=== PATIENT | female | born 1965 | race Caucasian/White ===

== ENCOUNTER 2016-09-18 15:46 | Inpatient (IN) | payer MEDICARE ==
[~2016-09-18] VITALS: Ht 172.7 cm; Wt 73.8 kg
[2016-09-18 15:47] VITALS: BP 129/59; PULSE 94; RESP 18; TEMP 98.6; O2SAT 99
--- NOTE | 2016-09-18 16:42 | PD ---
HPI Chief Complaint: Diabetic Time Seen by Provider: 16:41 Travel History International Travel<30 days: No Contact w/Intl Traveler<30days: No Traveled to known affect area: No History of Present Illness HPI 51-year-old female came to the emergency room with history of vomiting since last night. Patient is diabetic and feels very dehydrated. Her blood sugar in triage was 374. She says her whole body is hurting. Her mother is here with her as well and says that she has been coughing. Patient has history of pneumonia in the past couple times and on one occasion she required to be intubated. Here patient has been afebrile. She is awake and answering questions but appears to be anxious. She says she's been taking her insulin like she supposed to. PFSH Past Medical History Narrative Medical List of her past medical, surgical, social and family history was reviewed from the nursing note. Diabetes: Yes ?: Not LMP: MENOPAUSAL Social History Tobacco Use: Yes Allergies-Medications (Allergen,Severity, Reaction): Coded Allergies: Sulfa (Verified Allergy, Severe, Hives, 09/18/16) Comments List of her allergies reviewed from the nursing note. Reported Meds & Prescriptions Reported Meds & Active Scripts Active Reported Lamictal (Lamotrigine) 200 Mg Tab 200 Mg PO HS Vistaril (Hydroxyzine Pamoate) 25 Mg Cap 25 Mg PO BID Ventolin Hfa 18 GM Inh (Albuterol Sulfate) 90 Mcg/Act Aer 1 Puff INH Q4H Trazodone (Trazodone HCl) 100 Mg Tab 400 Mg PO HS Allergy Relief (Loratadine) 10 Mg Tab 10 Mg PO DAILY Bentyl (Dicyclomine HCl) 20 Mg Tab 20 Mg PO TID Folate (Folic Acid) 1 Mg Tab 1 Mg PO DAILY Pantoprazole (Pantoprazole Sodium) 40 Mg Tab 40 Mg PO DAILY Zantac (Ranitidine HCl) 150 Mg Tab 150 Mg PO BID Loperamide (Loperamide HCl) 2 Mg Tab 4 Mg PO TID PRN One tablet after each loose stool. Not to exceed 8 tablets per day. Potassium Chloride ER (Potassium Chloride) 10 Meq Cap 10 Meq PO DAILY Lasix (Furosemide) 40 Mg Tab 40 Mg PO DAILY Levothyroxine (Levothyroxine Sodium) 175 Mcg Tab 175 Mcg PO DAILY Gabapentin 600 Mg Tab 600 Mg PO TID Zocor (Simvastatin) 20 Mg Tab 20 Mg PO HS Humalog Inj (Insulin Human Lispro) 1,000 Unit/10 Ml Vial SQ ACHS Sliding Scale Levemir Inj (Insulin Detemir) 1,000 unit/ 10 ML Vial 8 Units SQ HS Do not mix with any other Insulin. Phenergan Supp (Promethazine HCl) 25 Mg Supp 25 Mg RECTAL BID PRN Narrative Medication Awaiting for the nurse to the med reconciliation. Review of Systems Except as stated in HPI: all other systems reviewed are Neg Physical Exam Narrative GENERAL: Awake, alert, anxious, moderate distress SKIN: Focused skin assessment warm/dry. HEAD: Atraumatic. Normocephalic. EYES: Pupils equal and round. No scleral icterus. No injection or drainage. ENT: No nasal bleeding or discharge. Dry mucous membrane NECK: Trachea midline. No JVD. CARDIOVASCULAR: Regular rate and rhythm. No murmur appreciated. RESPIRATORY: No accessory muscle use. Clear to auscultation. Breath sounds equal bilaterally. GASTROINTESTINAL: Abdomen soft, non-tender, nondistended. Hepatic and splenic margins not palpable. MUSCULOSKELETAL: No obvious deformities. No clubbing. No cyanosis. No edema. NEUROLOGICAL: Awake and alert. No obvious cranial nerve deficits. Motor grossly within normal limits. Normal speech. PSYCHIATRIC: Appropriate mood and affect; insight and judgment normal. Data Data Last Documented VS Vital Signs Date Time Temp Pulse Resp B/P Pulse Ox O2 Delivery O2 Flow Rate FiO2 09/18/16 18:39 105 16 146/71 97 Room Air 09/18/16 15:47 98.6 Orders Basic Metabolic Panel (Bmp) (09/18/16 16:48) Complete Blood Count With Diff (09/18/16 16:48) Blood Culture (09/18/16 16:48) Electrocardiogram (09/18/16 16:48) Beta Hydroxybutyrate (Acetone) (09/18/16 16:48) Urinalysis - C+S If Indicated (09/18/16 16:48) Chest, Single Ap (09/18/16 16:48) Blood Glucose (09/18/16 16:48) Ecg Monitoring (09/18/16 16:48) Iv Access Insert/Monitor (09/18/16 16:48) Oximetry (09/18/16 16:48) NPO (09/18/16 16:48) Sodium Chlor 0.9% 1000 Ml Inj (Ns 1000 M (09/18/16 16:48) Sodium Chloride 0.9% Flush (Ns Flush) (09/18/16 17:00) Insulin Human Regular Inj (Novolin R Inj (09/18/16 17:15) Blood Glucose (09/18/16 17:14) Prochlorperazine Inj (Compazine Inj) (09/18/16 18:45) Urine Culture (09/18/16 17:45) Ceftriaxone Inj (Rocephin Inj) (09/18/16 19:00) Admit Order (Ed Use Only) (09/18/16 19:15) Sodium Chlor 0.9% 1000 Ml Inj (Ns 1000 M (09/18/16 19:30) Labs Laboratory Tests Test 09/18/16 17:45 Sodium Level 137 MEQ/L Potassium Level 4.3 MEQ/L Chloride Level 98 MEQ/L Carbon Dioxide Level 28.6 MEQ/L Anion Gap 10 MEQ/L Blood Urea Nitrogen 23 MG/DL Creatinine 1.34 MG/DL Estimat Glomerular Filtration 42 ML/MIN Rate Random Glucose 331 MG/DL Calcium Level 8.5 MG/DL Total Bilirubin 0.4 MG/DL Direct Bilirubin 0.1 MG/DL Indirect Bilirubin 0.3 MG/DL Aspartate Amino Transf 18 U/L (AST/SGOT) Alanine Aminotransferase 23 U/L (ALT/SGPT) Alkaline Phosphatase 87 U/L Total Protein 7.1 GM/DL Albumin 3.4 GM/DL Lipase 34 U/L B-Hydroxybutyrate 1.89 MMOL/L White Blood Count 17.9 TH/MM3 Red Blood Count 3.93 MIL/MM3 Hemoglobin 11.9 GM/DL Hematocrit 36.3 % Mean Corpuscular Volume 92.5 FL Mean Corpuscular Hemoglobin 30.2 PG Mean Corpuscular Hemoglobin 32.7 % Concent Red Cell Distribution Width 12.8 % Platelet Count 220 TH/MM3 Mean Platelet Volume 8.6 FL Neutrophils (%) (Auto) 83.4 % Lymphocytes (%) (Auto) 8.3 % Monocytes (%) (Auto) 8.0 % Eosinophils (%) (Auto) 0.0 % Basophils (%) (Auto) 0.3 % Neutrophils # (Auto) 14.9 TH/MM3 Lymphocytes # (Auto) 1.5 TH/MM3 Monocytes # (Auto) 1.4 TH/MM3 Eosinophils # (Auto) 0.0 TH/MM3 Basophils # (Auto) 0.1 TH/MM3 CBC Comment DIFF FINAL Differential Comment Urine Color YELLOW Urine Turbidity HAZY Urine pH 6.0 Urine Specific [place] 1.019 Urine Protein 100 mg/dL Urine Glucose (UA) 1000 mg/dL Urine Ketones 40 mg/dL Urine Occult Blood MOD Urine Nitrite POS Urine Bilirubin NEG Urine Urobilinogen LESS THAN 2.0 MG/DL Urine Leukocyte Esterase MOD Urine RBC 4 /hpf Urine WBC 74 /hpf Urine Squamous Epithelial <1 /hpf Cells Urine Bacteria MANY /hpf Microscopic Urinalysis Comment CULTURE INDICATED MDM Medical Decision Making Medical Screen Exam Complete: Yes Emergency Medical Condition: Yes Medical Record Reviewed: Yes Interpretation(s) Twelve-lead EKG was reviewed by me. Normal sinus rhythm, normal axis, nonspecific ST-T wave changes. Heart rate of 96 bpm. Differential Diagnosis DKA, hyperglycemia, acute gastritis, UTI, pneumonia Narrative Course 5:13 PM awaiting for the blood test results. Patient is getting 10 units of subcutaneous insulin and 2 L of IV fluid bolus. A repeat blood glucose will be done and an hour. 6:54 PM blood test results are back. Patient does have ketonemia. UA suggestive of UTI. I've ordered 1 g of IV Rocephin for her. Patient continues to be nauseous and I've ordered IV Compazine. I would prefer to admit her since patient in DKA. Awaiting for the hospitalist to call back. Critical Care Narrative Aggregate critical care time was 45 minutes. Time to perform other separately billable procedures was not included in the critical care time. My time did not include minutes spent treating any other patients simultaneously or on activities that did not directly contribute to the patient's treatment. The services I provided to this patient were to treat and/or prevent clinically significant deterioration that could result in: DKA, fluid sensitization, UTI, antibiotic I provided critical care services requiring my management, as noted below: Chart data review, documentation time, medication orders and management, vital sign assessments/reviewing monitor data, ordering and reviewing lab tests, ordering and interpreting/reviewing x-rays and diagnostic studies, care of the patient and discussion of the patient with the admitting physicians. Procedures EKG Prior to Arrival: No Diagnosis Primary Impression: DKA (diabetic ketoacidoses) Qualified Code: E10.10 - Diabetic ketoacidosis without coma associated with type 1 diabetes mellitus Additional Impressions: Nausea & vomiting Qualified Code: R11.2 - Intractable vomiting with nausea, unspecified vomiting type UTI (urinary tract infection) Qualified Code: N39.0 - Urinary tract infection without hematuria, site unspecified Dehydration Kelsey Root MD September 18, 2016 16:42
[2016-09-18] MEDS ORDERED: SODIUM CHLOR 0.9% 1000 ML INJ 1,000 ML IV ONE ×2 (16:48→19:30)
[2016-09-18 17:00] VITALS: BP 141/93; PULSE 104; RESP 16; O2SAT 98
[2016-09-18] MEDS ORDERED: SODIUM CHLORIDE 0.9% FLUSH 10 ML FLUSH IVF PRN (17:00)
[2016-09-18 17:02] VITALS: O2SAT 97
[2016-09-18] MEDS ORDERED: INSULIN HUMAN REGULAR 1,000 UNITS/10 ML VIAL SQ ONE (17:15)
--- NOTE | 2016-09-18 17:15 | RADRPT ---
EXAM DATE/TIME: 09/18/2016 17:03 [facility] COMPARISON: No previous studies available for comparison. INDICATIONS : Cough MEDICAL HISTORY : Diabetes mellitus type II. Pneumonia SURGICAL HISTORY : None. ENCOUNTER: Initial ACUITY: 2 days PAIN SCORE: 0/10 LOCATION: Bilateral chest FINDINGS: A single view of the chest demonstrates the lungs to be symmetrically aerated without evidence of mas s, infiltrate or effusion. The cardiomediastinal contours are unremarkable. Osseous structures are intact. CONCLUSION: No acute disease. Jack Sung MD on September 18, 2016 at 17:13 Board Certified Radiologist. This report was verified electronically.
[2016-09-18 18:32] LABS: AUTOMATED NEUTROPHIL # 14.9 TH/MM3 (1.8-7.7); BASOPHIL # 0.1 TH/MM3 (0-0.2); BASOPHIL % 0.3 % (0.0-2.0); HEMATOCRIT 36.3 % (35.0-46.0); HEMO FLAGS DIFF FINAL; LYMPH % 8.3 % (9.0-44.0); LYMPHOCYTE # 1.5 TH/MM3 (1.0-4.8); MEAN CELL VOLUME 92.5 FL (80.0-100.0); MEAN CORPUSCULAR HEMOGLOBIN 30.2 PG (27.0-34.0); MEAN CORPUSCULAR HGB CONC 32.7 % (32.0-36.0); NEUT % 83.4 % (16.0-70.0); PLATELET COUNT 220 TH/MM3 (150-450); RED BLOOD COUNT 3.93 MIL/MM3 (4.00-5.30); RED CELL DISTRIBUTION WIDTH 12.8 % (11.6-17.2); WHITE BLOOD COUNT 17.9 TH/MM3 (4.0-11.0)
[2016-09-18 18:39] VITALS: BP 146/71; PULSE 105; RESP 16; O2SAT 97
[2016-09-18 18:45] LABS: BACTERIA, URINE MANY /hpf; BLOOD, URINE MOD (NEG); COMMENT (UR) CULTURE INDICATED; CULTURE IF INDICATED CULTURE INDICATED; GLUCOSE,URINE 1000 mg/dL (NEG); KETONE, URINE 40 mg/dL (NEG); NITRITE,URINE POS (NEG); SQUAMOUS EPITHELIAL CELL URINE <1 /hpf (0-5); URINE COLOR YELLOW (YELLW/STRAW)
[2016-09-18] MEDS ORDERED: PROCHLORPERAZINE INJ 10 MG/2 ML VIAL IV PUSH ONE (18:45)
[2016-09-18 18:52] LABS: BICARBONATE 28.6 MEQ/L (21.0-32.0); POTASSIUM 4.3 MEQ/L (3.5-5.1)
[2016-09-18 18:53] LABS: BETA-HYDROXYBUTYRATE 1.89 MMOL/L (0.00-0.39)
[2016-09-18] MEDS ORDERED: cefTRIAXone INJ 1,000 MG in SODIUM CHLORIDE 0.9% INJ 100 ML IV ONE (19:00)
[2016-09-18] MEDS ORDERED: SENNOSIDES 8.6 MG TAB PO PRN (19:45)
[2016-09-18] MEDS ORDERED: NALOXONE HCL 0.4 MG/ML AMP IV PRN (19:45)
[2016-09-18] MEDS ORDERED: SODIUM CHLORIDE 0.9% FLUSH 10 ML FLUSH IV FLUSH PRN (19:45)
[2016-09-18] MEDS ORDERED: ACETAMINOPHEN 325 MG TAB PO PRN (19:45)
[2016-09-18] MEDS: NICOTINE 14 MG/24 HR PATCH T-DERMAL SCH (19:45)
[2016-09-18] MEDS ORDERED: TRAZ100T4 PO (19:52)
[2016-09-18] MEDS ORDERED: ALLE10TA PO (19:52)
[2016-09-18] MEDS ORDERED: FOLI1TAB4 PO (19:52)
[2016-09-18] MEDS ORDERED: PROM1SUP7 RECTAL (19:52)
[2016-09-18] MEDS ORDERED: LOPE2TAB3 PO (19:52)
[2016-09-18] MEDS ORDERED: POTA10CA PO (19:52)
[2016-09-18] MEDS ORDERED: VENTAER INH (19:52)
[2016-09-18] MEDS ORDERED: HUMALOG SQ (19:52)
[2016-09-18] MEDS ORDERED: LAMI200T PO (19:52)
[2016-09-18] MEDS ORDERED: LEVO175T2 PO (19:52)
[2016-09-18] MEDS ORDERED: FURO1TAB60 PO (19:52)
[2016-09-18] MEDS ORDERED: GABA600T PO (19:52)
[2016-09-18] MEDS ORDERED: VIST25CA PO (19:52)
[2016-09-18] MEDS ORDERED: BENT20TA PO (19:52)
[2016-09-18] MEDS ORDERED: PANT40TA3 PO (19:52)
[2016-09-18] MEDS ORDERED: ZANT150T2 PO (19:52)
[2016-09-18] MEDS ORDERED: LEVEMIR SQ (19:52)
[2016-09-18] MEDS ORDERED: ZOCO20TA PO (19:52)
--- NOTE | 2016-09-18 19:52 | HHI.HP ---
[facility] No Primary Care Physician Admission Diagnosis DKA, UTI Diagnoses: Chief Complaint: N/V, abdominal pain Travel History International Travel<30 Days: No Contact w/Intl Traveler <30 Da: No Traveled to Known Affected Are: No History of Present Illness The patient is a 51-year-old female with past medical history of diabetes who is presenting to the hospital with nausea and vomiting as well as abdominal pain. The patient says that she ate a salad bar last night and shortly thereafter started to feel sick. She said she initially felt chills and then developed stomach pain along with nausea and vomiting. She says she has been vomiting all night and all day. She says the medications received in the emergency department has improved her vomiting. She is very thirsty at this time. The patient states her abdominal pain is a 9 out of 10 in severity. It is located at the center of her abdomen. She also describes low back pain which she attributes to possibly her kidneys. She also has pain in the back of her thighs. She says she does feel this way when her sugars get out of control sometimes. She did not sleep at all overnight. She denies any pain on urination. She says she is currently visiting from [place]. She says she does tend to come to the hospital frequently secondary to her brittle diabetes. She says she takes 8 units of Levemir at night and is covered by a NovoLog sliding scale. She adjusts her Levemir to 7 units at night when traveling as she is doing at this time. Review of Systems Except as stated in HPI: all other systems reviewed are Neg Past Family Social History Past Medical History Diabetes Degenerative disc disease Left kidney cancer status post surgery Thyroid cancer status post thyroidectomy Pancreatitis UTI Allergies: Coded Allergies: Sulfa (Verified Allergy, Severe, Hives, 09/18/16) Active Ordered Medications Current Medications Medications (Trade) Dose Ordered Sig/[place] Route Start Time Stop Time Status Last Admin Sodium Chloride 2 ml 2 ml UNSCH PRN IVF 09/18/16 17:00 (NS 1000 ml Inj) 1,000 ml @ 999 mls/hr BOLUS ONCE IV 09/18/16 19:30 09/18/16 20:30 09/18/16 19:21 (Habitrol 14 Mg Patch.24 Hr) 1 patch DAILY T-DERMAL 09/18/16 19:45 UNV Miscellaneous Information 1 1 DAILY T-DERMAL 09/19/16 09:00 UNV (NS 1000 ml Inj) 1,000 ml @ 100 mls/hr Q10H IV 09/18/16 19:33 UNV (NS Flush) 2 ml UNSCH PRN IV FLUSH 09/18/16 19:45 UNV (NS Flush) 2 ml BID IV FLUSH 09/18/16 21:00 UNV (Tylenol) 650 mg Q4H PRN PO 09/18/16 19:45 UNV (Zofran Inj) 4 mg Q6H PRN IVP 09/18/16 19:45 UNV (Colace) 100 mg Q12H PO 09/18/16 19:45 UNV (Senokot) 17.2 mg Q12H PRN PO 09/18/16 19:45 UNV (Tylenol) 650 mg Q6H PRN PO 09/18/16 19:45 UNV (Roxicodone) 10 mg Q4H PRN PO 09/18/16 19:45 UNV (Morphine Inj) 4 mg Q4H PRN IV 09/18/16 19:45 UNV (Roxicodone) 5 mg Q4H PRN PO 09/18/16 19:45 UNV Naloxone HCl 0.4 mg 0.4 mg UNSCH PRN IV 09/18/16 19:45 UNV (Rocephin Inj/NS Inj) 100 ml @ 200 mls/hr Q24H IV 09/19/16 19:00 UNV (Synthroid) 175 mcg DAILY@0600 PO 09/19/16 06:00 Family History The patient is adopted. Social History She smokes half a pack daily. She does not drink or use illicit substances. Physical Exam Vital Signs Vital Signs Date Time Temp Pulse Resp B/P Pulse Ox O2 Delivery O2 Flow Rate FiO2 09/18/16 18:39 105 16 146/71 97 Room Air 09/18/16 17:10 108 14 98 Room Air 09/18/16 17:02 97 Room Air 09/18/16 17:00 104 16 141/93 98 Room Air 09/18/16 15:47 98.6 94 18 129/59 99 Physical Exam GENERAL: This is a well-nourished, well-developed patient, in no apparent distress. SKIN: No rashes, ecchymoses or lesions. Cool and dry. HEAD: Atraumatic. Normocephalic. No temporal or scalp tenderness. EYES: Pupils equal round and reactive. Extraocular motions intact. No scleral icterus. No injection or drainage. ENT: Nose without bleeding, purulent drainage or septal hematoma. Throat without erythema, tonsillar hypertrophy or exudate. Uvula midline. Airway patent. NECK: Trachea midline. No JVD or lymphadenopathy. Supple, nontender, no meningeal signs. CARDIOVASCULAR: Tachycardic without murmurs, gallops, or rubs. RESPIRATORY: Clear to auscultation. Breath sounds equal bilaterally. No wheezes , rales, or rhonchi. GASTROINTESTINAL: Abdomen soft, diffusely tender, nondistended. No hepato- splenomegaly, or palpable masses. No guarding or rebound. MUSCULOSKELETAL: Extremities without clubbing, cyanosis, or edema. No joint tenderness, effusion, or edema noted. NEUROLOGICAL: Awake and alert. Cranial nerves II through XII intact. Motor and sensory grossly within normal limits. Five out of 5 muscle strength in all muscle groups. Normal speech. PSYCH: Anxious. Laboratory Laboratory Tests Test 09/18/16 17:45 White Blood Count 17.9 Red Blood Count 3.93 Hemoglobin 11.9 Hematocrit 36.3 Mean Corpuscular Volume 92.5 Mean Corpuscular Hemoglobin 30.2 Mean Corpuscular Hemoglobin 32.7 Concent Red Cell Distribution Width 12.8 Platelet Count 220 Mean Platelet Volume 8.6 Neutrophils (%) (Auto) 83.4 Lymphocytes (%) (Auto) 8.3 Monocytes (%) (Auto) 8.0 Eosinophils (%) (Auto) 0.0 Basophils (%) (Auto) 0.3 Neutrophils # (Auto) 14.9 Lymphocytes # (Auto) 1.5 Monocytes # (Auto) 1.4 Eosinophils # (Auto) 0.0 Basophils # (Auto) 0.1 CBC Comment DIFF FINAL Differential Comment Urine Color YELLOW Urine Turbidity HAZY Urine pH 6.0 Urine Specific [place] 1.019 Urine Protein 100 Urine Glucose (UA) 1000 Urine Ketones 40 Urine Occult Blood MOD Urine Nitrite POS Urine Bilirubin NEG Urine Urobilinogen LESS THAN 2.0 Urine Leukocyte Esterase MOD Urine RBC 4 Urine WBC 74 Urine Squamous Epithelial <1 Cells Urine Bacteria MANY Microscopic Urinalysis Comment CULTURE INDICATED Sodium Level 137 Potassium Level 4.3 Chloride Level 98 Carbon Dioxide Level 28.6 Anion Gap 10 Blood Urea Nitrogen 23 Creatinine 1.34 Estimat Glomerular Filtration 42 Rate Random Glucose 331 Calcium Level 8.5 B-Hydroxybutyrate 1.89 Date/Time Procedure Status Source Growth 09/18/16 18:15 Aerobic Blood Culture Received Blood Peripheral Pending 09/18/16 18:15 Anaerobic Blood Culture Received Blood Peripheral Pending 09/18/16 17:45 Urine Culture Received Urine Random Urine Pending Result Diagram: 09/18/16 1745 09/18/16 1745 Imaging Last Impressions Chest X-Ray 09/18/16 1648 Signed Impressions: Service Date/Time: Sunday, September 18, 2016 17:03 - CONCLUSION: No acute disease. Jack Sung MD Assessment and Plan Assessment and Plan Sepsis The pt is tachycardic and has leukocytosis in the setting of a UTI. She received ceftriaxone. - continue ceftriaxone. - follow urine and blood cultures. - IVFs. DKA The pt had a glucose of 331 on admission and a beta hydroxybutyric acid level of 1.89. Her anion gap was negative. She has been having nausea and vomiting. She received 10 units of insulin in the emergency department. - Advance clear liquid diet. - Continue normal saline. - Medium sliding scale. - Resume home Levemir if tolerating a diet. Monitor glucose closely. - Antiemetics as needed. Abdominal pain/ Nausea and vomiting It seems that the patient developed symptoms following eating at a salad bar. Possibly secondary to gastroenteritis. The patient also has a history of pancreatitis. - Check LFTs and a lipase level. - IV fluids. - Advance as tolerated. - Pain control and antiemetics as needed. - PPI. Acute renal insufficiency Likely prerenal secondary to above. - IV fluids and monitor creatinine. - Continue ceftriaxone. HTN Likely secondary to nausea, vomiting and pain. - Antiemetics and pain control as needed. - IV Vasotec as needed. Nicotine abuse The patient smokes half a pack daily. - Cessation instruction. - Nicotine patch. PPx: SCDs. Code Status Full. Discussed Condition With Pt, pt's mother, Dr. Root. Physician Certification 2 Midnight Certification Type: Admission for Inpatient Services Order for Inpatient Services The services are ordered in accordance with Medicare regulations or non- Medicare payer requirements, as applicable. In the case of services not specified as inpatient-only, they are appropriately provided as inpatient services in accordance with the 2-midnight benchmark. Estimated LOS (days): 2 days is the estimated time the patient will need to remain in the hospital, assuming treatment plan goals are met and no additional complications. Post-Hospital Plan: Home Jose Jefferson DO September 18, 2016 19:52
[2016-09-18] MEDS: MORPHINE SULFATE 4 MG/ML INJ IV PRN (19:58)
[2016-09-18 19:59] VITALS: BP 123/71; PULSE 109; RESP 20; O2SAT 99
[2016-09-18] MEDS ORDERED: GLUCAGON 1 MG/ML VIAL OTHER PRN (20:00)
[2016-09-18] MEDS: DOCUSATE SODIUM 100 MG CAP PO SCH (20:00)
[2016-09-18] MEDS: SODIUM CHLOR 0.9% 1000 ML INJ 1,000 ML IV SCH (20:00)
[2016-09-18] MEDS ORDERED: DEXTROSE 50% IN WATER 50 ML VIAL(D50) IV PUSH PRN (20:00)
[2016-09-18] MEDS ORDERED: ENALAPRILAT 1.25 MG/ML VIAL IV PUSH PRN (20:00)
[2016-09-18] MEDS: PANTOPRAZOLE SODIUM 40 MG VIAL IV PUSH SCH (20:00)
[2016-09-18] MEDS: INSULIN ASPART SUPPLEMENTAL SCALE SQ SCH (20:58)
[2016-09-18] MEDS: SODIUM CHLORIDE 0.9% FLUSH 10 ML FLUSH IV FLUSH SCH (21:00)
[2016-09-18 21:57] VITALS: BP 131/68; PULSE 112; RESP 20; TEMP 101.4; O2SAT 97
[2016-09-18] MEDS: ACETAMINOPHEN 325 MG TAB PO PRN (22:30)
[2016-09-18] MEDS: hydrOXYzine PAMOATE 25 MG CAP PO SCH (22:31)
[2016-09-18] MEDS: lamoTRIgine 100 MG TAB PO SCH (22:31)
[2016-09-18] MEDS: traZODone HCL 100 MG TAB PO SCH (22:31)
[2016-09-18 23:31] LABS: INDIRECT BILIRUBIN 0.3 MG/DL (0.0-0.8); TOTAL BILIRUBIN ADULT 0.4 MG/DL (0.2-1.0)
[2016-09-19] VITALS (11 sets, daily range): BP systolic 95–186; BP diastolic 52–85; PULSE 100–135; RESP 17–18; TEMP 98.2–102.6; O2SAT 93–99
[2016-09-19] MEDS: MORPHINE SULFATE 4 MG/ML INJ IV PRN ×5 (02:32→22:23)
[2016-09-19] MEDS ORDERED: DIATRIZOATE MEGLUM/DIATRIZOATE SOD 9 ML CUP PO ONE (02:57)
[2016-09-19] MEDS: AMPICILLIN-SULBACTAM INJ 3 GM in SODIUM CHLORIDE 0.9% INJ 100 ML IV SCH ×2 (03:25→08:10)
[2016-09-19] MEDS: ONDANSETRON HCL 4 MG/2 ML VIAL IVP PRN ×3 (03:27→20:46)
[2016-09-19 04:49] LABS: AUTOMATED NEUTROPHIL # 12.9 TH/MM3 (1.8-7.7); BASOPHIL % 0.3 % (0.0-2.0); EOSINOPHIL % 0.2 % (0.0-4.0); HEMATOCRIT 35.4 % (35.0-46.0); LYMPH % 6.5 % (9.0-44.0); MEAN CELL VOLUME 93.8 FL (80.0-100.0); MEAN CORPUSCULAR HEMOGLOBIN 31.1 PG (27.0-34.0); MEAN CORPUSCULAR HGB CONC 33.2 % (32.0-36.0); MONO % 9.7 % (0.0-8.0); NEUT % 83.3 % (16.0-70.0); PLATELET COUNT 205 TH/MM3 (150-450); RED BLOOD COUNT 3.78 MIL/MM3 (4.00-5.30); RED CELL DISTRIBUTION WIDTH 13.2 % (11.6-17.2); WHITE BLOOD COUNT 15.5 TH/MM3 (4.0-11.0)
[2016-09-19 04:53] LABS: HEMO FLAGS AUTO DIFF
[2016-09-19 04:54] LABS: ALKALINE PHOSPHATASE 100 U/L (45-117); ALT (GPT) 24 U/L (10-53); ANION GAP 11 MEQ/L (5-15); AST (GOT) 31 U/L (15-37); BICARBONATE 22.7 MEQ/L (21.0-32.0); BLOOD UREA NITROGEN 19 MG/DL (7-18); CHLORIDE 103 MEQ/L (98-107); GLOMERULAR FILTRATION RATE 46 ML/MIN (>89); POTASSIUM 4.3 MEQ/L (3.5-5.1); SODIUM (NA) 137 MEQ/L (136-145); TOTAL BILIRUBIN ADULT 0.4 MG/DL (0.2-1.0)
[2016-09-19] MEDS: SODIUM CHLOR 0.9% 1000 ML INJ 1,000 ML IV SCH ×3 (04:56→18:23)
[2016-09-19 05:40] LABS: SCAN/DIFF AUTO DIFF CONFIRMED
[2016-09-19] MEDS: INSULIN DETEMIR 100 UNITS/ML VIAL SQ SCH ×3 (05:45→20:39)
--- NOTE | 2016-09-19 06:26 | RADRPT ---
EXAM DATE/TIME: 09/19/2016 06:13 [facility] COMPARISON: No previous studies available for comparison. INDICATIONS : Medial abdominal pain. ORAL CONTRAST: Prescribed oral contrast ingested. RADIATION DOSE: 6.06 CTDIvol (mGy) MEDICAL HISTORY : Pancreatitis. Diverticulosis. Diabetes mellitus type 2.Renal cancer. SURGICAL HISTORY : section. ENCOUNTER: Initial ACUITY: 1 day PAIN SCALE: 8/10 LOCATION: medial abdomen TECHNIQUE: Volumetric scanning of the abdomen and pelvis was performed. Using automated exposure control and ad justment of the mA and/or kV according to patient size, radiation dose was kept as low as reasonably achievable to obtain optimal diagnostic quality images. FINDINGS: CT Abdomen: The liver, spleen, pancreas, kidneys, adrenals are unremarkable. There is no evidence for any appreciable pathological adenopathy, free fluid, or bowel obstruction. Tiny pericardial effusio n is seen. Chronic vascular calcifications are present involving the aorta, iliac arteries without an y significant stenosis or aneurysmal dilatations for technique. There is slight indistinct haziness i n bilateral perinephric spaces mainly on the left side of uncertain etiology most likely chronic. The re is slight scarring in the right middle lobe and lingula. CT pelvis: There is no evidence for mass, abscess formation, or any significant adenopathy within the pelvis. There is a tiny subcentimeter bone island in left proximal femur. There are degenerative keisha nges and possible bulging discs in the lower lumbosacral spine not adequately characterized. CONCLUSION: Tiny pericardial effusion and chronic changes. Raza Grimm MD on September 19, 2016 at 6:21 Board Certified Radiologist. This report was verified electronically.
[2016-09-19] MEDS: LEVOTHYROXINE SODIUM 25 MCG TAB PO SCH (06:43)
[2016-09-19] MEDS: INSULIN ASPART SUPPLEMENTAL SCALE SQ SCH ×4 (06:43→20:45)
[2016-09-19] MEDS: LEVOTHYROXINE SODIUM 150 MCG TAB PO SCH (06:43)
[2016-09-19] MEDS: SODIUM CHLORIDE 0.9% FLUSH 10 ML FLUSH IV FLUSH SCH ×2 (08:07→20:29)
[2016-09-19] MEDS: hydrOXYzine PAMOATE 25 MG CAP PO SCH ×2 (08:09→20:25)
[2016-09-19] MEDS: NICOTINE 14 MG/24 HR PATCH T-DERMAL SCH (08:09)
[2016-09-19] MEDS: REMOVE OLD PATCH T-DERMAL SCH (08:09)
[2016-09-19] MEDS: GABAPENTIN 100 MG CAP PO SCH ×3 (08:09→17:12)
[2016-09-19] MEDS: DOCUSATE SODIUM 100 MG CAP PO SCH ×2 (08:09→20:25)
--- NOTE | 2016-09-19 10:11 | HHI.PR ---
Subjective Remarks Patient seen for follow up sepsis/UTI. 09/19/16-patient seen this AM. Per nursing, micro called back with report of gram - rods growing in blood cx 09/18. BPs on the low end this AM (MAP as low as the 60s). Temp up to 101.4F overnight. Riddhi reports ab pain well controlled at this point. Nausea essentially resolved. Tolerating clears. Wants to advance diet. Also requests we change levemir to HS, per home regimen. No other complaints. No CP, SOB, or dizziness. Objective Vitals Vital Signs Date Time Temp Pulse Resp B/P Pulse Ox O2 Delivery O2 Flow Rate FiO2 09/19/16 08:00 98.2 100 17 113/55 96 09/19/16 04:00 101.2 126 18 137/63 93 09/19/16 00:00 101.0 105 18 95/52 93 09/18/16 21:57 101.4 112 20 131/68 97 09/18/16 20:28 16 09/18/16 19:59 109 20 123/71 99 09/18/16 18:39 105 16 146/71 97 Room Air 09/18/16 17:10 108 14 98 Room Air 09/18/16 17:02 97 Room Air 09/18/16 17:00 104 16 141/93 98 Room Air 09/18/16 15:47 98.6 94 18 129/59 99 I/O 09/18/16 09/18/16 09/18/16 09/19/16 09/19/16 09/19/16 07:00 15:00 23:00 07:00 15:00 23:00 Intake Total 153 ml 1165 ml Balance 153 ml 1165 ml Intake Oral 480 ml IV Total 153 ml 685 ml # Voids 2 # Bowel Movements 0 Result Diagram: 09/19/16 0403 09/19/16 0403 Objective Remarks GENERAL: Well-appearing. Sitting up in bed. Mild diaphoresis. SKIN: No rashes, ecchymoses or lesions. Cool and dry. NECK: Trachea midline. No JVD or lymphadenopathy. Supple, nontender, no meningeal signs. CARDIOVASCULAR: RRR. No murmurs. RESPIRATORY: Clear to auscultation. Breath sounds equal bilaterally. No wheezes , rales, or rhonchi. GASTROINTESTINAL: Abdomen soft, diffusely tender, nondistended. No hepato- splenomegaly, or palpable masses. No guarding or rebound. MUSCULOSKELETAL: Extremities without clubbing, cyanosis, or edema. No joint tenderness, effusion, or edema noted. NEUROLOGICAL: Awake and alert. Moves extremities well. A/P Problem List: (1) DKA (diabetic ketoacidoses) ICD Code: E13.10 Status: Acute (2) Sepsis ICD Code: A41.9 Status: Acute (3) UTI (urinary tract infection) ICD Code: N39.0 Status: Acute (4) Renal insufficiency ICD Code: N28.9 Status: Acute (5) Tobacco abuse ICD Code: Z72.0 Status: Acute (6) Nausea & vomiting ICD Code: R11.2 Status: Acute Assessment and Plan Sepsis: tachycadia + fever + leukocytosis in setting of likely UTI. - change unasyn (09/19-) to cefepime to cover pseudomonas while awaiting blood cx results, as below. S/p tx with rocephin x1 (09/18). - WBC trending down - check lactic acid - blood cultures now growing gram - rods. Will consult ID. Urine cx pending. - IVFs. Give additional 1L bolus this AM. DKA: The pt had a glucose of 331 on admission and a beta hydroxybutyric acid level of 1.89. Her anion gap was negative. She has been having nausea and vomiting. She received 10 units of insulin in the emergency department. - Advance diabetic diet. - Continue normal saline. - Medium sliding scale. Bedside glucose 350 this AM (serum 303). 12u insulin given. - Resume home levemir at this time as HS. Monitor daily ss requirement and adjust, as needed. - Antiemetics as needed. Abdominal pain/ Nausea and vomiting: It seems that the patient developed symptoms following eating at a salad bar. Possibly secondary to gastroenteritis. The patient also has a history of pancreatitis. - LFTs and lipase level ~ WNL - IV fluids. - Advance as tolerated. - Pain control with roxicodone. IV morphine for breakthrough. - Antiemetics as needed. - PPI. Acute renal insufficiency: Improving. Creatinine 1.34 on admission, now 1.23. Likely prerenal secondary to above. - IV fluids and monitor creatinine. HTN: Likely secondary to nausea, vomiting and pain. Pressures now on the low end (MAP 60-70s). - Antiemetics and pain control as needed. - IV Vasotec as needed. Nicotine abuse: The patient smokes half a pack daily. - Cessation instruction. - Nicotine patch. PPx: Alexis Davidson MD R3 September 19, 2016 10:11 - Cessation instruction. - Nicotine patch. PPx: Alexis Davidson MD R3 September 19, 2016 10:11
[2016-09-19] MEDS ORDERED: SODIUM CHLOR 0.9% 1000 ML INJ 1,000 ML IV ONE (10:15)
[2016-09-19] MEDS: CEFEPIME INJ 2,000 MG in SODIUM CHLORIDE 0.9% INJ 100 ML IV SCH ×2 (12:30→22:23)
--- NOTE | 2016-09-19 13:59 | PD.ID.CON ---
History of Present Illness Service ID Consult Requested By Reason for Consult Evaluation and Mment of Sepsis, Gram negative sudhir bacteremia. Primary Care Physician No Primary Care Physician Diagnoses: History of Present Illness is a 51 y/o CF with PMHx of renal cancer s.p partial resection of left kidney, thyroid cancer s.p thyroidectomy, DM 2 on insulin and recurrent UTIs. Patient reports to me "This is first time I have been told I have sepsis and I have never been treated for detention infections". With this background patient presents to the hospital with nausea and vomiting as well as abdominal pain. The patient says that she ate a salad bar last night and shortly thereafter started to feel sick. She said she initially felt chills and then developed stomach pain along with nausea and vomiting. She says she has been vomiting all night and all day. The patient states her abdominal pain is a 9 out of 10 in severity. It is located at the center of her abdomen. She also describes low back pain which she attributes to possibly her kidneys. She also has pain in the back of her thighs. She says she does feel this way when her sugars get out of control sometimes. She denies any pain on urination this time although endorses a h/o recurrent UTIs and being on antibiotics. Last time she was on antibiotics was 3 months back for a UTI. She says she is currently visiting from [place]. She says she does tend to come to the hospital frequently secondary to her brittle diabetes. Sepsis workup initiated and blood cultures positive. ID consulted for evaluation and Mment of Sepsis, Gram negative bacteremia. Review of Systems ROS Limitations: Poor Historian Constitutional: COMPLAINS OF: Diaphoretic episodes, Fever, Chills, DENIES: Fatigue, Weight gain, Weight loss, Dizziness, Change in appetite, Night Sweats Endocrine: DENIES: Abnorml menstrual pattern, Heat/cold intolerance, Polydipsia , Polyuria, Polyphagia Eyes: DENIES: Blurred vision, Diplopia, Eye inflammation, Eye pain, Vision loss , Photosensitivity, Double Vision Ears, nose, mouth, throat: DENIES: Tinnitus, Hearing loss, Vertigo, Nasal discharge, Oral lesions, Throat pain, Hoarseness, Ear Pain, Running Nose, Epistaxis, Sinus Pain, Toothache, Odynophagia Respiratory: DENIES: Apneas, Cough, Snoring, Wheezing, Hemoptysis, Sputum production, Shortness of breath Cardiovascular: DENIES: Chest pain, Palpitations, Syncope, Dyspnea on Exertion , PND, Lower Extremity Edema, Orthopnea, Claudication Gastrointestinal: COMPLAINS OF: Abdominal pain, Nausea, Vomiting, DENIES: Black stools, Bloody stools, Constipation, Diarrhea, Difficulty Swallowing, Anorexia Genitourinary: COMPLAINS OF: Urinary frequency, DENIES: Abnormal vaginal bleeding, Dysmenorrhea, Dyspareunia, Sexual dysfunction, Urinary incontinence, Urgency, Hematuria, Dysuria, Nocturia, Vaginal discharge Musculoskeletal: COMPLAINS OF: Back pain, DENIES: Joint pain, Muscle aches, Stiffness, Joint Swelling, Neck pain Integumentary: DENIES: Abnormal pigmentation, Pruritus, Rash, Nail changes, Breast masses, Breast skin changes, Nipple discharge Hematologic/lymphatic: DENIES: Bruising, Lymphadenopathy Immunologic/allergic: DENIES: Eczema, Urticaria Neurologic: DENIES: Abnormal gait, Headache, Localized weakness, Paresthesias, Seizures, Speech Problems, Tremor, Poor Balance Psychiatric: DENIES: Anxiety, Confusion, Mood changes, Depression, Hallucinations, Agitation, Suicidal Ideation, Homicidal Ideation, Delusions Except as stated in HPI: all other systems reviewed are Neg Past Family Social History Allergies: Coded Allergies: Sulfa (Verified Allergy, Severe, Hives, 09/18/16) Past Medical History Diabetes Degenerative disc disease Pancreatitis Recurrent UTIs Past Surgical History Left kidney cancer status post surgery Thyroid cancer status post thyroidectomy. Reported Medications Reported Meds & Active Scripts Active Reported Lamictal (Lamotrigine) 200 Mg Tab 200 Mg PO HS Vistaril (Hydroxyzine Pamoate) 25 Mg Cap 25 Mg PO BID Ventolin Hfa 18 GM Inh (Albuterol Sulfate) 90 Mcg/Act Aer 1 Puff INH Q4H Trazodone (Trazodone HCl) 100 Mg Tab 400 Mg PO HS Allergy Relief (Loratadine) 10 Mg Tab 10 Mg PO DAILY Bentyl (Dicyclomine HCl) 20 Mg Tab 20 Mg PO TID Folate (Folic Acid) 1 Mg Tab 1 Mg PO DAILY Pantoprazole (Pantoprazole Sodium) 40 Mg Tab 40 Mg PO DAILY Zantac (Ranitidine HCl) 150 Mg Tab 150 Mg PO BID Loperamide (Loperamide HCl) 2 Mg Tab 4 Mg PO TID PRN One tablet after each loose stool. Not to exceed 8 tablets per day. Potassium Chloride ER (Potassium Chloride) 10 Meq Cap 10 Meq PO DAILY Lasix (Furosemide) 40 Mg Tab 40 Mg PO DAILY Levothyroxine (Levothyroxine Sodium) 175 Mcg Tab 175 Mcg PO DAILY Gabapentin 600 Mg Tab 600 Mg PO TID Zocor (Simvastatin) 20 Mg Tab 20 Mg PO HS Humalog Inj (Insulin Human Lispro) 1,000 Unit/10 Ml Vial SQ ACHS Sliding Scale Levemir Inj (Insulin Detemir) 1,000 unit/ 10 ML Vial 8 Units SQ HS Do not mix with any other Insulin. Phenergan Supp (Promethazine HCl) 25 Mg Supp 25 Mg RECTAL BID PRN Active Ordered Medications Current Medications Medications (Trade) Dose Ordered Sig/G[place]shan Route Start Time Stop Time Status Last Admin (Habitrol 14 Mg Patch.24 Hr) 1 patch DAILY T-DERMAL 09/18/16 19:45 09/19/16 08:09 Miscellaneous Information 1 1 DAILY T-DERMAL 09/19/16 09:00 09/19/16 08:09 (NS 1000 ml Inj) 1,000 ml @ 150 mls/hr Q6H40M IV 09/18/16 20:00 09/19/16 18:23 (NS Flush) 2 ml UNSCH PRN IV FLUSH 09/18/16 19:45 (NS Flush) 2 ml BID IV FLUSH 09/18/16 21:00 09/19/16 08:07 (Tylenol) 650 mg Q4H PRN PO 09/18/16 19:45 09/19/16 16:23 (Zofran Inj) 4 mg Q6H PRN IVP 09/18/16 19:45 09/19/16 13:04 (Colace) 100 mg Q12H PO 09/18/16 20:00 09/19/16 08:09 (Senokot) 17.2 mg Q12H PRN PO 09/18/16 19:45 (Tylenol) 650 mg Q6H PRN PO 09/18/16 19:45 (Roxicodone) 10 mg Q4H PRN PO 09/18/16 19:45 09/19/16 15:32 (Morphine Inj) 4 mg Q4H PRN IV 09/18/16 19:45 09/19/16 17:12 (Roxicodone) 5 mg Q4H PRN PO 09/18/16 19:45 (Narcan Inj) 0.4 mg UNSCH PRN IV 09/18/16 19:45 (Synthroid) 150 mcg DAILY@0600 PO 09/19/16 06:00 09/19/16 06:43 (Protonix Inj) 40 mg Q24H IV PUSH 09/18/16 20:00 09/18/16 20:00 (Desyrel) 100 mg HS PO 09/18/16 21:00 09/18/16 22:31 (Vistaril) 25 mg BID PO 09/18/16 21:00 09/19/16 08:09 (LaMICtal) 200 mg HS PO 09/18/16 21:00 09/18/16 22:31 (Neurontin) 100 mg TID PO 09/19/16 09:00 09/19/16 17:12 (Synthroid) 25 mcg DAILY@06 PO 09/19/16 06:00 09/19/16 06:43 (Vasotec Inj) 1.25 mg Q6H PRN IV PUSH 09/18/16 20:00 (D50w (Vial) Inj) 25 ml UNSCH PRN IV PUSH 09/18/16 20:00 Glucagon 1 mg 1 mg UNSCH PRN OTHER 09/18/16 20:00 (Maxipime Inj/NS Inj) 100 ml @ 200 mls/hr Q8H IV 09/19/16 12:00 09/19/16 12:30 (Levemir Inj) 8 units HS SQ 09/19/16 21:00 Family History The patient is adopted ? remains to be confirmed. Social History She has a daughter and grand children. She lives in [place] and is travelling to [facility]. They have a condo in [facility]. She smokes half a pack daily. She does not drink or use illicit substances. Physical Exam Vital Signs Vital Signs Date Time Temp Pulse Resp B/P Pulse Ox O2 Delivery O2 Flow Rate FiO2 09/19/16 12:34 165/79 09/19/16 12:00 101.0 135 18 186/85 93 09/19/16 08:00 98.2 100 17 113/55 96 09/19/16 04:00 101.2 126 18 137/63 93 09/19/16 00:00 101.0 105 18 95/52 93 09/18/16 21:57 101.4 112 20 131/68 97 09/18/16 20:28 16 09/18/16 19:59 109 20 123/71 99 09/18/16 18:39 105 16 146/71 97 Room Air 09/18/16 17:10 108 14 98 Room Air 09/18/16 17:02 97 Room Air 09/18/16 17:00 104 16 141/93 98 Room Air 09/18/16 15:47 98.6 94 18 129/59 99 Physical Exam GENERAL: This is a well-nourished, well-developed patient, in no apparent distress. SKIN: No rashes, ecchymoses or lesions. Cool and dry. HEAD: Atraumatic. Normocephalic. No temporal or scalp tenderness. EYES: Pupils equal round and reactive. Extraocular motions intact. No scleral icterus. No injection or drainage. ENT: Nose without bleeding, purulent drainage or septal hematoma. Throat without erythema, tonsillar hypertrophy or exudate. Uvula midline. Airway patent. NECK: Trachea midline. Supple, nontender, no meningeal signs. CARDIOVASCULAR: RRR without murmur. RESPIRATORY: Clear to auscultation. Breath sounds equal bilaterally. No wheezes , rales, or rhonchi. GASTROINTESTINAL: Abdomen soft, non-tender, nondistended. ? CVA tenderness. MUSCULOSKELETAL: Extremities without clubbing, cyanosis, or edema. No joint tenderness, effusion, or edema noted. No calf tenderness. Negative Homans sign bilaterally. NEUROLOGICAL: Awake and alert. Grossly non focal Psych: cooperative IV line sites with no e/o infection. Laboratory Laboratory Tests Test 09/18/16 09/19/16 17:45 04:03 Sodium Level 137 137 Potassium Level 4.3 4.3 Chloride Level 98 103 Carbon Dioxide Level 28.6 22.7 Anion Gap 10 11 Blood Urea Nitrogen 23 19 Creatinine 1.34 1.23 Estimat Glomerular Filtration 42 46 Rate Random Glucose 331 303 Calcium Level 8.5 7.8 Total Bilirubin 0.4 0.4 Direct Bilirubin 0.1 Indirect Bilirubin 0.3 Aspartate Amino Transf 18 31 (AST/SGOT) Alanine Aminotransferase 23 24 (ALT/SGPT) Alkaline Phosphatase 87 100 Total Protein 7.1 6.8 Albumin 3.4 3.1 Lipase 34 39 B-Hydroxybutyrate 1.89 White Blood Count 17.9 15.5 Red Blood Count 3.93 3.78 Hemoglobin 11.9 11.7 Hematocrit 36.3 35.4 Mean Corpuscular Volume 92.5 93.8 Mean Corpuscular Hemoglobin 30.2 31.1 Mean Corpuscular Hemoglobin 32.7 33.2 Concent Red Cell Distribution Width 12.8 13.2 Platelet Count 220 205 Mean Platelet Volume 8.6 8.6 Neutrophils (%) (Auto) 83.4 83.3 Lymphocytes (%) (Auto) 8.3 6.5 Monocytes (%) (Auto) 8.0 9.7 Eosinophils (%) (Auto) 0.0 0.2 Basophils (%) (Auto) 0.3 0.3 Neutrophils # (Auto) 14.9 12.9 Lymphocytes # (Auto) 1.5 1.0 Monocytes # (Auto) 1.4 1.5 Eosinophils # (Auto) 0.0 0.0 Basophils # (Auto) 0.1 0.0 CBC Comment DIFF FINAL AUTO DIFF Differential Comment AUTO DIFF CONFIRMED Urine Color YELLOW Urine Turbidity HAZY Urine pH 6.0 Urine Specific [place] 1.019 Urine Protein 100 Urine Glucose (UA) 1000 Urine Ketones 40 Urine Occult Blood MOD Urine Nitrite POS Urine Bilirubin NEG Urine Urobilinogen LESS THAN 2.0 Urine Leukocyte Esterase MOD Urine RBC 4 Urine WBC 74 Urine Squamous Epithelial <1 Cells Urine Bacteria MANY Microscopic Urinalysis Comment CULTURE INDICATED Date/Time Procedure Status Source Growth 09/18/16 18:15 Aerobic Blood Culture - Preliminary Resulted Blood Peripheral Gram Negative Sudhir 09/18/16 18:15 Anaerobic Blood Culture - Preliminary Resulted Blood Peripheral NO GROWTH IN 1 DAY 09/18/16 17:45 Urine Culture - Preliminary Resulted Urine Random Urine Gram Negative Sudhir Result Diagram: 09/19/16 0403 09/19/16 0403 Imaging Last Impressions Abdomen/Pelvis CT 09/19/16 0000 Signed Impressions: Service Date/Time: Monday, September 19, 2016 06:13 - CONCLUSION: Tiny pericardial effusion and chronic changes. KJesús Grimm MD Chest X-Ray 09/18/16 1648 Signed Impressions: Service Date/Time: Sunday, September 18, 2016 17:03 - CONCLUSION: No acute disease. Jack Sung MD Assessment and Plan Assessment and Plan Sepsis present on admission E.coli bacteremia: likely source UTI, pyelonephritis. (Abd CT detailed report reveals ? stranding of kidneys) DM 2 uncontrolled. recurrent UTI by history, no renal stones. Recs: Continue Cefepime 2 gm IV q8hrs (Indication: E.coli bacteremia). Verigene testing with no resistance markers positive. Ok to continue Cefepime IV. Follow cultures Follow clinically. If blood cultures positive only transient will likely DC on oral antibiotics if susceptible regimen can be formed. If persistent bacteremia will need endovascular workup and likely IV antibiotics. Will follow cultures to determine. Clinically stable at this point. d/w patient and mother in room in presence of RN for patient. Gianna Gibson MD September 19, 2016 13:58
--- NOTE | 2016-09-19 15:42 | EKG ---
Date Performed: 09/18/2016 Time Performed: 17:30:02 PTAGE: 51 years EKG: Sinus rhythm POSSIBLE LEFT ATRIAL ENLARGEMENT NONSPECIFIC ST ELEVATION BORDERLINE ECG NO PREVIOUS TRACING DOCTOR: Abhinav Quiroz Interpretating Date/Time 09/19/2016 15:41:57
--- NOTE | 2016-09-19 15:43 | EKG ---
Date Performed: 09/19/2016 Time Performed: 11:26:31 PTAGE: 51 years EKG: SINUS TACHYCARDIA LOW QRS VOLTAGE IN EXTREMITY LEADS ABNORMAL RHYTHM ECG Compared to prior tracing no significant change PREVIOUS TRACING : 09/18/2016 17.30 DOCTOR: Abhinav Quiroz Interpretating Date/Time 09/19/2016 15:46:03
[2016-09-19] MEDS: ACETAMINOPHEN 325 MG TAB PO PRN ×2 (16:23→23:26)
[2016-09-19] MEDS ORDERED: cefTRIAXone INJ 1,000 MG in SODIUM CHLORIDE 0.9% INJ 100 ML IV SCH (19:00)
[2016-09-19] MEDS: PANTOPRAZOLE SODIUM 40 MG VIAL IV PUSH SCH (20:24)
[2016-09-19] MEDS: traZODone HCL 100 MG TAB PO SCH (20:25)
[2016-09-19] MEDS: lamoTRIgine 100 MG TAB PO SCH (20:25)
[2016-09-20] VITALS (7 sets, daily range): BP systolic 98–165; BP diastolic 53–82; PULSE 89–130; RESP 17–20; TEMP 97.2–101.9; O2SAT 95–98
[2016-09-20] MEDS ORDERED: DEXTROSE 50% IN WATER 50 ML SYRINGE ONE (03:14)
[2016-09-20 05:21] LABS: AUTOMATED NEUTROPHIL # 11.5 TH/MM3 (1.8-7.7); BASOPHIL % 0.1 % (0.0-2.0); EOSINOPHIL # 0.1 TH/MM3 (0-0.4); EOSINOPHIL % 0.4 % (0.0-4.0); HEMATOCRIT 29.8 % (35.0-46.0); HEMO FLAGS DIFF FINAL; LYMPH % 3.3 % (9.0-44.0); LYMPHOCYTE # 0.4 TH/MM3 (1.0-4.8); MEAN CELL VOLUME 93.5 FL (80.0-100.0); MEAN CORPUSCULAR HEMOGLOBIN 30.1 PG (27.0-34.0); MEAN CORPUSCULAR HGB CONC 32.2 % (32.0-36.0); NEUT % 86.2 % (16.0-70.0); PLATELET COUNT 163 TH/MM3 (150-450); RED BLOOD COUNT 3.19 MIL/MM3 (4.00-5.30); RED CELL DISTRIBUTION WIDTH 13.3 % (11.6-17.2); WHITE BLOOD COUNT 13.3 TH/MM3 (4.0-11.0)
[2016-09-20] MEDS: LEVOTHYROXINE SODIUM 25 MCG TAB PO SCH (05:38)
[2016-09-20] MEDS: LEVOTHYROXINE SODIUM 150 MCG TAB PO SCH (05:38)
[2016-09-20] MEDS: CEFEPIME INJ 2,000 MG in SODIUM CHLORIDE 0.9% INJ 100 ML IV SCH ×2 (05:39→11:30)
[2016-09-20] MEDS: SODIUM CHLOR 0.9% 1000 ML INJ 1,000 ML IV SCH ×3 (05:40→13:42)
[2016-09-20] MEDS: INSULIN ASPART SUPPLEMENTAL SCALE SQ SCH ×4 (05:52→20:22)
[2016-09-20 05:57] LABS: ALKALINE PHOSPHATASE 82 U/L (45-117); ALT (GPT) 22 U/L (10-53); ANION GAP 8 MEQ/L (5-15); AST (GOT) 33 U/L (15-37); BLOOD UREA NITROGEN 21 MG/DL (7-18); CHLORIDE 107 MEQ/L (98-107); GLOMERULAR FILTRATION RATE 41 ML/MIN (>89); POTASSIUM 3.7 MEQ/L (3.5-5.1); SODIUM (NA) 139 MEQ/L (136-145); TOTAL BILIRUBIN ADULT 0.3 MG/DL (0.2-1.0)
[2016-09-20] MEDS: ONDANSETRON HCL 4 MG/2 ML VIAL IVP PRN ×3 (07:23→19:59)
[2016-09-20] MEDS: MORPHINE SULFATE 4 MG/ML INJ IV PRN ×4 (07:23→20:04)
[2016-09-20] MEDS: hydrOXYzine PAMOATE 25 MG CAP PO SCH ×2 (07:24→20:03)
[2016-09-20] MEDS: REMOVE OLD PATCH T-DERMAL SCH (07:24)
[2016-09-20] MEDS: NICOTINE 14 MG/24 HR PATCH T-DERMAL SCH (07:24)
[2016-09-20] MEDS: DOCUSATE SODIUM 100 MG CAP PO SCH ×2 (07:24→20:00)
[2016-09-20] MEDS: GABAPENTIN 100 MG CAP PO SCH ×3 (07:24→17:33)
[2016-09-20] MEDS: ACETAMINOPHEN 325 MG TAB PO PRN (08:11)
[2016-09-20] MEDS: SODIUM CHLORIDE 0.9% FLUSH 10 ML FLUSH IV FLUSH SCH ×2 (09:00→20:03)
--- NOTE | 2016-09-20 15:08 | HHI.IDPN ---
Subjective Subjective Remarks is a 51 y/o CF with PMHx of renal cancer s.p partial resection of left kidney, thyroid cancer s.p thyroidectomy, DM 2 on insulin and recurrent UTIs. 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 With this background patient presents to the hospital with nausea and vomiting as well as abdominal pain. The patient says that she ate a salad bar last night and shortly thereafter started to feel sick. She said she initially felt chills and then developed stomach pain along with nausea and vomiting. She says she has been vomiting all night and all day. The patient states her abdominal pain is a 9 out of 10 in severity. It is located at the center of her abdomen. She also describes low back pain which she attributes to possibly her kidneys. She also has pain in the back of her thighs. She says she does feel this way when her sugars get out of control sometimes. She denies any pain on urination this time although endorses a h/o recurrent UTIs and being on antibiotics. Last time she was on antibiotics was 3 months back for a UTI. She says she is currently visiting from [place]. She says she does tend to come to the hospital frequently secondary to her brittle diabetes. Sepsis workup initiated and blood cultures positive. ID consulted for evaluation and Mment of Sepsis, Gram negative bacteremia. Overnight events reviewed Fevers off and on No rash No diarrhea Antibiotics Cefepime IV Lines Line sites with no e/o infection Past Medical History Past Medical History Diabetes Degenerative disc disease Pancreatitis Recurrent UTIs Past Surgical History Left kidney cancer status post surgery Thyroid cancer status post thyroidectomy. Allergies: Coded Allergies: Sulfa (Verified Allergy, Severe, Hives, 09/18/16) Objective . Vital Signs Date Time Temp Pulse Resp B/P Pulse Ox O2 Delivery O2 Flow Rate FiO2 09/20/16 12:00 98.7 89 17 98/53 96 09/20/16 08:00 101.5 122 17 151/82 95 09/20/16 07:15 110 09/20/16 04:00 97.2 115 18 122/67 97 09/20/16 00:00 101.9 130 18 133/65 95 09/19/16 20:00 99.4 105 18 130/67 99 5/23/17 19:30 112 09/19/16 18:44 102 09/19/16 17:30 99.6 09/19/16 16:21 101.8 09/19/16 16:00 102.6 108 17 121/68 95 09/19/16 09/19/16 09/20/16 15:00 23:00 07:00 Intake Total 120 ml 2347 ml 1333 ml Output Total 200 ml 400 ml Balance 120 ml 2147 ml 933 ml Intake Oral 120 ml 240 ml 320 ml IV Total 2107 ml 1013 ml Output Urine Total 200 ml 400 ml # Voids 3 1 # Bowel Movements 0 0 0 . Laboratory Tests Test 09/18/16 09/19/16 09/20/16 17:45 04:03 03:45 White Blood Count 17.9 TH/MM3 15.5 TH/MM3 13.3 TH/MM3 Red Blood Count 3.93 MIL/MM3 3.78 MIL/MM3 3.19 MIL/MM3 Hemoglobin 11.9 GM/DL 11.7 GM/DL 9.6 GM/DL Hematocrit 36.3 % 35.4 % 29.8 % Mean Corpuscular Volume 92.5 FL 93.8 FL 93.5 FL Mean Corpuscular Hemoglobin 30.2 PG 31.1 PG 30.1 PG Mean Corpuscular Hemoglobin 32.7 % 33.2 % 32.2 % Concent Red Cell Distribution Width 12.8 % 13.2 % 13.3 % Platelet Count 220 TH/MM3 205 TH/MM3 163 TH/MM3 Mean Platelet Volume 8.6 FL 8.6 FL 8.5 FL Neutrophils (%) (Auto) 83.4 % 83.3 % 86.2 % Lymphocytes (%) (Auto) 8.3 % 6.5 % 3.3 % Monocytes (%) (Auto) 8.0 % 9.7 % 10.0 % Eosinophils (%) (Auto) 0.0 % 0.2 % 0.4 % Basophils (%) (Auto) 0.3 % 0.3 % 0.1 % Neutrophils # (Auto) 14.9 TH/MM3 12.9 TH/MM3 11.5 TH/MM3 Lymphocytes # (Auto) 1.5 TH/MM3 1.0 TH/MM3 0.4 TH/MM3 Monocytes # (Auto) 1.4 TH/MM3 1.5 TH/MM3 1.3 TH/MM3 Eosinophils # (Auto) 0.0 TH/MM3 0.0 TH/MM3 0.1 TH/MM3 Basophils # (Auto) 0.1 TH/MM3 0.0 TH/MM3 0.0 TH/MM3 CBC Comment DIFF FINAL AUTO DIFF DIFF FINAL Differential Comment AUTO DIFF CONFIRMED Laboratory Tests Test 09/18/16 09/19/16 09/19/16 09/20/16 17:45 04:03 13:41 03:45 Sodium Level 137 MEQ/L 137 MEQ/L 139 MEQ/L Potassium Level 4.3 MEQ/L 4.3 MEQ/L 3.7 MEQ/L Chloride Level 98 MEQ/L 103 MEQ/L 107 MEQ/L Carbon Dioxide Level 28.6 MEQ/L 22.7 MEQ/L 24.0 MEQ/L Anion Gap 10 MEQ/L 11 MEQ/L 8 MEQ/L Blood Urea Nitrogen 23 MG/DL 19 MG/DL 21 MG/DL Creatinine 1.34 MG/DL 1.23 MG/DL 1.38 MG/DL Estimat Glomerular Filtration 42 ML/MIN 46 ML/MIN 41 ML/MIN Rate Random Glucose 331 MG/DL 303 MG/DL 75 MG/DL Calcium Level 8.5 MG/DL 7.8 MG/DL 7.5 MG/DL Total Bilirubin 0.4 MG/DL 0.4 MG/DL 0.3 MG/DL Direct Bilirubin 0.1 MG/DL Indirect Bilirubin 0.3 MG/DL Aspartate Amino Transf 18 U/L 31 U/L 33 U/L (AST/SGOT) Alanine Aminotransferase 23 U/L 24 U/L 22 U/L (ALT/SGPT) Alkaline Phosphatase 87 U/L 100 U/L 82 U/L Total Protein 7.1 GM/DL 6.8 GM/DL 6.2 GM/DL Albumin 3.4 GM/DL 3.1 GM/DL 2.7 GM/DL Lipase 34 U/L 39 U/L Lactic Acid Level 1.2 mmol/L Microbiology Date/Time Procedure Status Source Growth 09/18/16 17:45 Aerobic Blood Culture - Preliminary Resulted Blood Peripheral Escherichia Coli 09/18/16 17:45 Anaerobic Blood Culture - Final Resulted Escherichia Coli 09/18/16 17:45 Urine Culture - Final Complete Urine Random Urine Escherichia Coli 09/18/16 18:15 Aerobic Blood Culture - Final Complete Blood Peripheral Escherichia Coli 09/18/16 18:15 Anaerobic Blood Culture - Final Complete Escherichia Coli 09/19/16 16:35 Aerobic Blood Culture - Preliminary Resulted Blood Peripheral NO GROWTH IN 1 DAY 09/19/16 16:35 Anaerobic Blood Culture - Preliminary Resulted Blood Peripheral NO GROWTH IN 1 DAY 09/19/16 16:42 Aerobic Blood Culture - Preliminary Resulted Blood Peripheral NO GROWTH IN 1 DAY 09/19/16 16:42 Anaerobic Blood Culture - Preliminary Resulted Blood Peripheral NO GROWTH IN 1 DAY Imaging Last Impressions Abdomen/Pelvis CT 09/19/16 0000 Signed Impressions: Service Date/Time: Monday, September 19, 2016 06:13 - CONCLUSION: Tiny pericardial effusion and chronic changes. Raza Grimm MD Chest X-Ray 09/18/16 1648 Signed Impressions: Service Date/Time: Sunday, September 18, 2016 17:03 - CONCLUSION: No acute disease. Jack Sung MD Physical Exam GENERAL: This is a well-nourished, well-developed patient, in no apparent distress. SKIN: No rashes, ecchymoses or lesions. Cool and dry. HEAD: Atraumatic. Normocephalic. No temporal or scalp tenderness. EYES: Pupils equal round and reactive. Extraocular motions intact. No scleral icterus. No injection or drainage. ENT: Nose without bleeding, purulent drainage or septal hematoma. Throat without erythema, tonsillar hypertrophy or exudate. Uvula midline. Airway patent. NECK: Trachea midline. Supple, nontender, no meningeal signs. CARDIOVASCULAR: RRR without murmur. RESPIRATORY: Clear to auscultation. Breath sounds equal bilaterally. No wheezes , rales, or rhonchi. GASTROINTESTINAL: Abdomen soft, non-tender, nondistended. ? CVA tenderness. MUSCULOSKELETAL: Extremities without clubbing, cyanosis, or edema. No joint tenderness, effusion, or edema noted. No calf tenderness. Negative Homans sign bilaterally. NEUROLOGICAL: Awake and alert. Grossly non focal Psych: cooperative IV line sites with no e/o infection. Assessment & Plan Remarks Sepsis present on admission E.coli bacteremia: likely source UTI, pyelonephritis. (Abd CT detailed report reveals ? stranding of kidneys) DM 2 uncontrolled. recurrent UTI by history, no renal stones. Recs: Continue Cefepime 2 gm IV q8hrs (Indication: E.coli bacteremia). Verigene testing with no resistance markers positive. Ok to continue Cefepime IV. Follow cultures susceptibility of blood cultures pending. In view of persistent fevers will check 2D ECHO to r/o endocarditis given her recurrent UTI history. If pain in back and legs as well as fevers persist will get MRI L spine to r/o epidural abscess Repeat blood cultures x 2 today. Follow clinically. If blood cultures positive only transient will likely DC on oral antibiotics if susceptible regimen can be formed. If persistent bacteremia will need endovascular workup and likely IV antibiotics. Will follow cultures to determine. Clinically stable at this point other than persistent fevers. d/w patient and plan for the day. Gianna Gibson MD September 20, 2016 15:08
--- NOTE | 2016-09-20 15:56 | HHI.PR ---
Subjective Remarks Pt states that she is starting to have back pain and is due for her medication. She tells me that the back pain seems different and radiates around her abdomen and down her thighs. She is currently having chills. no nausea or vomiting at this time discussed w RN, pt did spike a fever of 101.5 Objective Vitals Vital Signs Date Time Temp Pulse Resp B/P Pulse Ox O2 Delivery O2 Flow Rate FiO2 09/20/16 12:00 98.7 89 17 98/53 96 09/20/16 08:00 101.5 122 17 151/82 95 09/20/16 07:15 110 09/20/16 04:00 97.2 115 18 122/67 97 09/20/16 00:00 101.9 130 18 133/65 95 09/19/16 20:00 99.4 105 18 130/67 99 09/19/16 19:30 112 09/19/16 18:44 102 09/19/16 17:30 99.6 09/19/16 16:21 101.8 09/19/16 16:00 102.6 108 17 121/68 95 I/O 09/19/16 09/19/16 09/19/16 09/20/16 09/20/16 09/20/16 07:00 15:00 23:00 07:00 15:00 23:00 Intake Total 1165 ml 120 ml 2347 ml 1333 ml 240 ml Output Total 200 ml 400 ml 600 ml Balance 1165 ml 120 ml 2147 ml 933 ml -360 ml Intake Oral 480 ml 120 ml 240 ml 320 ml 240 ml IV Total 685 ml 2107 ml 1013 ml Output Urine Total 200 ml 400 ml 600 ml # Voids 2 3 1 # Bowel Movements 0 0 0 0 2 Result Diagram: 09/20/16 0345 09/20/16 0345 Imaging Last Impressions Abdomen/Pelvis CT 09/19/16 0000 Signed Impressions: Service Date/Time: Monday, September 19, 2016 06:13 - CONCLUSION: Tiny pericardial effusion and chronic changes. Raza Grimm MD Chest X-Ray 09/18/16 2198 Signed Impressions: Service Date/Time: Sunday, September 18, 2016 17:03 - CONCLUSION: No acute disease. Jack Sung MD Objective Remarks GENERAL: Well-appearing. Sitting up in bed. appears anxious. CARDIOVASCULAR: RRR but tachycardic. No murmurs. RESPIRATORY: Clear to auscultation. Breath sounds equal bilaterally. No wheezes. GASTROINTESTINAL: Abdomen soft, diffusely tender, nondistended. No guarding or rebound. MUSCULOSKELETAL: Extremities without edema. No joint tenderness, effusion, or edema noted. NEUROLOGICAL: Awake and alert. Moves extremities well. A/P Problem List: (1) DKA (diabetic ketoacidoses) ICD Code: E13.10 Status: Acute (2) Sepsis ICD Code: A41.9 Status: Acute (3) UTI (urinary tract infection) ICD Code: N39.0 Status: Acute (4) Renal insufficiency ICD Code: N28.9 Status: Acute (5) Tobacco abuse ICD Code: Z72.0 Status: Acute (6) Nausea & vomiting ICD Code: R11.2 Status: Acute Assessment and Plan Sepsis: tachycadia + fever + leukocytosis in setting of likely UTI. - s/p unasyn (09/19-) now on cefepime. S/p tx with rocephin x1 (09/18). - WBC trending down (13.3 today). spiked another fever of 101.5 this pm. I discussed the case w Dr. Gibson and she recommends repeating blood cx and getting a 2D Echo. Pt continues to complain of back pain which she does have a hx of off. Consider getting an MRI of lumbar spine in AM if persistent. - lactic acid 1.2 - blood cultures growing E. Coli, repeat blood cx neg x 1 day. Urine cx also growing E. Coli. repeat blood cx taken today. - on IVF at 150ml/hr - Check EKG DKA: The pt had a glucose of 331 on admission and a beta hydroxybutyric acid level of 1.89. Her anion gap was negative. She has been having nausea and vomiting. She received 10 units of insulin in the emergency department. - Advance diabetic diet. - Continue normal saline. - Medium sliding scale. Bedside glucose 350 this AM (serum 303). 12u insulin given. - on levemir 8unit HS. Monitor daily ss requirement and adjust, as needed. - Antiemetics as needed. Abdominal pain/ Nausea and vomiting: It seems that the patient developed symptoms following eating at a salad bar. Possibly secondary to gastroenteritis. The patient also has a history of pancreatitis. - LFTs and lipase level ~ WNL. Pt tells me that she does have a hx of pancreatitis. repeat lipase level. - IV fluids. - Advance as tolerated. - Pain control with roxicodone. IV morphine for breakthrough. - Antiemetics as needed. - PPI. Acute renal insufficiency: Improving. Creatinine 1.34 on admission, now 1.38. Likely prerenal secondary to above. - IV fluids and monitor creatinine. HTN: Likely secondary to nausea, vomiting and pain. Pressures now on the low end (MAP 60-70s). - Antiemetics and pain control as needed. - IV Vasotec as needed. Nicotine abuse: The patient smokes half a pack daily. - Cessation instruction. - Nicotine patch. PPx: SCDs. heparin Discharge Planning f/u blood cultures. EKG ordered due to tachycardia in the 130's. f/u may need MRI back if no improvement. Deborah Swartz MD September 20, 2016 15:56
[2016-09-20] MEDS ORDERED: SODIUM CHLORID 0.9% 500 ML INJ 500 ML IV ONE (16:00)
[2016-09-20] MEDS: PANTOPRAZOLE SODIUM 40 MG VIAL IV PUSH SCH (20:04)
[2016-09-20] MEDS: HEPARIN SODIUM - SQ 10,000 UNITS/ML VIAL SQ SCH (20:05)
[2016-09-20] MEDS: lamoTRIgine 100 MG TAB PO SCH (20:06)
[2016-09-20] MEDS: INSULIN DETEMIR 100 UNITS/ML VIAL SQ SCH (20:20)
[2016-09-20] MEDS: traZODone HCL 100 MG TAB PO SCH (20:31)
[2016-09-21] VITALS: BP 130/62; PULSE 109; RESP 20; TEMP 98.1; O2SAT 98
[2016-09-21] MEDS: MORPHINE SULFATE 4 MG/ML INJ IV PRN ×6 (00:30→23:33)
[2016-09-21] MEDS: CEFEPIME INJ 2,000 MG in SODIUM CHLORIDE 0.9% INJ 100 ML IV SCH ×3 (00:30→23:31)
[2016-09-21] MEDS: ONDANSETRON HCL 4 MG/2 ML VIAL IVP PRN ×2 (02:23→17:28)
[2016-09-21] MEDS: SODIUM CHLOR 0.9% 1000 ML INJ 1,000 ML IV SCH ×4 (03:36→16:04)
[2016-09-21 04:00] VITALS: BP 131/69; PULSE 114; RESP 20; TEMP 98.2; O2SAT 97
[2016-09-21] MEDS: LEVOTHYROXINE SODIUM 150 MCG TAB PO SCH (04:37)
[2016-09-21] MEDS: LEVOTHYROXINE SODIUM 25 MCG TAB PO SCH (04:37)
[2016-09-21] MEDS: INSULIN ASPART SUPPLEMENTAL SCALE SQ SCH ×4 (04:44→20:25)
[2016-09-21 05:37] LABS: AUTOMATED NEUTROPHIL # 7.8 TH/MM3 (1.8-7.7); BASOPHIL % 0.3 % (0.0-2.0); EOSINOPHIL # 0.1 TH/MM3 (0-0.4); EOSINOPHIL % 1.5 % (0.0-4.0); HEMATOCRIT 27.2 % (35.0-46.0); HEMO FLAGS DIFF FINAL; LYMPH % 11.3 % (9.0-44.0); LYMPHOCYTE # 1.1 TH/MM3 (1.0-4.8); MEAN CELL VOLUME 92.9 FL (80.0-100.0); MEAN CORPUSCULAR HEMOGLOBIN 30.6 PG (27.0-34.0); MEAN CORPUSCULAR HGB CONC 32.9 % (32.0-36.0); MONO % 8.8 % (0.0-8.0); NEUT % 78.1 % (16.0-70.0); PLATELET COUNT 130 TH/MM3 (150-450); RED BLOOD COUNT 2.93 MIL/MM3 (4.00-5.30); RED CELL DISTRIBUTION WIDTH 13.8 % (11.6-17.2); WHITE BLOOD COUNT 9.9 TH/MM3 (4.0-11.0)
[2016-09-21 06:08] LABS: BICARBONATE 23.7 MEQ/L (21.0-32.0); POTASSIUM 4.7 MEQ/L (3.5-5.1)
[2016-09-21 07:35] LABS: CALCIUM-PROTEIN CORRECTED 8.2 MG/DL (8.5-10.1)
[2016-09-21 08:00] VITALS: BP 149/71; PULSE 112; RESP 18; TEMP 98.1; O2SAT 97
[2016-09-21] MEDS: DOCUSATE SODIUM 100 MG CAP PO SCH ×2 (08:00→20:00)
[2016-09-21] MEDS: GABAPENTIN 100 MG CAP PO SCH ×3 (08:57→17:28)
[2016-09-21] MEDS: hydrOXYzine PAMOATE 25 MG CAP PO SCH ×2 (08:57→21:59)
[2016-09-21] MEDS: SODIUM CHLORIDE 0.9% FLUSH 10 ML FLUSH IV FLUSH SCH ×2 (08:58→21:00)
[2016-09-21] MEDS: HEPARIN SODIUM - SQ 10,000 UNITS/ML VIAL SQ SCH ×2 (08:58→22:00)
[2016-09-21] MEDS: NICOTINE 14 MG/24 HR PATCH T-DERMAL SCH (08:58)
[2016-09-21] MEDS: REMOVE OLD PATCH T-DERMAL SCH (08:58)
[2016-09-21] MEDS ORDERED: GADODIAMIDE PF 287 MG/ML 5 ML VIAL (for RAD MRI) IV ONE (10:33)
--- NOTE | 2016-09-21 10:48 | HHI.IDPN ---
Subjective Subjective Remarks is a 51 y/o CF with PMHx of renal cancer s.p partial resection of left kidney, thyroid cancer s.p thyroidectomy, DM 2 on insulin and recurrent UTIs. 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 With this background patient presents to the hospital with nausea and vomiting as well as abdominal pain. The patient says that she ate a salad bar last night and shortly thereafter started to feel sick. She said she initially felt chills and then developed stomach pain along with nausea and vomiting. She says she has been vomiting all night and all day. The patient states her abdominal pain is a 9 out of 10 in severity. It is located at the center of her abdomen. She also describes low back pain which she attributes to possibly her kidneys. She also has pain in the back of her thighs. She says she does feel this way when her sugars get out of control sometimes. She denies any pain on urination this time although endorses a h/o recurrent UTIs and being on antibiotics. Last time she was on antibiotics was 3 months back for a UTI. She says she is currently visiting from [place]. She says she does tend to come to the hospital frequently secondary to her brittle diabetes. Sepsis workup initiated and blood cultures positive. ID consulted for evaluation and Mment of Sepsis, Gram negative bacteremia. Overnight events reviewed Tmax 101.9 but defervescing. No rash No diarrhea Antibiotics Cefepime IV Lines Line sites with no e/o infection Past Medical History Past Medical History Diabetes Degenerative disc disease Pancreatitis Recurrent UTIs Past Surgical History Left kidney cancer status post surgery Thyroid cancer status post thyroidectomy. Allergies: Coded Allergies: Sulfa (Verified Allergy, Severe, Hives, 09/18/16) Objective . Vital Signs Date Time Temp Pulse Resp B/P Pulse Ox O2 Delivery O2 Flow Rate FiO2 09/21/16 08:00 98.1 112 18 149/71 97 09/21/16 04:00 98.2 114 20 131/69 97 09/21/16 00:00 98.1 109 20 130/62 98 09/20/16 20:00 99.5 116 20 155/77 98 09/20/16 16:00 100.8 128 17 165/70 95 09/20/16 12:00 98.7 89 17 98/53 96 09/20/16 09/20/16 09/21/16 15:00 23:00 07:00 Intake Total 1515 ml 1319 ml 240 ml Output Total 600 ml Balance 915 ml 1319 ml 240 ml Intake Oral 240 ml 360 ml 240 ml IV Total 1275 ml 959 ml Output Urine Total 600 ml # Voids 2 3 # Bowel Movements 2 2 1 . Laboratory Tests Test 09/20/16 09/21/16 03:45 03:51 White Blood Count 13.3 TH/MM3 9.9 TH/MM3 Red Blood Count 3.19 MIL/MM3 2.93 MIL/MM3 Hemoglobin 9.6 GM/DL 9.0 GM/DL Hematocrit 29.8 % 27.2 % Mean Corpuscular Volume 93.5 FL 92.9 FL Mean Corpuscular Hemoglobin 30.1 PG 30.6 PG Mean Corpuscular Hemoglobin 32.2 % 32.9 % Concent Red Cell Distribution Width 13.3 % 13.8 % Platelet Count 163 TH/MM3 130 TH/MM3 Mean Platelet Volume 8.5 FL 8.4 FL Neutrophils (%) (Auto) 86.2 % 78.1 % Lymphocytes (%) (Auto) 3.3 % 11.3 % Monocytes (%) (Auto) 10.0 % 8.8 % Eosinophils (%) (Auto) 0.4 % 1.5 % Basophils (%) (Auto) 0.1 % 0.3 % Neutrophils # (Auto) 11.5 TH/MM3 7.8 TH/MM3 Lymphocytes # (Auto) 0.4 TH/MM3 1.1 TH/MM3 Monocytes # (Auto) 1.3 TH/MM3 0.9 TH/MM3 Eosinophils # (Auto) 0.1 TH/MM3 0.1 TH/MM3 Basophils # (Auto) 0.0 TH/MM3 0.0 TH/MM3 CBC Comment DIFF FINAL DIFF FINAL Differential Comment Laboratory Tests Test 09/19/16 09/20/16 09/21/16 13:41 03:45 03:51 Lactic Acid Level 1.2 mmol/L Sodium Level 139 MEQ/L 141 MEQ/L Potassium Level 3.7 MEQ/L 4.7 MEQ/L Chloride Level 107 MEQ/L 112 MEQ/L Carbon Dioxide Level 24.0 MEQ/L 23.7 MEQ/L Anion Gap 8 MEQ/L 5 MEQ/L Blood Urea Nitrogen 21 MG/DL 20 MG/DL Creatinine 1.38 MG/DL 1.06 MG/DL Estimat Glomerular Filtration 41 ML/MIN 55 ML/MIN Rate Random Glucose 75 MG/DL 158 MG/DL Calcium Level 7.5 MG/DL 7.2 MG/DL Total Bilirubin 0.3 MG/DL Aspartate Amino Transf 33 U/L (AST/SGOT) Alanine Aminotransferase 22 U/L (ALT/SGPT) Alkaline Phosphatase 82 U/L Total Protein 6.2 GM/DL 5.3 GM/DL Albumin 2.7 GM/DL Lipase 40 U/L Protein Corrected Calcium 8.2 MG/DL Microbiology Date/Time Procedure Status Source Growth 09/18/16 17:45 Aerobic Blood Culture - Preliminary Resulted Blood Peripheral Escherichia Coli 09/18/16 17:45 Anaerobic Blood Culture - Final Resulted Escherichia Coli 09/18/16 17:45 Urine Culture - Final Complete Urine Random Urine Escherichia Coli 09/18/16 18:15 Aerobic Blood Culture - Final Complete Blood Peripheral Escherichia Coli 09/18/16 18:15 Anaerobic Blood Culture - Final Complete Escherichia Coli 09/19/16 16:35 Aerobic Blood Culture - Preliminary Resulted Blood Peripheral NO GROWTH IN 1 DAY 09/19/16 16:35 Anaerobic Blood Culture - Preliminary Resulted Blood Peripheral NO GROWTH IN 1 DAY 09/19/16 16:42 Aerobic Blood Culture - Preliminary Resulted Blood Peripheral NO GROWTH IN 1 DAY 09/19/16 16:42 Anaerobic Blood Culture - Preliminary Resulted Blood Peripheral NO GROWTH IN 1 DAY 09/20/16 21:00 Aerobic Blood Culture Received Blood Peripheral Pending 09/20/16 21:00 Anaerobic Blood Culture Received Blood Peripheral Pending 09/20/16 21:15 Aerobic Blood Culture Received Blood Peripheral Pending 09/20/16 21:15 Anaerobic Blood Culture Received Blood Peripheral Pending Imaging Last Impressions Abdomen/Pelvis CT 09/19/16 0000 Signed Impressions: Service Date/Time: Monday, September 19, 2016 06:13 - CONCLUSION: Tiny pericardial effusion and chronic changes. Raza Grimm MD Chest X-Ray 09/18/16 1648 Signed Impressions: Service Date/Time: Sunday, September 18, 2016 17:03 - CONCLUSION: No acute disease. Jack Sung MD Physical Exam GENERAL: This is a well-nourished, well-developed patient, in no apparent distress. SKIN: No rashes, ecchymoses or lesions. Cool and dry. HEAD: Atraumatic. Normocephalic. No temporal or scalp tenderness. EYES: Pupils equal round and reactive. Extraocular motions intact. No scleral icterus. No injection or drainage. ENT: Nose without bleeding, purulent drainage or septal hematoma. Throat without erythema, tonsillar hypertrophy or exudate. Uvula midline. Airway patent. NECK: Trachea midline. Supple, nontender, no meningeal signs. CARDIOVASCULAR: RRR without murmur. RESPIRATORY: Clear to auscultation. Breath sounds equal bilaterally. No wheezes , rales, or rhonchi. GASTROINTESTINAL: Abdomen soft, non-tender, nondistended. ? CVA tenderness. MUSCULOSKELETAL: Extremities without clubbing, cyanosis, or edema. No joint tenderness, effusion, or edema noted. No calf tenderness. Negative Homans sign bilaterally. NEUROLOGICAL: Awake and alert. Grossly non focal Psych: cooperative IV line sites with no e/o infection. Assessment & Plan Remarks Sepsis present on admission E.coli bacteremia: likely source UTI, pyelonephritis. (Abd CT detailed report reveals ? stranding of kidneys) DM 2 uncontrolled. recurrent UTI by history, no renal stones. Recs: Continue Cefepime 2 gm IV q8hrs (Indication: E.coli bacteremia). Will deescalate once susceptibility on blood cultures back. Verigene testing with no resistance markers positive. Ok to continue Cefepime IV. Follow cultures susceptibility of blood cultures pending. In view of persistent fevers will check 2D ECHO to r/o endocarditis given her recurrent UTI history. Check MRI L spine to r/o epidural abscess Follow clinically. If blood cultures positive only transient will likely DC on oral antibiotics if susceptible regimen can be formed. If persistent bacteremia will need endovascular workup and likely IV antibiotics. Will follow cultures to determine. Clinically stable at this point other than persistent fevers. d/w patient I will be OOT from 09/22/16 to 09/27/2016. Other ID MDs covering for me. Please call center. Gianna Gibson MD September 21, 2016 10:48
--- NOTE | 2016-09-21 10:50 | RADRPT ---
EXAM DATE/TIME: 09/21/2016 09:54 [facility] COMPARISON: No previous studies available for comparison. INDICATIONS : Abscess. Lower back pain. CONTRAST: 14 cc Omniscan (gadodiamide) IV MEDICAL HISTORY : Hypertension. Diabetes mellitus type 2. Carcinoma, thyroid. Carcinoma, renal. SURGICAL HISTORY : Thyroidectomy. ENCOUNTER: Subsequent ACUITY: > 1 year PAIN SCORE: 3/10 LOCATION: Lower back. TECHNIQUE: Multiplanar multisequence MRI of the lumbar spine was performed with and without contrast. FINDINGS: The most caudal appearing lumbar vertebra is numbered as L5. T12-L1: The thecal sac has a normal diameter. No evidence of disc bulge or protrusion. The neural foramina are patent bilaterally. L1-L2: The thecal sac has a normal diameter. No evidence of disc bulge or protrusion. The neural foramina are patent bilaterally. L2-L3: The thecal sac has a normal diameter. A mild disc bulge without stenosis. L3-L4: There is a moderate-sized broad-based disc protrusion, worse on the right side with a mild central ca nal stenosis and moderate to severe right-sided lateral recess stenosis. There is mild foraminal sten osis bilaterally. L4-L5: There is advanced degenerative disc disease at this level with marked narrowing of the disc space and vacuum phenomenon. There are endplate marrow changes on both sides of the disc interspace that demon strates mild enhancement postcontrast. The degree of enhancement is less than would be expected with a discitis or osteomyelitis. There is a broad-based posterior disc protrusion and osteophytic ridging that results in a moderate stenosis predominantly at the lateral recesses and mild bilateral foramin al stenosis. L5-S1: The thecal sac has a normal diameter. Disc bulge without significant stenosis. CONCLUSION: 1. At L4-5 there is focally advanced degenerative disc disease with endplate marrow changes, marked d isc space narrowing and mild enhancement on both sides of the disc interspace post contrast. There is a moderate-sized disc protrusion that results in a moderate stenosis of the lateral recesses. The de gree of enhancement is less than would be expected with a discitis or osteomyelitis. No evidence for epidural abscess. No acute fracture or spondylolisthesis. 2. At L3-4 there is a moderate-sized broad-based disc protrusion, right worse than left resulting in a right-sided lateral recess stenosis and mild left lateral recess stenosis. Nestor Rodriguez MD on September 21, 2016 at 10:39 Board Certified Radiologist. This report was verified electronically.
--- NOTE | 2016-09-21 11:53 | EC ---
Study Study Date:09/21/2016 STUDY CONCLUSIONS SUMMARY - Left ventricle: The cavity size was normal. Wall thickness was normal. Systolic function was normal. The estimated ejection fraction was in the range of 55% to 60%. Wall motion was normal; there were no regional wall motion abnormalities. - Pericardium, extracardiac: A trivial pericardial effusion was identified. If LV function is below 40, please consider prescribing an ACEI or ARB or document rationale for non-use. PROCEDURE DATA STUDY STATUS: Elective. Procedure: Transthoracic echocardiography. Image quality was good. Scanning was performed from the parasternal, apical, and subcostal acoustic windows. Study completion: The patient tolerated the procedure well. Transthoracic echocardiography. M-mode, complete 2D, complete spectral Doppler, and color Doppler. Patient status: Inpatient. CARDIAC ANATOMY LEFT VENTRICLE: The cavity size was normal. Wall thickness was normal. Systolic function was normal. The estimated ejection fraction was in the range of 55% to 60%. Wall motion was normal; there were no regional wall motion abnormalities. AORTIC VALVE: Trileaflet; normal thickness leaflets. Doppler: Transvalvular velocity was within the normal range. There was no stenosis. No regurgitation. AORTA: Aortic root: The aortic root was normal in size. MITRAL VALVE: Mildly thickened, mildly calcified leaflets, . Doppler: Transvalvular velocity was within the normal range. There was no evidence for stenosis. No regurgitation. LEFT ATRIUM: The atrium was normal in size. RIGHT VENTRICLE: The cavity size was normal. Wall thickness was normal. PULMONIC VALVE: Doppler: Transvalvular velocity was within the normal range. There was no evidence for stenosis. No regurgitation. TRICUSPID VALVE: Structurally normal valve. Doppler: Transvalvular velocity was within the normal range. No regurgitation. PULMONARY ARTERY: The main pulmonary artery was normal-sized. Systolic pressure was within the normal range. RIGHT ATRIUM: The atrium was normal in size. PERICARDIUM: A trivial pericardial effusion was identified. SYSTEMIC VEINS: Inferior vena cava: The vessel was normal in size. Prepared and signed by Telly Arriaza [id number]
[2016-09-21 12:00] VITALS: BP 135/87; PULSE 112; RESP 18; TEMP 98.7; O2SAT 97
--- NOTE | 2016-09-21 12:02 | HHI.PR ---
Subjective Remarks Feeling better today. States that the increase in trazodone dose helped her a lot. Denies any chest pain, shortness of breath, nausea or vomiting. Objective Vitals Vital Signs Date Time Temp Pulse Resp B/P Pulse Ox O2 Delivery O2 Flow Rate FiO2 09/21/16 08:00 98.1 112 18 149/71 97 09/21/16 04:00 98.2 114 20 131/69 97 09/21/16 00:00 98.1 109 20 130/62 98 09/20/16 20:00 99.5 116 20 155/77 98 09/20/16 16:00 100.8 128 17 165/70 95 I/O 09/20/16 09/20/16 09/20/16 09/21/16 09/21/16 09/21/16 07:00 15:00 23:00 07:00 15:00 23:00 Intake Total 1333 ml 1515 ml 1319 ml 240 ml Output Total 400 ml 600 ml Balance 933 ml 915 ml 1319 ml 240 ml Intake Oral 320 ml 240 ml 360 ml 240 ml IV Total 1013 ml 1275 ml 959 ml Output Urine Total 400 ml 600 ml # Voids 2 3 # Bowel Movements 0 2 2 1 Result Diagram: 09/21/16 0351 09/21/16 0351 Imaging Last Impressions Lumbar Spine MRI 09/21/16 0000 Signed Impressions: Service Date/Time: August 09:54 - CONCLUSION: 1. At L4-5 there is focally advanced degenerative disc disease with endplate marrow changes, marked disc space narrowing and mild enhancement on both sides of the disc interspace post contrast. There is a moderate-sized disc protrusion that results in a moderate stenosis of the lateral recesses. The degree of enhancement is less than would be expected with a discitis or osteomyelitis. No evidence for epidural abscess. No acute fracture or spondylolisthesis. 2. At L3-4 there is a moderate-sized broad-based disc protrusion, right worse than left resulting in a right-sided lateral recess stenosis and mild left lateral recess stenosis. Nestor Rodriguez MD Abdomen/Pelvis CT 09/19/16 0000 Signed Impressions: Service Date/Time: Monday, September 19, 2016 06:13 - CONCLUSION: Tiny pericardial effusion and chronic changes. Raza Grimm MD Chest X-Ray 09/18/16 0858 Signed Impressions: Service Date/Time: Sunday, September 18, 2016 17:03 - CONCLUSION: No acute disease. Jack Sung MD Objective Remarks GENERAL: Well-appearing. Sitting up in bed. appears less anxious today CARDIOVASCULAR: RRR but mildly tachycardic. No murmurs. RESPIRATORY: Clear to auscultation. Breath sounds equal bilaterally. No wheezes. GASTROINTESTINAL: Abdomen soft, nondistended. No guarding or rebound. MUSCULOSKELETAL: Extremities without edema. No joint tenderness, effusion, or edema noted. NEUROLOGICAL: Awake and alert. Moves extremities well. A/P Problem List: (1) DKA (diabetic ketoacidoses) ICD Code: E13.10 Status: Acute (2) Sepsis ICD Code: A41.9 Status: Acute (3) UTI (urinary tract infection) ICD Code: N39.0 Status: Acute (4) Renal insufficiency ICD Code: N28.9 Status: Acute (5) Tobacco abuse ICD Code: Z72.0 Status: Acute (6) Nausea & vomiting ICD Code: R11.2 Status: Acute Assessment and Plan Sepsis: tachycadia + fever + leukocytosis in setting of likely UTI. - s/p unasyn (09/19-) now on cefepime. S/p tx with rocephin x1 (09/18). - WBC trending down (9.9 today). Afebrile thus far. Repeating blood cx 09/20/16 negative 1 day, previous blood cultures 09/19/16 negative to date. 2D Echo done , report pending. Lumbar MRI did not show any epidural abscess or discitis or osteomyelitis. - lactic acid 1.2 - Initial blood cultures and urine cultures growing Escherichia coli. - on IVF at 150ml/hr - Check EKG DKA: The pt had a glucose of 331 on admission and a beta hydroxybutyric acid level of 1.89. Her anion gap was negative. She has been having nausea and vomiting. She received 10 units of insulin in the emergency department. - Tolerating a diabetic diet. - Continue normal saline. - Medium sliding scale. - on levemir 8unit HS. Monitor daily ss requirement and adjust, as needed. - Antiemetics as needed. Abdominal pain/ Nausea and vomiting: It seems that the patient developed symptoms following eating at a salad bar. Possibly secondary to gastroenteritis. The patient also has a history of pancreatitis. - LFTs and lipase level ~ WNL. - IV fluids. - Advance as tolerated. - Pain control with roxicodone. IV morphine for breakthrough. - Antiemetics as needed. - PPI. Acute renal insufficiency: Improving. Creatinine 1.34 on admission, now 1.06. Likely prerenal secondary to above. - IV fluids and monitor creatinine. HTN: Likely secondary to nausea, vomiting and pain. Pressures now on the low end (MAP 60-70s). - Antiemetics and pain control as needed. - IV Vasotec as needed. Nicotine abuse: The patient smokes half a pack daily. - Cessation instruction. - Nicotine patch. PPx: SCDs. heparin Discharge Planning Follow blood culture results. Awaiting final Recs from infectious disease. Deborah Swartz MD September 21, 2016 12:02
[2016-09-21] MEDS ORDERED: EFFE150C PO (14:38)
[2016-09-21 16:00] VITALS: BP 169/79; PULSE 116; RESP 18; TEMP 99.3; O2SAT 96
--- NOTE | 2016-09-21 17:29 | EKG ---
Date Performed: 09/20/2016 Time Performed: 16:03:03 PTAGE: 51 years EKG: SINUS TACHYCARDIA LOW QRS VOLTAGE IN EXTREMITY LEADS ABNORMAL RHYTHM ECG PREVIOUS TRACING : 09/19/2016 11.26 Compared to prior tracing no significant change DOCTOR: Terrell Chester Interpretating Date/Time 09/21/2016 17:28:08
[2016-09-21 20:00] VITALS: BP 151/72; PULSE 125; RESP 20; TEMP 100.2; O2SAT 97
[2016-09-21] MEDS: PANTOPRAZOLE SODIUM 40 MG VIAL IV PUSH SCH (20:26)
[2016-09-21] MEDS: INSULIN DETEMIR 100 UNITS/ML VIAL SQ SCH (20:26)
[2016-09-21] MEDS: lamoTRIgine 100 MG TAB PO SCH (21:59)
[2016-09-21] MEDS: traZODone HCL 100 MG TAB PO SCH (21:59)
[2016-09-21] MEDS: ACETAMINOPHEN 325 MG TAB PO PRN (23:49)
[2016-09-22] VITALS (7 sets, daily range): BP systolic 102–169; BP diastolic 65–80; PULSE 55–128; RESP 18–22; TEMP 97–100.9; O2SAT 93–96
[2016-09-22 04:48] LABS: HEMATOCRIT 25.3 % (35.0-46.0); MEAN CELL VOLUME 92.7 FL (80.0-100.0); MEAN CORPUSCULAR HEMOGLOBIN 31.2 PG (27.0-34.0); MEAN CORPUSCULAR HGB CONC 33.7 % (32.0-36.0); PLATELET COUNT 137 TH/MM3 (150-450); RED BLOOD COUNT 2.73 MIL/MM3 (4.00-5.30); RED CELL DISTRIBUTION WIDTH 13.8 % (11.6-17.2); WHITE BLOOD COUNT 8.4 TH/MM3 (4.0-11.0)
[2016-09-22 04:54] LABS: HEMO FLAGS AUTO DIFF
[2016-09-22 05:10] LABS: BICARBONATE 24.6 MEQ/L (21.0-32.0); POTASSIUM 3.9 MEQ/L (3.5-5.1)
[2016-09-22 05:29] LABS: CALCIUM-PROTEIN CORRECTED 8.2 MG/DL (8.5-10.1)
[2016-09-22] MEDS: LEVOTHYROXINE SODIUM 25 MCG TAB PO SCH (05:34)
[2016-09-22] MEDS: LEVOTHYROXINE SODIUM 150 MCG TAB PO SCH (05:34)
[2016-09-22] MEDS: MORPHINE SULFATE 4 MG/ML INJ IV PRN ×4 (05:40→20:08)
[2016-09-22] MEDS: SODIUM CHLOR 0.9% 1000 ML INJ 1,000 ML IV SCH ×4 (05:40→16:44)
[2016-09-22] MEDS: INSULIN ASPART SUPPLEMENTAL SCALE SQ SCH ×4 (05:44→21:04)
[2016-09-22 08:25] LABS: BANDS 13 % (0-6); EOSINOPHILS 2 % (0-4); NEUTROPHIL # MANUAL DIFF 6.5 TH/MM3 (1.8-7.7); PLATELET ESTIMATE SMEAR LOW (NORMAL); PLATELET MORPHOLOGY NORMAL (NORMAL); POLYS (SEG NEUTROPHILS) 64 % (16-70); WBC DIFF SAMPLE 100
[2016-09-22 08:26] LABS: SCAN/DIFF FINAL DIFF MANUAL
[2016-09-22] MEDS: SODIUM CHLORIDE 0.9% FLUSH 10 ML FLUSH IV FLUSH SCH ×2 (09:00→20:07)
[2016-09-22] MEDS: REMOVE OLD PATCH T-DERMAL SCH (09:00)
[2016-09-22] MEDS: NICOTINE 14 MG/24 HR PATCH T-DERMAL SCH (09:46)
[2016-09-22] MEDS: hydrOXYzine PAMOATE 25 MG CAP PO SCH ×2 (09:48→22:58)
[2016-09-22] MEDS: DOCUSATE SODIUM 100 MG CAP PO SCH ×2 (09:48→20:07)
[2016-09-22] MEDS: GABAPENTIN 100 MG CAP PO SCH ×3 (09:48→16:33)
[2016-09-22] MEDS: HEPARIN SODIUM - SQ 10,000 UNITS/ML VIAL SQ SCH ×2 (09:48→22:58)
[2016-09-22] MEDS: VENLAFAXINE HCL XR 75 MG CAP PO SCH (09:48)
[2016-09-22] MEDS: ONDANSETRON HCL 4 MG/2 ML VIAL IVP PRN ×2 (11:10→18:41)
--- NOTE | 2016-09-22 13:03 | HHI.IDPN ---
Subjective Subjective Remarks is a 51 y/o CF with PMHx of renal cancer s.p partial resection of left kidney, thyroid cancer s.p thyroidectomy, DM 2 on insulin and recurrent UTIs. 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 With this background patient presents to the hospital with nausea and vomiting as well as abdominal pain. The patient says that she ate a salad bar last night and shortly thereafter started to feel sick. She said she initially felt chills and then developed stomach pain along with nausea and vomiting. She says she has been vomiting all night and all day. The patient states her abdominal pain is a 9 out of 10 in severity. It is located at the center of her abdomen. She also describes low back pain which she attributes to possibly her kidneys. She also has pain in the back of her thighs. She says she does feel this way when her sugars get out of control sometimes. She denies any pain on urination this time although endorses a h/o recurrent UTIs and being on antibiotics. Last time she was on antibiotics was 3 months back for a UTI. She says she is currently visiting from [place]. She says she does tend to come to the hospital frequently secondary to her brittle diabetes. Sepsis workup initiated and blood cultures positive. ID consulted for evaluation and Mment of Sepsis, Gram negative bacteremia. Notes reviewed Low grade temps overnight Had one episode of nausea Still C/O R sided abdominal pain Back pain same MRi spine noted No new (+) BC E coli in UC and BC pansensitive CT A/P noted Voiding ok No diarrhea No rash ot itching Antibiotics Cefepime IV Lines Line sites with no e/o infection Past Medical History Past Medical History Diabetes Degenerative disc disease Pancreatitis Recurrent UTIs Past Surgical History Left kidney cancer status post surgery Thyroid cancer status post thyroidectomy. Allergies: Coded Allergies: Sulfa (Verified Allergy, Severe, Hives, 09/18/16) Objective . Vital Signs Date Time Temp Pulse Resp B/P Pulse Ox O2 Delivery O2 Flow Rate FiO2 09/22/16 12:00 99.0 128 19 163/75 94 09/22/16 08:00 99.4 113 18 141/77 96 09/22/16 04:00 97.4 124 20 148/72 96 09/22/16 00:00 100.9 96 20 102/67 95 09/21/16 20:00 100.2 125 20 151/72 97 09/21/16 16:00 99.3 116 18 169/79 96 09/21/16 09/21/16 09/22/16 15:00 23:00 07:00 Intake Total 720 ml 1077 ml 1206 ml Balance 720 ml 1077 ml 1206 ml Intake Oral 720 ml 240 ml 120 ml IV Total 837 ml 1086 ml # Voids 5 1 2 # Bowel Movements 1 0 0 . Laboratory Tests Test 09/21/16 09/22/16 03:51 03:40 White Blood Count 9.9 TH/MM3 8.4 TH/MM3 Red Blood Count 2.93 MIL/MM3 2.73 MIL/MM3 Hemoglobin 9.0 GM/DL 8.5 GM/DL Hematocrit 27.2 % 25.3 % Mean Corpuscular Volume 92.9 FL 92.7 FL Mean Corpuscular Hemoglobin 30.6 PG 31.2 PG Mean Corpuscular Hemoglobin 32.9 % 33.7 % Concent Red Cell Distribution Width 13.8 % 13.8 % Platelet Count 130 TH/MM3 137 TH/MM3 Mean Platelet Volume 8.4 FL 8.2 FL Neutrophils (%) (Auto) 78.1 % % Lymphocytes (%) (Auto) 11.3 % % Monocytes (%) (Auto) 8.8 % % Eosinophils (%) (Auto) 1.5 % % Basophils (%) (Auto) 0.3 % % Neutrophils # (Auto) 7.8 TH/MM3 TH/MM3 Lymphocytes # (Auto) 1.1 TH/MM3 TH/MM3 Monocytes # (Auto) 0.9 TH/MM3 TH/MM3 Eosinophils # (Auto) 0.1 TH/MM3 TH/MM3 Basophils # (Auto) 0.0 TH/MM3 TH/MM3 CBC Comment DIFF FINAL AUTO DIFF Differential Comment FINAL DIFF MANUAL Differential Total Cells 100 Counted Neutrophils % (Manual) 64 % Band Neutrophils % 13 % Lymphocytes % 14 % Monocytes % 7 % Eosinophils % 2 % Neutrophils # (Manual) 6.5 TH/MM3 Platelet Estimate LOW Platelet Morphology Comment NORMAL Laboratory Tests Test 09/21/16 09/22/16 03:51 03:40 Sodium Level 141 MEQ/L 141 MEQ/L Potassium Level 4.7 MEQ/L 3.9 MEQ/L Chloride Level 112 MEQ/L 110 MEQ/L Carbon Dioxide Level 23.7 MEQ/L 24.6 MEQ/L Anion Gap 5 MEQ/L 6 MEQ/L Blood Urea Nitrogen 20 MG/DL 11 MG/DL Creatinine 1.06 MG/DL 1.03 MG/DL Estimat Glomerular Filtration 55 ML/MIN 57 ML/MIN Rate Random Glucose 158 MG/DL 188 MG/DL Calcium Level 7.2 MG/DL 7.2 MG/DL Protein Corrected Calcium 8.2 MG/DL 8.2 MG/DL Total Protein 5.3 GM/DL 5.2 GM/DL Microbiology Date/Time Procedure Status Source Growth 09/19/16 16:35 Aerobic Blood Culture - Preliminary Resulted Blood Peripheral NO GROWTH IN 3 DAYS 09/19/16 16:35 Anaerobic Blood Culture - Preliminary Resulted Blood Peripheral NO GROWTH IN 3 DAYS 09/19/16 16:42 Aerobic Blood Culture - Preliminary Resulted Blood Peripheral NO GROWTH IN 3 DAYS 09/19/16 16:42 Anaerobic Blood Culture - Preliminary Resulted Blood Peripheral NO GROWTH IN 3 DAYS 09/20/16 21:00 Aerobic Blood Culture - Preliminary Resulted Blood Peripheral NO GROWTH IN 2 DAYS 09/20/16 21:00 Anaerobic Blood Culture - Preliminary Resulted Blood Peripheral NO GROWTH IN 2 DAYS 09/20/16 21:15 Aerobic Blood Culture - Preliminary Resulted Blood Peripheral NO GROWTH IN 2 DAYS 09/20/16 21:15 Anaerobic Blood Culture - Preliminary Resulted Blood Peripheral NO GROWTH IN 2 DAYS Imaging Last Impressions Abdomen/Pelvis CT 09/19/16 0000 Signed Impressions: Service Date/Time: Monday, September 19, 2016 06:13 - CONCLUSION: Tiny pericardial effusion and chronic changes. K. Scott Grimm MD Chest X-Ray 09/18/16 1648 Signed Impressions: Service Date/Time: Sunday, September 18, 2016 17:03 - CONCLUSION: No acute disease. Jack Sung MD Physical Exam GENERAL: [place] and alert, NAD SKIN: No rashes, ecchymoses or lesions. Cool and dry. HEAD: Atraumatic. Normocephalic. No temporal or scalp tenderness. EYES: Pupils equal round and reactive. Extraocular motions intact. No scleral icterus. No injection or drainage. ENT: Nose without bleeding, purulent drainage or septal hematoma. Throat without erythema, tonsillar hypertrophy or exudate. Uvula midline. Airway patent. NECK: Trachea midline. Supple, nontender, no meningeal signs. CARDIOVASCULAR: RRR without murmur. RESPIRATORY: Clear to auscultation. Breath sounds equal bilaterally. No wheezes , rales, or rhonchi. GASTROINTESTINAL: Abdomen soft, (+) BS, tender on R side, no guarding or rebound MUSCULOSKELETAL: Extremities without clubbing, cyanosis, or edema. No joint tenderness, effusion, or edema noted. No calf tenderness. Negative Homans sign bilaterally. NEUROLOGICAL: Awake and alert. Grossly non focal Psych: cooperative IV line sites with no e/o infection. Assessment & Plan Remarks Sepsis present on admission E.coli bacteremia: likely source UTI, pyelonephritis. (Abd CT detailed report reveals ? stranding of kidneys) DM 2 uncontrolled. recurrent UTI by history, no renal stones. Recs: Change Cefepime to Levaquin and give x 14 days Repeat UA If temps less than 100 x 24 hours, and UA improving, should be able to D/C this weekend and complete course of Levaquin Dr Nicole is available this weekend if there are any questions. Otherwise, MARTÍN JORDAN will be available Mary Grace MD September 22, 2016 13:03
[2016-09-22] MEDS: LEVOFLOXACIN 750 MG TAB PO SCH (13:47)
--- NOTE | 2016-09-22 17:02 | HHI.PR ---
Subjective Remarks Pt states she has been feeling nauseous and vomited twice. She is not ready to be discharge and tells me that she cannot go like this. denies any chest pain, SOB Family members at bedside and also not comfortable taking pt home yet Objective Vitals Vital Signs Date Time Temp Pulse Resp B/P Pulse Ox O2 Delivery O2 Flow Rate FiO2 09/22/16 16:00 99.1 115 19 169/79 93 09/22/16 12:00 99.0 128 19 163/75 94 09/22/16 08:00 99.4 113 18 141/77 96 09/22/16 04:00 97.4 124 20 148/72 96 09/22/16 00:00 100.9 96 20 102/67 95 09/21/16 20:00 100.2 125 20 151/72 97 I/O 09/21/16 09/21/16 09/21/16 09/22/16 09/22/16 09/22/16 07:00 15:00 23:00 07:00 15:00 23:00 Intake Total 240 ml 720 ml 1077 ml 1206 ml 1416 ml Balance 240 ml 720 ml 1077 ml 1206 ml 1416 ml Intake Oral 240 ml 720 ml 240 ml 120 ml 120 ml IV Total 837 ml 1086 ml 1296 ml # Voids 3 5 1 2 4 # Bowel Movements 1 1 0 0 1 Result Diagram: 09/22/16 0340 09/22/16 0340 Imaging Last Impressions Lumbar Spine MRI 09/21/16 0000 Signed Impressions: Service Date/Time: August 09:54 - CONCLUSION: 1. At L4-5 there is focally advanced degenerative disc disease with endplate marrow changes, marked disc space narrowing and mild enhancement on both sides of the disc interspace post contrast. There is a moderate-sized disc protrusion that results in a moderate stenosis of the lateral recesses. The degree of enhancement is less than would be expected with a discitis or osteomyelitis. No evidence for epidural abscess. No acute fracture or spondylolisthesis. 2. At L3-4 there is a moderate-sized broad-based disc protrusion, right worse than left resulting in a right-sided lateral recess stenosis and mild left lateral recess stenosis. Nestor Rodriguez MD Abdomen/Pelvis CT 09/19/16 0000 Signed Impressions: Service Date/Time: Monday, September 19, 2016 06:13 - CONCLUSION: Tiny pericardial effusion and chronic changes. Raza Grimm MD Chest X-Ray 09/18/16 1648 Signed Impressions: Service Date/Time: Sunday, September 18, 2016 17:03 - CONCLUSION: No acute disease. Jack Sung MD Objective Remarks GENERAL: Well-appearing. Sitting up in bed. appears somewhat anxious today CARDIOVASCULAR: RRR but mildly tachycardic. No murmurs. RESPIRATORY: Clear to auscultation. Breath sounds equal bilaterally. No wheezes. GASTROINTESTINAL: Abdomen soft, nondistended. No guarding or rebound. MUSCULOSKELETAL: Extremities without edema. No joint tenderness, effusion, or edema noted. NEUROLOGICAL: Awake and alert. Moves extremities well. A/P Problem List: (1) DKA (diabetic ketoacidoses) ICD Code: E13.10 Status: Acute (2) Sepsis ICD Code: A41.9 Status: Acute (3) UTI (urinary tract infection) ICD Code: N39.0 Status: Acute (4) Renal insufficiency ICD Code: N28.9 Status: Acute (5) Tobacco abuse ICD Code: Z72.0 Status: Acute (6) Nausea & vomiting ICD Code: R11.2 Status: Acute Assessment and Plan Sepsis: tachycadia + fever + leukocytosis in setting of likely UTI. - s/p unasyn (09/19-) now on cefepime. S/p tx with rocephin x1 (09/18). - WBC trending down (8.4 today). Tmax 100.9 overnight. Afebrile thus far. Repeating blood cx 09/20/16 and 09/19/16 no growth to date, 2D Echo done EF 55-60 %. Lumbar MRI did not show any epidural abscess or discitis or osteomyelitis. - lactic acid 1.2 - Initial blood cultures and urine cultures growing Escherichia coli. - on IVF, HLIV, encourage po hydration. per ID abx switched to Levaquin and give x 14 days Repeat UA If temps less than 100 x 24 hours, and UA improving, should be able to D/C this weekend and complete course of Levaquin added propranolol to help w anxiety DKA: The pt had a glucose of 331 on admission and a beta hydroxybutyric acid level of 1.89. Her anion gap was negative. She has been having nausea and vomiting. She received 10 units of insulin in the emergency department. - Tolerating a diabetic diet. - Continue normal saline. - Medium sliding scale. - increased levemir to 10unit HS. Monitor daily ss requirement and adjust, as needed. - Antiemetics as needed. Abdominal pain/ Nausea and vomiting: It seems that the patient developed symptoms following eating at a salad bar. Possibly secondary to gastroenteritis. The patient also has a history of pancreatitis. - LFTs and lipase level ~ WNL. - IV fluids. - Advance as tolerated. - Pain control with roxicodone. IV morphine for breakthrough. - Antiemetics as needed. - PPI. Acute renal insufficiency: Improving. Creatinine 1.34 on admission, now 1.03. Likely prerenal secondary to above. -s/p IV fluids, encourage po hydration HTN: Likely secondary to nausea, vomiting and pain. Pressures now on the low end (MAP 60-70s). - Antiemetics and pain control as needed. - IV Vasotec as needed. Nicotine abuse: The patient smokes half a pack daily. - Cessation instruction. - Nicotine patch. PPx: SCDs. heparin Discharge Planning Levaquin and give x 14 days Repeat UA, f/u results If temps less than 100 x 24 hours, and UA improving, should be able to D/C this weekend and complete course of Levaquin Problem Qualifiers (1) DKA (diabetic ketoacidoses): Qualified Code: E10.10 - Diabetic ketoacidosis without coma associated with type 1 diabetes mellitus (2) UTI (urinary tract infection): Qualified Code: N39.0 - Urinary tract infection without hematuria, site unspecified (3) Nausea & vomiting: Qualified Code: R11.2 - Intractable vomiting with nausea, unspecified vomiting type Deborah Swartz MD September 22, 2016 17:02
[2016-09-22] MEDS: PROPRANOLOL HCL 10 MG TAB PO SCH ×2 (18:42→22:58)
[2016-09-22] MEDS: PANTOPRAZOLE SODIUM 40 MG VIAL IV PUSH SCH (20:07)
[2016-09-22] MEDS: INSULIN DETEMIR 100 UNITS/ML VIAL SQ SCH (20:59)
[2016-09-22] MEDS: traZODone HCL 100 MG TAB PO SCH (22:57)
[2016-09-22] MEDS: lamoTRIgine 100 MG TAB PO SCH (22:57)
[2016-09-23] VITALS (7 sets, daily range): BP systolic 101–144; BP diastolic 50–78; PULSE 89–114; RESP 18–22; TEMP 97.1–99.1; O2SAT 90–94
[2016-09-23] MEDS: MORPHINE SULFATE 4 MG/ML INJ IV PRN ×4 (01:45→20:48)
[2016-09-23] MEDS: ONDANSETRON HCL 4 MG/2 ML VIAL IVP PRN ×4 (01:46→21:31)
[2016-09-23] MEDS: INSULIN ASPART SUPPLEMENTAL SCALE SQ SCH ×4 (05:49→20:47)
[2016-09-23] MEDS: LEVOTHYROXINE SODIUM 25 MCG TAB PO SCH (05:49)
[2016-09-23] MEDS: LEVOTHYROXINE SODIUM 150 MCG TAB PO SCH (05:49)
[2016-09-23] MEDS: PROPRANOLOL HCL 10 MG TAB PO SCH ×3 (05:49→20:47)
[2016-09-23 05:50] LABS: AUTOMATED NEUTROPHIL # 7.1 TH/MM3 (1.8-7.7); BASOPHIL # 0.1 TH/MM3 (0-0.2); BASOPHIL % 0.6 % (0.0-2.0); EOSINOPHIL # 0.1 TH/MM3 (0-0.4); EOSINOPHIL % 0.6 % (0.0-4.0); HEMATOCRIT 26.2 % (35.0-46.0); HEMO FLAGS DIFF FINAL; LYMPH % 9.7 % (9.0-44.0); LYMPHOCYTE # 0.9 TH/MM3 (1.0-4.8); MEAN CELL VOLUME 92.3 FL (80.0-100.0); MEAN CORPUSCULAR HEMOGLOBIN 30.3 PG (27.0-34.0); MEAN CORPUSCULAR HGB CONC 32.8 % (32.0-36.0); MONO % 11.3 % (0.0-8.0); NEUT % 77.8 % (16.0-70.0); PLATELET COUNT 158 TH/MM3 (150-450); RED BLOOD COUNT 2.84 MIL/MM3 (4.00-5.30); WHITE BLOOD COUNT 9.1 TH/MM3 (4.0-11.0)
[2016-09-23 06:14] LABS: POTASSIUM 4.5 MEQ/L (3.5-5.1)
[2016-09-23] MEDS ORDERED: FUROSEMIDE 20 MG/2 ML VIAL IV PUSH ONE (06:30)
--- NOTE | 2016-09-23 06:46 | RADRPT ---
EXAM DATE/TIME: 09/23/2016 06:24 [facility] COMPARISON: CHEST SINGLE AP, September 18, 2016, 17:03. INDICATIONS : Shortness of breath. MEDICAL HISTORY : Hypertension. Diabetes mellitus type II. Carcinoma, thyroid. SURGICAL HISTORY : Thyroidectomy ENCOUNTER: Subsequent ACUITY: 3 days PAIN SCORE: 0/10 LOCATION: Bilateral chest FINDINGS: A single view of the chest demonstrates new bilateral prominent patchy airspace disease with peribron chial cuffing and fullness. The cardiomediastinal contours are unremarkable. Osseous structures are intact. CONCLUSION: New airspace disease in the lungs with perihilar cuffing and fullness could be pulmonary vascular con gestion or ARDS. Telly Moreno MD on September 23, 2016 at 6:43 Board Certified Radiologist. This report was verified electronically.
[2016-09-23] MEDS: REMOVE OLD PATCH T-DERMAL SCH (09:00)
[2016-09-23] MEDS: LEVOFLOXACIN 750 MG TAB PO SCH (09:00)
[2016-09-23] MEDS: GABAPENTIN 100 MG CAP PO SCH ×3 (09:00→16:48)
[2016-09-23] MEDS: HEPARIN SODIUM - SQ 10,000 UNITS/ML VIAL SQ SCH ×2 (09:35→19:43)
[2016-09-23] MEDS: DOCUSATE SODIUM 100 MG CAP PO SCH ×2 (09:36→19:42)
[2016-09-23] MEDS: hydrOXYzine PAMOATE 25 MG CAP PO SCH ×2 (09:36→19:43)
[2016-09-23] MEDS: NICOTINE 14 MG/24 HR PATCH T-DERMAL SCH (09:37)
[2016-09-23] MEDS: VENLAFAXINE HCL XR 75 MG CAP PO SCH (09:37)
[2016-09-23] MEDS: SODIUM CHLORIDE 0.9% FLUSH 10 ML FLUSH IV FLUSH SCH ×2 (09:37→19:45)
--- NOTE | 2016-09-23 10:36 | HHI.PR ---
Subjective Remarks Temp 100.9 at midnight. Says she feesl tired. She is also sob and she is currently on 2L NC , sattign well. Sayss she doesn't have O2 at home. Denies having chest pain. No n/v/d/c. Has decreased appetite. Has LE edema bilat. Received lasix, has good urine OP. Objective Vitals Vital Signs Date Time Temp Pulse Resp B/P Pulse Ox O2 Delivery O2 Flow Rate FiO2 09/23/16 08:00 97.1 92 18 131/57 90 09/23/16 06:00 92 Nasal Cannula 4.00 09/23/16 04:00 98.8 96 22 133/60 90 09/23/16 00:00 99.1 92 20 101/50 94 09/22/16 20:00 99.0 109 22 169/80 94 09/22/16 19:45 93 09/22/16 16:00 99.1 115 19 169/79 93 09/22/16 12:00 99.0 128 19 163/75 94 I/O 09/22/16 09/22/16 09/22/16 09/23/16 09/23/16 09/23/16 07:00 15:00 23:00 07:00 15:00 23:00 Intake Total 1206 ml 1416 ml 240 ml 240 ml 0 ml Balance 1206 ml 1416 ml 240 ml 240 ml 0 ml Intake Oral 120 ml 120 ml 240 ml 240 ml IV Total 1086 ml 1296 ml 0 ml 0 ml 0 ml # Voids 2 4 2 1 # Bowel Movements 0 1 0 0 Result Diagram: 09/23/16 0530 09/23/16 0530 Imaging Last Impressions Chest X-Ray 09/23/16 0000 Signed Impressions: Service Date/Time: Friday, September 23, 2016 06:24 - CONCLUSION: New airspace disease in the lungs with perihilar cuffing and fullness could be pulmonary vascular congestion or ARDS. Telly Moreno MD Lumbar Spine MRI 09/21/16 0000 Signed Impressions: Service Date/Time: August 09:54 - CONCLUSION: 1. At L4-5 there is focally advanced degenerative disc disease with endplate marrow changes, marked disc space narrowing and mild enhancement on both sides of the disc interspace post contrast. There is a moderate-sized disc protrusion that results in a moderate stenosis of the lateral recesses. The degree of enhancement is less than would be expected with a discitis or osteomyelitis. No evidence for epidural abscess. No acute fracture or spondylolisthesis. 2. At L3-4 there is a moderate-sized broad-based disc protrusion, right worse than left resulting in a right-sided lateral recess stenosis and mild left lateral recess stenosis. Nestor Rodriguez MD Abdomen/Pelvis CT 09/19/16 0000 Signed Impressions: Service Date/Time: Monday, September 19, 2016 06:13 - CONCLUSION: Tiny pericardial effusion and chronic changes. Raza Grimm MD Objective Remarks GENERAL: Well-appearing, in bed, sleepy. CARDIOVASCULAR: RRR but mildly tachycardic. No murmurs. RESPIRATORY: Decreased breath sounds at bases. + crackles bibasilar. No wheezes. GASTROINTESTINAL: Abdomen soft, nondistended. No guarding or rebound. MUSCULOSKELETAL: No joint tenderness, effusion. 2+ bilat LE edema noted. NEUROLOGICAL: Awake and alert. Moves extremities well. A/P Problem List: (1) DKA (diabetic ketoacidoses) ICD Code: E13.10 Status: Acute (2) Sepsis ICD Code: A41.9 Status: Acute (3) UTI (urinary tract infection) ICD Code: N39.0 Status: Acute (4) Renal insufficiency ICD Code: N28.9 Status: Acute (5) Tobacco abuse ICD Code: Z72.0 Status: Acute (6) Nausea & vomiting ICD Code: R11.2 Status: Acute Assessment and Plan Sepsis: tachycadia + fever + leukocytosis in setting of likely UTI. - s/p unasyn (09/19-) now on cefepime. S/p tx with rocephin x1 (09/18). - WBC trending down (8.4 today). Tmax 100.9 overnight. Afebrile thus far. Repeating blood cx 09/20/16 and 09/19/16 no growth to date, 2D Echo done EF 55-60 %. Lumbar MRI did not show any epidural abscess or discitis or osteomyelitis. - lactic acid 1.2 - Initial blood cultures and urine cultures growing Escherichia coli. - DC IVF as noted with LE edema and congestion. Patient with sob, dessating she is with acute respiratory failure requiring O2 by nasal canula. CXR with New airspace disease in the lungs with perihilar cuffing and fullness could be pulmonary. DC IVF, received lasix IV x1 . lasis 20 mg po daily. Monitor. Keep O2 sat> 92%. Duonebs s need. vascular congestion or ARDS. HLIV. per ID abx switched to Levaquin and give x 14 days Repeat UA If temps less than 100 x 24 hours, and UA improving, should be able to D/C this weekend and complete course of Levaquin added propranolol to help w anxiety DKA: The pt had a glucose of 331 on admission and a beta hydroxybutyric acid level of 1.89. Her anion gap was negative. She has been having nausea and vomiting. She received 10 units of insulin in the emergency department. - Tolerating a diabetic diet. - Continue normal saline. - Medium sliding scale. - increased levemir to 10unit HS. Monitor daily ss requirement and adjust, as needed. - Antiemetics as needed. Abdominal pain/ Nausea and vomiting: It seems that the patient developed symptoms following eating at a salad bar. Possibly secondary to gastroenteritis. The patient also has a history of pancreatitis. - LFTs and lipase level ~ WNL. - IV fluids. - Advance as tolerated. - Pain control with roxicodone. IV morphine for breakthrough. - Antiemetics as needed. - PPI. Acute renal insufficiency: Improving. Creatinine 1.34 on admission, now 1.03. Likely prerenal secondary to above. -s/p IV fluids. HTN: Likely secondary to nausea, vomiting and pain. Pressures now on the low end (MAP 60-70s). - Antiemetics and pain control as needed. - IV Vasotec as needed. Nicotine abuse: The patient smokes half a pack daily. - Cessation instruction. - Nicotine patch. PPx: SCDs. heparin Discharge Planning Levaquin and give x 14 days Repeat UA, f/u results If temps less than 100 x 24 hours, and UA improving, should be able to D/C this weekend and complete course of Levaquin. Temp 100.9 midnight 09/22 Problem Qualifiers (1) DKA (diabetic ketoacidoses): Qualified Code: E10.10 - Diabetic ketoacidosis without coma associated with type 1 diabetes mellitus (2) UTI (urinary tract infection): Qualified Code: N39.0 - Urinary tract infection without hematuria, site unspecified (3) Nausea & vomiting: Qualified Code: R11.2 - Intractable vomiting with nausea, unspecified vomiting type Radha Underwood MD September 23, 2016 10:36
[2016-09-23] MEDS: PANTOPRAZOLE SODIUM 40 MG VIAL IV PUSH SCH (19:42)
[2016-09-23] MEDS: lamoTRIgine 100 MG TAB PO SCH (19:43)
[2016-09-23] MEDS: traZODone HCL 100 MG TAB PO SCH (19:43)
[2016-09-23] MEDS: INSULIN DETEMIR 100 UNITS/ML VIAL SQ SCH (19:45)
[2016-09-23] MEDS: RESP: ALBUTEROL 2.5 MG/IPRATROPIUM 0.5 MG NEB (PRN) NEB (20:16)
[2016-09-24] VITALS (15 sets, daily range): BP systolic 92–157; BP diastolic 51–79; PULSE 90–112; RESP 17–21; TEMP 97.2–99.6; O2SAT 90–99
[2016-09-24] MEDS: RESP: ALBUTEROL 2.5 MG/IPRATROPIUM 0.5 MG NEB (PRN) NEB (01:27)
[2016-09-24] MEDS: MORPHINE SULFATE 4 MG/ML INJ IV PRN ×6 (01:51→22:57)
[2016-09-24] MEDS: ONDANSETRON HCL 4 MG/2 ML VIAL IVP PRN ×4 (04:21→22:03)
[2016-09-24 05:36] LABS: AUTOMATED NEUTROPHIL # 10.7 TH/MM3 (1.8-7.7); BASOPHIL # 0.1 TH/MM3 (0-0.2); BASOPHIL % 0.4 % (0.0-2.0); EOSINOPHIL % 0.1 % (0.0-4.0); HEMATOCRIT 27.8 % (35.0-46.0); LYMPH % 9.3 % (9.0-44.0); LYMPHOCYTE # 1.2 TH/MM3 (1.0-4.8); MEAN CELL VOLUME 94.1 FL (80.0-100.0); MEAN CORPUSCULAR HEMOGLOBIN 29.2 PG (27.0-34.0); MEAN CORPUSCULAR HGB CONC 31.1 % (32.0-36.0); MONO % 8.8 % (0.0-8.0); NEUT % 81.4 % (16.0-70.0); PLATELET COUNT 235 TH/MM3 (150-450); RED BLOOD COUNT 2.96 MIL/MM3 (4.00-5.30); RED CELL DISTRIBUTION WIDTH 14.1 % (11.6-17.2); WHITE BLOOD COUNT 13.1 TH/MM3 (4.0-11.0)
[2016-09-24 05:46] LABS: HEMO FLAGS AUTO DIFF
[2016-09-24] MEDS: LEVOTHYROXINE SODIUM 25 MCG TAB PO SCH (05:55)
[2016-09-24] MEDS: LEVOTHYROXINE SODIUM 150 MCG TAB PO SCH (05:56)
[2016-09-24] MEDS: PROPRANOLOL HCL 10 MG TAB PO SCH ×3 (05:56→21:55)
[2016-09-24 06:03] LABS: BICARBONATE 15.2 MEQ/L (21.0-32.0); POTASSIUM 4.2 MEQ/L (3.5-5.1)
[2016-09-24] MEDS: INSULIN ASPART SUPPLEMENTAL SCALE SQ SCH ×5 (06:04→23:00)
--- NOTE | 2016-09-24 06:22 | RADRPT ---
EXAM DATE/TIME: 09/24/2016 05:26 [facility] COMPARISON: CHEST SINGLE AP, September 23, 2016, 6:24. INDICATIONS : Pt short of breath with cough. MEDICAL HISTORY : Hypertension. Diabetes mellitus type II. Carcinoma, thyroid. SURGICAL HISTORY : Thyroidectomy ENCOUNTER: Subsequent ACUITY: 4 - 6 days PAIN SCORE: 5/10 LOCATION: Bilateral chest FINDINGS: Bilateral airspace consolidation has increased over the last day, this is perihilar. Probable small e ffusions. No pneumothorax. Heart size upper limits normal. CONCLUSION: 1. Worsening bilateral airspace consolidation over the last day. Nestor Rodriguez MD on September 24, 2016 at 6:20 Board Certified Radiologist. This report was verified electronically.
[2016-09-24] MEDS: NICOTINE 14 MG/24 HR PATCH T-DERMAL SCH (07:46)
[2016-09-24] MEDS: hydrOXYzine PAMOATE 25 MG CAP PO SCH ×2 (07:47→19:28)
[2016-09-24] MEDS: REMOVE OLD PATCH T-DERMAL SCH (07:47)
[2016-09-24] MEDS: SODIUM CHLORIDE 0.9% FLUSH 10 ML FLUSH IV FLUSH SCH ×2 (07:47→19:29)
[2016-09-24] MEDS: LEVOFLOXACIN 750 MG TAB PO SCH (07:47)
[2016-09-24] MEDS: DOCUSATE SODIUM 100 MG CAP PO SCH ×2 (07:47→19:29)
[2016-09-24] MEDS: GABAPENTIN 100 MG CAP PO SCH ×3 (07:47→17:08)
[2016-09-24] MEDS: VENLAFAXINE HCL XR 75 MG CAP PO SCH (07:47)
[2016-09-24] MEDS: HEPARIN SODIUM - SQ 10,000 UNITS/ML VIAL SQ SCH ×2 (07:48→19:29)
[2016-09-24] MEDS ORDERED: RESP: ALBUTEROL 2.5 MG/IPRATROPIUM 0.5 MG NEB (SCH) NEB ONE (08:15)
--- NOTE | 2016-09-24 08:48 | HHI.PR ---
Subjective Remarks With sob , desatting at 70s while on 4L NC, currently on NRM. Patient reports sob, feeling tired. She is also wheezing. Denies any chest pain . She has abd and leg pain./ Still with some LE edema. Has a good UOP. No n/v/d/ c. Objective Vitals Vital Signs Date Time Temp Pulse Resp B/P Pulse Ox O2 Delivery O2 Flow Rate FiO2 09/24/16 08:13 93 09/24/16 08:00 98.7 106 20 117/57 97 09/24/16 07:59 Non-Rebreather 8.00 09/24/16 07:42 78 Nasal Cannula 4.00 09/24/16 07:42 97 Non-Rebreather 8.00 09/24/16 06:01 18 09/24/16 05:22 18 09/24/16 04:46 98.5 92 18 126/58 92 09/24/16 01:29 90 Nasal Cannula 4.00 09/24/16 00:23 99.0 90 18 125/62 92 09/23/16 20:18 92 Nasal Cannula 4.00 09/23/16 20:00 97.6 100 18 144/78 94 09/23/16 20:00 114 09/23/16 19:45 Nasal Cannula 4.00 09/23/16 16:00 98.3 98 18 144/66 92 09/23/16 12:00 97.9 89 19 110/62 90 I/O 09/23/16 09/23/16 09/23/16 09/24/16 09/24/16 09/24/16 07:00 15:00 23:00 07:00 15:00 23:00 Intake Total 240 ml 400 ml 480 ml 450 ml Output Total 50 ml Balance 240 ml 400 ml 430 ml 450 ml Intake Oral 240 ml 400 ml 480 ml 450 ml IV Total 0 ml 0 ml Emesis 50 ml # Voids 1 4 2 2 # Bowel Movements 0 1 Result Diagram: 09/24/16 0513 09/24/16 0513 Imaging Last Impressions Chest X-Ray 09/24/16 0600 Signed Impressions: Service Date/Time: Saturday, September 24, 2016 05:26 - CONCLUSION: 1. Worsening bilateral airspace consolidation over the last day. Nestor Rodriguez MD Lumbar Spine MRI 09/21/16 0000 Signed Impressions: Service Date/Time: August 09:54 - CONCLUSION: 1. At L4-5 there is focally advanced degenerative disc disease with endplate marrow changes, marked disc space narrowing and mild enhancement on both sides of the disc interspace post contrast. There is a moderate-sized disc protrusion that results in a moderate stenosis of the lateral recesses. The degree of enhancement is less than would be expected with a discitis or osteomyelitis. No evidence for epidural abscess. No acute fracture or spondylolisthesis. 2. At L3-4 there is a moderate-sized broad-based disc protrusion, right worse than left resulting in a right-sided lateral recess stenosis and mild left lateral recess stenosis. Nestor Rodriguez MD Abdomen/Pelvis CT 09/19/16 0000 Signed Impressions: Service Date/Time: Monday, September 19, 2016 06:13 - CONCLUSION: Tiny pericardial effusion and chronic changes. Raza Grimm MD Objective Remarks GENERAL: Very pleasant 51 yo F, ill appearing in bed, with sob, currently on NRM CARDIOVASCULAR: RRR, mildly tachycardic. No murmurs. RESPIRATORY: Decreased breath sounds. Scattered crackles. Scattered wheezing. GASTROINTESTINAL: Abdomen soft, nondistended. No guarding or rebound. MUSCULOSKELETAL: No joint tenderness, effusion. 2+ bilat LE edema noted. NEUROLOGICAL: Awake and alert. Moves extremities well. A/P Problem List: (1) DKA (diabetic ketoacidoses) ICD Code: E13.10 Status: Acute (2) Sepsis ICD Code: A41.9 Status: Acute (3) UTI (urinary tract infection) ICD Code: N39.0 Status: Acute (4) Renal insufficiency ICD Code: N28.9 Status: Acute (5) Tobacco abuse ICD Code: Z72.0 Status: Acute (6) Nausea & vomiting ICD Code: R11.2 Status: Acute Assessment and Plan Sepsis: tachycadia + fever + leukocytosis in setting of likely UTI. - s/p unasyn (09/19-) now on cefepime. S/p tx with rocephin x1 (09/18). - WBC trending down (8.4 today). Tmax 100.9 (09/22 night). Repeating blood cx and 09/19/16 no growth to date, 2D Echo done EF 55-60%, trivial pericardial effusion. Lumbar MRI did not show any epidural abscess or discitis or osteomyelitis. - lactic acid 1.2 - Initial blood cultures and urine cultures growing Escherichia coli. - DC IVF as noted with LE edema and congestion. Patient with sob, dessating she is with acute respiratory failure requiring O2 by nasal canula worsening, now on 8L on NRM. Poss ARDS 2/2 infection. CXR with New airspace disease in the lungs with perihilar cuffing and fullness could be pulmonary. vascular congestion or ARDS. DCd IVF 09/23. Received lasix IV x1. Stat abg, reviewed , also findings discussed with the wind turbine installer Dr Da Silva and aware of patient if deteriorates. Consult pulm . Check Trop, CK MB, EKGr/o silent NV. ECHO this admission with normal EF and trace pericardial effusion. CXR repeat 09/24 worsening. Start lasix 40 mg IV bid. Also wheezing. Give 125 IV solumedrol continue steroids. Give duonebs scheduled and PRN / Taper steroids, duonebs as tolerated. Continue lasix and monitor closely renal indices. Monitor. Keep O2 sat> 92%. Duonebs s need. Discussed with television station manager ID specialist Dr Melendez, appreciate recommendations. Start cefepime IV Q*hrs, and vancomycin 1g q24 hrs, pharm to dose. Hold levaquin at this time. per ID abx switched to Levaquin and give x 14 days Repeat UA. Repeat urine cultures and blood cultures x2 on 09/24 before starting IV abx . If temps less than 100 x 24 hours, and UA improving, should be able to D/C this weekend and complete course of Levaquin added propranolol to help w anxiety DKA: The pt had a glucose of 331 on admission and a beta hydroxybutyric acid level of 1.89. Her anion gap was negative. She has been having nausea and vomiting. She received 10 units of insulin in the emergency department. - Tolerating a diabetic diet. - Continue normal saline. - Medium sliding scale. - increased levemir to 10unit HS. Monitor daily ss requirement and adjust, as needed. - Antiemetics as needed. Abdominal pain/ Nausea and vomiting: It seems that the patient developed symptoms following eating at a salad bar. Possibly secondary to gastroenteritis. The patient also has a history of pancreatitis. - LFTs and lipase level ~ WNL. - IV fluids. - Advance as tolerated. - Pain control with roxicodone. IV morphine for breakthrough. - Antiemetics as needed. - PPI. Acute renal insufficiency: Improving. Creatinine 1.34 on admission, now 1.03. Likely prerenal secondary to above. -s/p IV fluids. HTN: Likely secondary to nausea, vomiting and pain. Pressures now on the low end (MAP 60-70s). - Antiemetics and pain control as needed. - IV Vasotec as needed. Nicotine abuse: The patient smokes half a pack daily. - Cessation instruction. - Nicotine patch. PPx: SCDs. heparin Discharge Planning Patient with acute respiratory failure at this time, deteriorating anticipate at DC : Levaquin and give x 14 days Repeat UA, f/u results If temps less than 100 x 24 hours, and UA improving, should be able to D/C this weekend and complete course of Levaquin. Temp 100.9 midnight 09/22 and now deteriorating dessating respiratiry failure, poss ARDS, r.o NV Discussed with the patient, nurse, Dr Melendez ID specialist. Dr Da Silva ICU Critical time 40 minutes Problem Qualifiers (1) DKA (diabetic ketoacidoses): Qualified Code: E10.10 - Diabetic ketoacidosis without coma associated with type 1 diabetes mellitus (2) UTI (urinary tract infection): Qualified Code: N39.0 - Urinary tract infection without hematuria, site unspecified (3) Nausea & vomiting: Qualified Code: R11.2 - Intractable vomiting with nausea, unspecified vomiting type Radha Underwood MD September 24, 2016 08:48
[2016-09-24 08:51] LABS: BANDS 13 % (0-6); NEUTROPHIL # MANUAL DIFF 11.4 TH/MM3 (1.8-7.7); PLATELET ESTIMATE SMEAR NORMAL (NORMAL); PLATELET MORPHOLOGY NORMAL (NORMAL); POLYS (SEG NEUTROPHILS) 74 % (16-70); SCAN/DIFF FINAL DIFF MANUAL; WBC DIFF SAMPLE 100
[2016-09-24] MEDS: FUROSEMIDE 40 MG/4 ML VIAL IV PUSH SCH ×2 (08:57→17:09)
[2016-09-24] MEDS ORDERED: FUROSEMIDE 20 MG TAB PO SCH (09:00)
[2016-09-24] MEDS ORDERED: methylPREDNISolone SOD SUCC 125 MG/2 ML VIAL IV PUSH ONE (09:00)
[2016-09-24 09:12] LABS: BLOOD GAS BASE EXCESS -8.4 mmol/L (-2-2); BLOOD GAS CARBOXYHEMOGLOBIN 1.9 % (0-4); BLOOD GAS HCO3 17 mmol/L (22-26); BLOOD GAS METHEMOGLOBIN 1.1 % (0-2); BLOOD GAS O2 HGB SATURATION 92 % (90-100); BLOOD GAS PCO2 34 mmHg (38-42); BLOOD GAS PO2 75 mmHg (61-120); BLOOD GAS TOTAL HGB 9.2 G/DL (12.0-16.0); CRITICAL VALUE NO; FIO2 100 %; LITER FLOW 15 L/M; OXYGEN DEVICE NONREBREATHER; TEMP CORR TO 98.6
[2016-09-24 09:13] LABS: DRAW SITE LT RADIAL; NUMBER OF ARTERIAL PUNCTURES 1; STAT YES; ULNAR PULSE PRESENT
[2016-09-24] MEDS: methylPREDNISolone SOD SUCC 40 MG/1 ML VIAL IV PUSH SCH ×3 (11:26→22:57)
[2016-09-24] MEDS ORDERED: Vancomycin Consult Pharmacy 1 EA OTHER SCH (12:30)
[2016-09-24] MEDS: RESP: ALBUTEROL 2.5 MG/IPRATROPIUM 0.5 MG NEB (SCH) NEB ×3 (12:32→19:11)
[2016-09-24] MEDS ORDERED: VANCOMYCIN INJ 1,000 MG in SODIUM CHLOR 0.9% 250 ML INJ 250 ML IV SCH (13:00)
[2016-09-24] MEDS ORDERED: CEFEPIME INJ 2,000 MG in SODIUM CHLORIDE 0.9% INJ 100 ML IV SCH (14:00)
[2016-09-24 14:04] LABS: BLOOD, URINE SMALL (NEG); GLUCOSE,URINE 70 mg/dL (NEG); HYALINE CAST, URINE 3 /lpf (RARE); KETONE, URINE 10 mg/dL (NEG); MUCUS URINE FEW /lpf (OCC); NITRITE,URINE NEG (NEG); SQUAMOUS EPITHELIAL CELL URINE <1 /hpf (0-5); URINE COLOR LIGHT-YELLOW (YELLW/STRAW)
[2016-09-24 17:48] LABS: CREATINE KINASE 155 U/L (26-192)
[2016-09-24 18:00] LABS: CKMB 3.6 NG/ML (0.5-3.6)
[2016-09-24] MEDS: traZODone HCL 100 MG TAB PO SCH (19:28)
[2016-09-24] MEDS: lamoTRIgine 100 MG TAB PO SCH (19:29)
[2016-09-24] MEDS: PANTOPRAZOLE SODIUM 40 MG VIAL IV PUSH SCH (19:29)
[2016-09-24] MEDS: INSULIN DETEMIR 100 UNITS/ML VIAL SQ SCH (19:39)
--- NOTE | 2016-09-24 19:43 | HHI.IDPN ---
Subjective Subjective Remarks ID X cover for Dr Gibson chart reviewed; dw Dr Underwood is a 51 y/o CF with PMHx of renal cancer s.p partial resection of left kidney, thyroid cancer s.p thyroidectomy, DM 2 on insulin and recurrent UTIs. She preesnte d 1 week ago with Sepsis, and UTI due to E.coli; the organism was brooks Sensitive and pt was the whole time on appropiate abx Her last abx was levaquine she was doing good and was getting ready to be discharged but over the last 24 hrs developped SOB, hypoxia requireing placement on non rebreather CXR was positive for pulmonary infiltrates Pt denies any chest pain, co on R sided abdominal pain no diarhea, no cramps No cough , no wexpectoration W/u reveals new onset bandemia in the last 2 days, BNP 300+; UA showed just 9 WBC Pt is not doing so well on NRB and will be transferred to ICU in anticipation for possible intubation incase of progression of her hypoxia Antibiotics levaquine Lines Line sites with no e/o infection Past Medical History Past Medical History Diabetes Degenerative disc disease Pancreatitis Recurrent UTIs Past Surgical History Left kidney cancer status post surgery Thyroid cancer status post thyroidectomy. Allergies: Coded Allergies: Sulfa (Verified Allergy, Severe, Hives, 09/18/16) Objective . Vital Signs Date Time Temp Pulse Resp B/P Pulse Ox O2 Delivery O2 Flow Rate FiO2 09/24/16 16:10 98 Partial Rebreather 15.00 09/24/16 16:00 98.3 103 17 118/56 99 09/24/16 12:00 98.3 91 18 92/51 94 09/24/16 10:57 107 09/24/16 08:47 92 Non-Rebreather 15.00 09/24/16 08:13 93 09/24/16 08:00 98.7 106 20 117/57 97 09/24/16 07:59 Non-Rebreather 8.00 09/24/16 07:42 78 Nasal Cannula 4.00 09/24/16 07:42 97 Non-Rebreather 8.00 09/24/16 06:01 18 09/24/16 05:22 18 09/24/16 04:46 98.5 92 18 126/58 92 09/24/16 01:29 90 Nasal Cannula 4.00 09/24/16 00:23 99.0 90 18 125/62 92 09/23/16 20:18 92 Nasal Cannula 4.00 09/23/16 20:00 97.6 100 18 144/78 94 09/23/16 20:00 114 09/23/16 19:45 Nasal Cannula 4.00 09/23/16 09/23/16 09/24/16 15:00 23:00 07:00 Intake Total 400 ml 480 ml 450 ml Output Total 50 ml Balance 400 ml 430 ml 450 ml Intake Oral 400 ml 480 ml 450 ml IV Total 0 ml Emesis 50 ml # Voids 4 2 2 # Bowel Movements 1 . Laboratory Tests Test 09/23/16 09/24/16 05:30 05:13 White Blood Count 9.1 TH/MM3 13.1 TH/MM3 Red Blood Count 2.84 MIL/MM3 2.96 MIL/MM3 Hemoglobin 8.6 GM/DL 8.6 GM/DL Hematocrit 26.2 % 27.8 % Mean Corpuscular Volume 92.3 FL 94.1 FL Mean Corpuscular Hemoglobin 30.3 PG 29.2 PG Mean Corpuscular Hemoglobin 32.8 % 31.1 % Concent Red Cell Distribution Width 14.0 % 14.1 % Platelet Count 158 TH/MM3 235 TH/MM3 Mean Platelet Volume 8.1 FL 8.7 FL Neutrophils (%) (Auto) 77.8 % 81.4 % Lymphocytes (%) (Auto) 9.7 % 9.3 % Monocytes (%) (Auto) 11.3 % 8.8 % Eosinophils (%) (Auto) 0.6 % 0.1 % Basophils (%) (Auto) 0.6 % 0.4 % Neutrophils # (Auto) 7.1 TH/MM3 10.7 TH/MM3 Lymphocytes # (Auto) 0.9 TH/MM3 1.2 TH/MM3 Monocytes # (Auto) 1.0 TH/MM3 1.2 TH/MM3 Eosinophils # (Auto) 0.1 TH/MM3 0.0 TH/MM3 Basophils # (Auto) 0.1 TH/MM3 0.1 TH/MM3 CBC Comment DIFF FINAL AUTO DIFF Differential Comment FINAL DIFF MANUAL Differential Total Cells 100 Counted Neutrophils % (Manual) 74 % Band Neutrophils % 13 % Lymphocytes % 4 % Monocytes % 9 % Neutrophils # (Manual) 11.4 TH/MM3 Platelet Estimate NORMAL Platelet Morphology Comment NORMAL Laboratory Tests Test 09/23/16 09/24/16 09/24/16 05:30 05:13 17:05 Sodium Level 139 MEQ/L 139 MEQ/L Potassium Level 4.5 MEQ/L 4.2 MEQ/L Chloride Level 109 MEQ/L 105 MEQ/L Carbon Dioxide Level 20.0 MEQ/L 15.2 MEQ/L Anion Gap 10 MEQ/L 19 MEQ/L Blood Urea Nitrogen 13 MG/DL 16 MG/DL Creatinine 0.99 MG/DL 1.05 MG/DL Estimat Glomerular Filtration 60 ML/MIN 56 ML/MIN Rate Random Glucose 259 MG/DL 314 MG/DL Calcium Level 7.5 MG/DL 7.7 MG/DL B-Type Natriuretic Peptide 322 PG/ML Lactic Acid Level 1.4 mmol/L Total Creatine Kinase 155 U/L Creatine Kinase MB 3.6 NG/ML Troponin I LESS THAN 0.02 NG/ML Microbiology Date/Time Procedure Status Source Growth 09/24/16 13:27 Urine Culture Received Urine Clean Catch Pending 09/24/16 17:05 Aerobic Blood Culture Received Blood Peripheral Pending 09/24/16 17:05 Anaerobic Blood Culture Received Blood Peripheral Pending 09/24/16 17:10 Aerobic Blood Culture Received Blood Peripheral Pending 09/24/16 17:10 Anaerobic Blood Culture Received Blood Peripheral Pending Imaging Last Impressions Abdomen/Pelvis CT 09/19/16 0000 Signed Impressions: Service Date/Time: Monday, September 19, 2016 06:13 - CONCLUSION: Tiny pericardial effusion and chronic changes. KJesús Grimm MD Chest X-Ray 09/18/16 1648 Signed Impressions: Service Date/Time: Sunday, September 18, 2016 17:03 - CONCLUSION: No acute disease. Jack Sung MD Physical Exam GENERAL: [place] and alert, Moderate resp distress SKIN: No rashes, ecchymoses or lesions. Cool and dry. HEAD: Atraumatic. Normocephalic. No temporal or scalp tenderness. EYES: Pupils equal round and reactive. Extraocular motions intact. No scleral icterus. No injection or drainage. ENT: Nose without bleeding, purulent drainage or septal hematoma. Oralm mucosae without erythema, tonsillar hypertrophy or exudate. Uvula midline. Airway patent. NECK: Trachea midline. Supple, nontender, no meningeal signs. CARDIOVASCULAR: RRR without murmur. RESPIRATORY: Clear to auscultation. Breath sounds equal bilaterally. No wheezes , rales, or rhonchi. GASTROINTESTINAL: Abdomen soft, (+) BS, tender on R side, no guarding or rebound No hepatomegaly MUSCULOSKELETAL: Extremities without clubbing, cyanosis, or edema. No joint tenderness, effusion, or edema noted. No calf tenderness. Negative Homans sign bilaterally. NEUROLOGICAL: Awake and alert. Grossly non focal Psych: cooperative; calm IV line sites with no e/o infection. Assessment & Plan Remarks Sepsis present on admission E.coli bacteremia: 2/2 UTI, pyelonephritis. (Abd CT detailed report reveals ? stranding of kidneys) DM 2 uncontrolled. recurrent UTI by history, no renal stones. New onset hypoxia with pulm infiltrates,bandemia - ? ARDS 2/2 new/ worsening infx - cardiogenic (less likley, but BNP is clearly above nl) Previous abx used: cefepime, levaquine Recs: Change Levaquin to zosyn and vancomycin fu P blood and urine clx repeat CT abd/pel whenm stable to eval the abd pain LFTs, lipase amylase consider to chk cardiac enzymes dw Dr devon Chaves, Moira Garrido MD September 24, 2016 19:43
[2016-09-24] MEDS ORDERED: DIATRIZOATE MEGLUM/DIATRIZOATE SOD 9 ML CUP PO ONE (20:15)
--- NOTE | 2016-09-24 20:20 | MB ---
cc: SANTANA CAMERON DATE OF CONSULTATION 09/24/[address] Radha Underwood. REASON FOR CONSULTATION Lung infiltrate. HISTORY OF PRESENT ILLNESS Ms. Ward is a 51-year-old white female with a history of CA of the kidney status post partial nephrectomy and history of CA of thyroid. She had to have surgery done twice and she had radioactive iodine. The patient came to the hospital with nausea, vomiting, abdominal pain and chills. She says that whenever she gets a urinary tract infection she gets these kinds of symptoms. The patient was found to have E-coli infection. Patient is being seen by infectious disease specialist. She had a chest x-ray done which shows worsening bilateral lung infiltrates and she is currently on non-rebreather mask. Her blood gas on non-rebreather mask pH 7.31, pCO2 34, pO2 74, bicarb 17. CBC showed a WBC count of 13.1, hemoglobin 8.6, hematocrit 27.8, MCV 94, platelet count 235. Sodium 113, potassium 4.2, chloride 105, CO2 19, BUN 16, creatinine 1.05. Her chest x-ray shows bilateral airspace consolidation. PAST MEDICAL HISTORY 1. Significant for history of renal cell carcinoma. 2. History of CA of the thyroid. 3. Degenerative disease. 4. Chronic pancreatitis. 5. Urinary tract infection. MEDICATIONS She is currently takin. Vancomycin IV. 2. Cefepime. 3. Albuterol Atrovent nebulizer treatment. 4. Solu-Medrol 40 mg q.6h. 5. Morphine for pain. 6. Lasix 40 mg twice a day. 7. Insulin 10 units. 8. Propranolol 10 mg q.8h. 9. Effexor 150 mg a day. 10. Trazodone 200 mg at nighttime. 11. Heparin 5000 q.12. 12. Gabapentin 100 milligrams three times a day. 13. Levothyroxine 175 micrograms a day. 14. Lamictal 200 mg at nighttime. 15. Vistaril 25 mg twice a day. 16. Protonix 40 mg a day. ALLERGIES SHE IS ALLERGIC TO SULFA. For SOCIAL HISTORY She is single. Has a history of smoking which she cut down. Denies any alcohol abuse. FAMILY HISTORY She used to work before, she is disabled. Has one son. She lives alone. REVIEW OF SYSTEMS She denies any weight loss. No seizure, stroke or epilepsy or DVT or pulmonary embolism. PHYSICAL EXAMINATION GENERAL: Well built, well-nourished female mild short of breath. She is on nonrebreather mask. Saturation runs between 80-98%. Heart rate 103. Respiratory rate 17. Temperature 98.3. HEENT: Pupils are equal and reactive to light. Oral mucosa, nasal mucosa normal. NECK: Supple. JVP not raised. CHEST: She has scattered rales. CARDIOVASCULAR: S1, S2 normal. ABDOMEN: Soft, nondistended. Bowel sounds are present. EXTREMITIES: No edema. IMPRESSION 1. Hypoxic respiratory insufficiency. 2. Bilateral lung infiltrate, possible early acute respiratory distress syndrome. 3. E-coli sepsis. 4. Urinary tract infection. 5. Chronic pancreatitis. 6. Chronic degenerative disk disease, chronic pain. PLAN I will put her on high-flow oxygen to keep the saturation greater than 90%. If she is not able to maintain the oxygenation we will transfer her to the intensive care unit. Continue antibiotics as per ID recommendations. I discussed with her if her condition gets worse then she will need to be intubated which she is agreeable at this time. Further treatment will depend on the course in the hospital. Thank you Dr. Radha Underwood for this consultation. MD RACHELL Thakur/CHINTAN /7:34 PM /7:55 PM
--- NOTE | 2016-09-24 20:41 | EKG ---
Date Performed: 09/24/2016 Time Performed: 19:36:33 PTAGE: 51 years EKG: SINUS TACHYCARDIA LOW QRS VOLTAGE IN EXTREMITY LEADS POSSIBLE ANTERIOR MYOCARDIAL INFARCTIO N , OF INDETERMINATE AGE ABNORMAL ECG NO SIGNIFICANT CHANGE FROM PRIOR ELECTROCARDIOGRAM. PREVIOUS TRACING : 09/22/2016 05.11 DOCTOR: Ayo Cuellar Interpretating Date/Time 09/24/2016 20:40:37
[2016-09-24] MEDS: PIPERACIL-TAZO 4.5 GM PREMIX 100 ML IV SCH (20:42)
[2016-09-24] MEDS ORDERED: CHLORHEXIDINE GLUCONATE 2 % 1 PACK (2 CLOTHS)(extra cloths) TOPICAL PRN (21:30)
[2016-09-24] MEDS: LEVOFLOXACIN 750 MG PREMIX INJ 150 ML IV SCH (22:03)
--- NOTE | 2016-09-24 22:03 | PD.CONS ---
[facility] Service Critical Care Medicine Consult Requested By Dr. Underwood Reason for Consult Critical care management Primary Care Physician No Primary Care Physician History of Present Illness Admission 09/18/16 Date of consult 09/24/16 51-year-old female with a past medical history of diabetes, hypothyroidism status post thyroidectomy, hyperlipidemia, chronic pancreatitis, bipolar disorder, recurrent urinary tract infections, remote history of alcohol abuse, history of IV drug use, who is transferred [place] [facility] [place] due to worsening respiratory status with bilateral pulmonary infiltrates. She was initially admitted on 09/18/16. She states that she began feeling nauseated on the day prior to admission "but I ate anyway". Then felt chills and rather diffuse abdominal pain 9 out of 10 in severity, centrally located and radiating into her back and into her hips. She had multiple episodes of emesis. She denies diarrhea. Fever up to 102.6. She states that this feels different than her prior issues with pancreatitis. She has had recurrent urinary tract infections but states that this also felt different than those and she denied dysuria. Her workup included urinalysis which was consistent with urinary tract infection with culture positive for pansensitive Escherichia coli. She was bacteremic with Escherichia coli in 4 out of 4 blood cultures. She received various beta-lactam antibiotics, all of which would appropriately cover cultured organism (Rocephin 09/18-09/19, unasyn 09/19, Cefepime 09/19-09/22). Blood cultures cleared on 09/19, 09/20 and she defervesced 09/23. CT C/A/P on 09/19 was negative. Lumbar MRI negative 09/21 for epidural abscess/ osteo/ diskitis. CXR on 09/18 was clear and lung geronimo on the CT from 09/19 also clear. She has been on NC ~ 4L. CXR on 09/23 showed bilateral infiltrates, perihilar and bibasilar. She received Lasix 20 mg IV on 09/23. Repeat CXR 09/24 worse infiltrates. She is now on NR. She continues to complain of abdominal pain, about the same as since admission, possibly a little better. She has been started on zosyn and vancomycin per ID and repeat CT abd/pelvis is ordered. Patient has had Echo with EF 55-60%. Troponin negative. Process appears c/w ARDS despite noted BNP 322. Patient also has had 2 prior prolonged hospitalizations for mechanical ventilation with "bilateral pneumonia" which may have been ARDS. Past Family Social History Allergies: Coded Allergies: Sulfa (Verified Allergy, Severe, Hives, 09/18/16) Past Medical History Bipolar disorder Diabetes mellitus Neuropathy Chronic pancreatitis GERD Hyperlipidemia Hypothyroidism Tobacco abuse History of alcohol abuse History of IV drug use She was hospitalized for bilateral pneumonia in 2007 requiring mechanical ventilation; hospitalized for 2 weeks in [employer] She was hospitalized in 2012 in [facility] for bilateral pneumonia, on prolonged mechanical ventilation but did not require trach.. She was hospitalized for 5 weeks and then went to rehabilitation for 2 weeks. She denies history of seizures. She is on Lamictal for neuropathy. Past Surgical History Thyroidectomy 1987 L partial nephrectomy 2006 for cancer Reported Medications Gabapentin 600 mg by mouth 3 times a day Lamictal 200 mg by mouth daily at bedtime Effexor 150 mg by mouth daily Bentyl 20 mg by mouth 3 times a day Visteril 25 mg by mouth twice a day Albuterol 1 puff inhaled every 4 hours Zantac 150 mg by mouth twice a day Simvastatin 20 mg by mouth daily at bedtime Detemir 8 units subcutaneous at bedtime Insulin sliding scale Lasix 40 mg by mouth daily Folic acid 1 mg by mouth daily Loperamide for Milgrom's by mouth 3 times a day when necessary and diarrhea Trazodone 400 mg by mouth daily at bedtime Phenergan 25 mg rectal when necessary nausea Pantoprazole 40 mg by mouth daily Potassium chloride 10 mEq by mouth daily Loratadine 10 mg by mouth daily Levothyroxin 175 g by mouth daily Family History She is adopted and is not aware of her family medical history. Social History She smokes half pack of cigarettes per day. She used to smoke one pack of cigarettes per day but now has cutback while supplementing with vaping She states she used to drink very heavily for about 20 years but states she has been sober since 1998 She uses marijuana occasionally. Denies other illicit drugs currently. 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 Physical Exam Vital Signs Vital Signs Date Time Temp Pulse Resp B/P Pulse Ox O2 Delivery O2 Flow Rate FiO2 09/24/16 21:07 99.6 106 20 155/75 96 09/24/16 20:00 97.2 109 21 157/79 97 09/24/16 16:10 98 Partial Rebreather 15.00 09/24/16 16:00 98.3 103 17 118/56 99 09/24/16 12:00 98.3 91 18 92/51 94 09/24/16 10:57 107 09/24/16 08:47 92 Non-Rebreather 15.00 09/24/16 08:13 93 09/24/16 08:00 98.7 106 20 117/57 97 09/24/16 07:59 Non-Rebreather 8.00 09/24/16 07:42 78 Nasal Cannula 4.00 09/24/16 07:42 97 Non-Rebreather 8.00 09/24/16 06:01 18 09/24/16 05:22 18 09/24/16 04:46 98.5 92 18 126/58 92 09/24/16 01:29 90 Nasal Cannula 4.00 09/24/16 00:23 99.0 90 18 125/62 92 Physical Exam GENERAL: Very pleasant talkative female who is sitting up in bed on high flow nasal cannula. SKIN: Warm and dry, well perfused. No rash HEAD: Atraumatic. Normocephalic. EYES: Pupils equal and round, 3 mm reactive. No scleral icterus. No injection or drainage. ENT: No nasal bleeding or discharge. Mucous membranes pink and moist. NECK: Trachea midline. No JVD. CARDIOVASCULAR: Tachycardic, regular, sinus tachycardia about 105 on the monitor. No murmurs rubs or gallops. RESPIRATORY: Tachypneic but no accessory muscle use. She has paralysis throughout bilateral lung geronimo anteriorly and posteriorly. No rhonchi GASTROINTESTINAL: Abdomen diffusely tender but is overall soft without rebound or guarding. No flank tenderness. Bowel sounds present. MUSCULOSKELETAL: Extremities without clubbing, cyanosis, or edema. No obvious deformities. NEUROLOGICAL: Awake and alert. No obvious cranial nerve deficits. Motor grossly within normal limits. Normal speech. Oriented 4 Laboratory Laboratory Tests Test 09/24/16 09/24/16 09/24/16 09/24/16 05:13 09:00 13:27 17:05 White Blood Count 13.1 Red Blood Count 2.96 Hemoglobin 8.6 Hematocrit 27.8 Mean Corpuscular Volume 94.1 Mean Corpuscular Hemoglobin 29.2 Mean Corpuscular Hemoglobin 31.1 Concent Red Cell Distribution Width 14.1 Platelet Count 235 Mean Platelet Volume 8.7 Neutrophils (%) (Auto) 81.4 Lymphocytes (%) (Auto) 9.3 Monocytes (%) (Auto) 8.8 Eosinophils (%) (Auto) 0.1 Basophils (%) (Auto) 0.4 Neutrophils # (Auto) 10.7 Lymphocytes # (Auto) 1.2 Monocytes # (Auto) 1.2 Eosinophils # (Auto) 0.0 Basophils # (Auto) 0.1 CBC Comment AUTO DIFF Differential Total Cells 100 Counted Neutrophils % (Manual) 74 Band Neutrophils % 13 Lymphocytes % 4 Monocytes % 9 Neutrophils # (Manual) 11.4 Differential Comment FINAL DIFF MANUAL Platelet Estimate NORMAL Platelet Morphology Comment NORMAL Sodium Level 139 Potassium Level 4.2 Chloride Level 105 Carbon Dioxide Level 15.2 Anion Gap 19 Blood Urea Nitrogen 16 Creatinine 1.05 Estimat Glomerular Filtration 56 Rate Random Glucose 314 Calcium Level 7.7 B-Type Natriuretic Peptide 322 Blood Gas Puncture Site LT RADIAL Blood Gas Patient Temperature 98.6 Blood Gas HCO3 17 Blood Gas Base Excess -8.4 Blood Gas Oxygen Saturation 92 Arterial Blood pH 7.31 Arterial Blood Partial 34 Pressure CO2 Arterial Blood Partial 75 Pressure O2 Arterial Blood Oxygen Content 12.0 Arterial Blood 1.9 Carboxyhemoglobin Arterial Blood Methemoglobin 1.1 Blood Gas Hemoglobin 9.2 Oxygen Delivery Device NONREBREATHER Blood Gas Liter Flow 15 Blood Gas Inspired Oxygen 100 Urine Color LIGHT-YELLOW Urine Turbidity CLEAR Urine pH 5.0 Urine Specific [place] 1.006 Urine Protein TRACE Urine Glucose (UA) 70 Urine Ketones 10 Urine Occult Blood SMALL Urine Nitrite NEG Urine Bilirubin NEG Urine Urobilinogen LESS THAN 2.0 Urine Leukocyte Esterase SMALL Urine RBC LESS THAN 1 Urine WBC 9 Urine Squamous Epithelial <1 Cells Urine Hyaline Casts 3 Urine Mucus FEW Microscopic Urinalysis Comment Lactic Acid Level 1.4 Total Creatine Kinase 155 Creatine Kinase MB 3.6 Troponin I LESS THAN 0.02 Date/Time Procedure Status Source Growth 09/24/16 17:10 Aerobic Blood Culture Received Blood Peripheral Pending 09/24/16 17:10 Anaerobic Blood Culture Received Blood Peripheral Pending 09/24/16 13:27 Urine Culture Received Urine Clean Catch Pending 09/20/16 21:15 Aerobic Blood Culture - Preliminary Resulted Blood Peripheral NO GROWTH IN 4 DAYS 09/20/16 21:15 Anaerobic Blood Culture - Preliminary Resulted Blood Peripheral NO GROWTH IN 4 DAYS Result Diagram: 09/24/1613 09/24/16512 Assessment and Plan Assessment and Plan NEURO: Bipolar disorder Peripheral neuropathy History of alcohol abuse (sober 17 years) Gabapentin 100 mg by mouth 3 times a day Lamictal 200 mg by mouth daily at bedtime (not for seizures) Trazodone 20 mg by mouth daily at bedtime Effexor 150 mg by mouth daily RESP: ARDS Acute hypoxemic respiratory failure Tobacco abuse Chest x-ray with bilateral infiltrates. Obtain CT chest. Suspect ARDS in patient who likely has a predisposition given prior history.? Secondary to sepsis though sepsis seemed to be resolving. Obtaining repeat CT abd/pelvis to determine if intrabdominal process driving this. No rash or fever to suggest drug reaction. Lasix 20 mg IV. DuoNeb every 4 hours. Every 2 hours as needed. Solu-Medrol 40 mg IV every 6 hours. High flow nasal cannula, flow rate 30 L/m, FiO2 60%. Pulmonology following; Dr. Russell CV: Hyperlipidemia On propranolol 10 every 8 hours 2-D echo 09/20/16ejection fraction 55-60%. Trivial pericardial effusion. GI: Chronic pancreatitis GERD Bowel regimen per protocol PPI as per below Lipase and LFTs unremarkable. FEN/RENAL: Renal insufficiency with unknown baseline creatinine ?CKD stage III Insert Sharma. Monitor intake and output. Monitor electrolyte and replace as indicated. ID: History of IV drug use Escherichia coli UTI Escherichia coli bacteremia 08/01 bottles 09/18, subsequent cx negative Continue Zosyn and vancomycin per ID recommendations. Continue Levaquin for now until obtain Legionella antigen Send sputum culture and consider bronchoscopy with BAL if gets intubated. Follow up repeat blood and urine cultures 09/24. Follow-up hepatitis panel. Patient consents to HIV testing HEME: Leukocytosis with bandemia Anemia ENDO: Hypothyroidism -Synthroid 175 g by mouth daily Diabetes mellitus Received 50 units of sliding scale insulin coverage according to medium dose sliding scale before meals at bedtime. Detemir to 10 units subcutaneous daily at bedtime (first dose administered tonight) . Increase to medium dose sliding scale every 4 hours. PROPH: SCDs and heparin 5000 units subcutaneous every 12 hours for DVT prophylaxis. Protonix 40 mg IV daily for stress ulcer prophylaxis. ACCESS: PIV providing adequate access at this time. Will place central line if she requires intubation or if it is otherwise indicated. Patient monitored closely throughout the night. Diuresed with Lasix at -1 L. Progressive hypoxemia and HFNC titrated up to 100% with sats 87-90. CT chest with diffuse bilateral infiltrates. Renal mass noted. Proceeded with intubation around 5 am. Sedation with propofol and fentanyl. Low tidal volume ventilation 6cc/kg, PEEP 10, permissive hypercapnea. Central line placed. Send sputum culture Discussed with patient early in the evening that she needed to designate healthcare surrogate in the event that she loses capacity. Her mother, Naya Alves is primary surrogate [phone]. Her sister is alternate surrogate, Marybeth Luna [phone] CCT 90 minutes exclusive of separately billable procedures. Alexandra Miller MD September 24, 2016 22:03
[2016-09-24] MEDS ORDERED: FUROSEMIDE 20 MG/2 ML VIAL IV PUSH ONE (22:15)
[2016-09-24] MEDS ORDERED: GLUCAGON 1 MG/ML VIAL OTHER PRN (23:00)
[2016-09-24] MEDS ORDERED: DEXTROSE 50% IN WATER 50 ML VIAL(D50) IV PRN (23:00)
[2016-09-24 23:14] LABS: BETA HCG QUANT LESS THAN 1 MIU/ML (0-5)
[2016-09-24 23:22] LABS: AMPHETAMINE, URINE NEG (NEG); BARBITURATES, URINE NEG (NEG); COCAINE, URINE NEG (NEG)
[2016-09-25] VITALS (20 sets, daily range): BP systolic 81–144; BP diastolic 50–82; PULSE 62–91; RESP 12–26; TEMP 98.6–99.3; O2SAT 89–100
[2016-09-25] MEDS ORDERED: CEFEPIME INJ 2,000 MG in SODIUM CHLORIDE 0.9% INJ 100 ML IV SCH (02:00)
[2016-09-25] MEDS ORDERED: IOHEXOL 350 MG/ML 10 ML VIAL (for RAD DIAG) IV ONE (02:45)
[2016-09-25] MEDS: INSULIN ASPART SUPPLEMENTAL SCALE SQ SCH ×6 (03:00→23:00)
--- NOTE | 2016-09-25 03:01 | RADRPT ---
EXAM DATE/TIME: 09/25/2016 02:33 [facility] COMPARISON: CHEST SINGLE AP, September 24, 2016, 5:26. INDICATIONS : Respiratory distress. IV CONTRAST: 96 cc Omnipaque 350 (iohexol) IV ; Cumulative dose for multiple exams. RADIATION DOSE: 10.96 CTDIvol (mGy) ; Combined studies - Thorax/Abdomen/Pelvis MEDICAL HISTORY : Diverticulosis. Diabetes mellitus type 2. Pancreatitis.Kidney cancer. Thyroid cancer. SURGICAL HISTORY : section. Partial nephrectomy. ENCOUNTER: Initial ACUITY: 1 day PAIN SCALE: 0/10 LOCATION: chest TECHNIQUE: Volumetric scanning of the chest was performed. Using automated exposure control and adjustment of t he mA and/or kV according to patient size, radiation dose was kept as low as reasonably achievable to obtain optimal diagnostic quality images. FINDINGS: LUNGS: Diffuse bilateral airspace disease PLEURA: Small bilateral pleural effusions, larger on the left than the right. MEDIASTINUM: Mediastinal karen enlargement, potentially reactive and mild prominence of the bilateral hilar karen tissues. AXILLAE: Within normal limits. No lymphadenopathy. SKELETAL: Within normal limits for patient age. MISCELLANEOUS: The visualized upper abdominal organs demonstrate no acute abnormality. CONCLUSION: Diffuse airspace disease. Small bilateral pleural effusions. Possibly reactive mediastinal karen enla rgement. Jack Sung MD on September 25, 2016 at 2:56 Board Certified Radiologist. This report was verified electronically.
[2016-09-25] MEDS: PIPERACIL-TAZO 4.5 GM PREMIX 100 ML IV SCH ×4 (03:05→21:32)
[2016-09-25] MEDS: CHLORHEXIDINE GLUCONATE 2 % 1 PACK (2 CLOTHS)(taper/protocol) TOPICAL SCH (03:06)
[2016-09-25] MEDS: MORPHINE SULFATE 4 MG/ML INJ IV PRN (03:06)
[2016-09-25] MEDS: ONDANSETRON HCL 4 MG/2 ML VIAL IVP PRN (03:07)
--- NOTE | 2016-09-25 03:09 | RADRPT ---
EXAM DATE/TIME: 09/25/2016 02:33 [facility] COMPARISON: No previous studies available for comparison. INDICATIONS : Abdominal pain. IV CONTRAST: 96 cc Omnipaque 350 (iohexol) IV ; Cumulative dose for multiple exams. ORAL CONTRAST: Partial prescribed oral contrast ingested. RADIATION DOSE: 10.96 CTDIvol (mGy) ; Combined studies - Thorax/Abdomen/Pelvis MEDICAL HISTORY : Diverticulosis. Diabetes mellitus type 2. Pancreatitis.Kidney cancer. Thyroid cancer. SURGICAL HISTORY : section. Partial nephrectomy. ENCOUNTER: Initial ACUITY: 1 day PAIN SCALE: 5/10 LOCATION: Bilateral abdomen TECHNIQUE: Volumetric scanning of the abdomen and pelvis was performed. Using automated exposure control and ad justment of the mA and/or kV according to patient size, radiation dose was kept as low as reasonably achievable to obtain optimal diagnostic quality images. FINDINGS: LIVER: Homogeneous density without lesion. There is no dilation of the biliary tree. No calcified gallston es. SPLEEN: Normal size without lesion. PANCREAS: Within normal limits. KIDNEYS: Complex nearly 6 cm mass involving the lateral mid to upper pole cortex of the left kidney. 1 cm circ umscribed low density involving the apex of the right kidney and 1 cm low density mass involving the posterior medial mid pole cortex of the right kidney. No hydronephrosis. ADRENAL GLANDS: Within normal limits. VASCULAR: There is no aortic aneurysm. BOWEL/MESENTERY: The stomach, small bowel, and colon demonstrate no acute abnormality. There is no free intraperitone al air or fluid. ABDOMINAL WALL: Edematous RETROPERITONEUM: Mildly prominent left pericardial lymph node in the low abdomen measuring about 16 mm in long axis di mension. BLADDER: Decompressed with Sharma catheter REPRODUCTIVE: Within normal limits. INGUINAL: There is no lymphadenopathy or hernia. MUSCULOSKELETAL: Within normal limits for patient age. CONCLUSION: Bilateral renal masses. Lesion on the left is highly suspicious for renal carcinoma. Jack Sung MD on September 25, 2016 at 2:59 Board Certified Radiologist. This report was verified electronically.
[2016-09-25] MEDS ORDERED: ROCURONIUM INJ 50 MG/5 ML VIAL IV ONE (04:30)
[2016-09-25] MEDS ORDERED: ETOMIDATE 20 MG/10 ML VIAL IV PUSH ONE (04:30)
[2016-09-25] MEDS: LEVOTHYROXINE SODIUM 25 MCG TAB PO SCH (06:00)
[2016-09-25] MEDS: PROPRANOLOL HCL 10 MG TAB PO SCH (06:00)
[2016-09-25] MEDS: LEVOTHYROXINE SODIUM 150 MCG TAB PO SCH (06:00)
[2016-09-25] MEDS: VANCOMYCIN INJ 1,250 MG in SODIUM CHLOR 0.9% 250 ML INJ 250 ML IV SCH ×2 (06:00→23:36)
[2016-09-25 06:10] LABS: BLOOD GAS BASE EXCESS -1.3 mmol/L (-2-2); BLOOD GAS CARBOXYHEMOGLOBIN 0.4 % (0-4); BLOOD GAS HCO3 24 mmol/L (22-26); BLOOD GAS METHEMOGLOBIN 0.9 % (0-2); BLOOD GAS O2 HGB SATURATION 97 % (90-100); BLOOD GAS OXYGEN CONTENT 12.8 Vol % (12.0-20.0); BLOOD GAS PCO2 52 mmHg (38-42); BLOOD GAS PO2 345 mmHg (61-120); BLOOD GAS TOTAL HGB 8.7 G/DL (12.0-16.0); CRITICAL VALUE YES; DRAW SITE RT RADIAL; FIO2 100 %; NUMBER OF ARTERIAL PUNCTURES 1; OXYGEN DEVICE VENTILATOR; STAT NO; TEMP CORR TO 98.6; ULNAR PULSE PRESENT; VENT SETTINGS PRVC22/380/1.0/+10
[2016-09-25 06:19] LABS: AUTOMATED NEUTROPHIL # 14.8 TH/MM3 (1.8-7.7); BASOPHIL % 0.1 % (0.0-2.0); HEMATOCRIT 22.7 % (35.0-46.0); HEMO FLAGS DIFF FINAL; LYMPH % 5.2 % (9.0-44.0); LYMPHOCYTE # 0.8 TH/MM3 (1.0-4.8); MEAN CELL VOLUME 89.5 FL (80.0-100.0); MEAN CORPUSCULAR HEMOGLOBIN 30.8 PG (27.0-34.0); MEAN CORPUSCULAR HGB CONC 34.4 % (32.0-36.0); MONO % 3.1 % (0.0-8.0); NEUT % 91.6 % (16.0-70.0); PLATELET COUNT 275 TH/MM3 (150-450); RED BLOOD COUNT 2.53 MIL/MM3 (4.00-5.30); RED CELL DISTRIBUTION WIDTH 14.1 % (11.6-17.2); WHITE BLOOD COUNT 16.1 TH/MM3 (4.0-11.0)
[2016-09-25] MEDS: methylPREDNISolone SOD SUCC 40 MG/1 ML VIAL IV PUSH SCH ×4 (06:25→23:36)
[2016-09-25] MEDS: fentaNYL DRIP 250 ML IV SCH (06:26)
[2016-09-25] MEDS: PROPOFOL 1000 MG/100 ML INJ 100 ML IV SCH ×4 (06:26→23:39)
[2016-09-25 06:55] LABS: BICARBONATE 27.5 MEQ/L (21.0-32.0); INDIRECT BILIRUBIN 0.3 MG/DL (0.0-0.8); MAGNESIUM 1.4 MG/DL (1.5-2.5); POTASSIUM 3.3 MEQ/L (3.5-5.1); TOTAL BILIRUBIN ADULT 0.7 MG/DL (0.2-1.0)
--- NOTE | 2016-09-25 06:57 | RADRPT ---
EXAM DATE/TIME: 09/25/2016 05:43 [facility] COMPARISON: CHEST SINGLE AP, September 24, 2016, 5:26. INDICATIONS : Central line placement. MEDICAL HISTORY : None. SURGICAL HISTORY : None. ENCOUNTER: Subsequent ACUITY: 4 - 6 days PAIN SCORE: Non-responsive. LOCATION: Bilateral chest FINDINGS: Endotracheal tube is present with tip 4.5 cm above the yolette. A left neck central line descends into SVC. There is no evidence of pneumothorax. Bilateral infiltrates are improved with slight decrease i n confluence. Cardiac contours are grossly stable. CONCLUSION: Satisfactory Central line and ET tube positioning. Slightly improved aeration Jack Sung MD on September 25, 2016 at 6:54 Board Certified Radiologist. This report was verified electronically.
[2016-09-25] MEDS: RESP: ALBUTEROL 2.5 MG/IPRATROPIUM 0.5 MG NEB (SCH) NEB ×4 (07:12→19:32)
--- NOTE | 2016-09-25 07:30 | PD.PROCEDR ---
Procedure Note Procedure PROCEDURE NOTE PROCEDURE: Endotracheal intubation INDICATION: Acute respiratory failure, ARDS DETAILS OF PROCEDURE: The patient was placed in optimal position and preoxygenated with 100% FiO2 via [id number]. Oximeter oxygen saturation of 94% was obtained prior to direct laryngoscopy. The patient was administered etomidate 20 mg IV for sedation, rocuronium 50 mg IV. Direct laryngoscopy was performed with a 3 Spence laryngoscope blade and a grade 3 Cormack-Lehane view was obtained. On single attempt a size 8.0 endotracheal tube was visualized passing through the cords. Correct placement was confirmed with colorimetric CO2 detector. Breath sounds were equal bilaterally. No sounds auscultated over the stomach. The endotracheal tube was secured with a commercial tube hong at a depth of 22 cm at the lips. The patient was connected to the ventilator. The patient tolerated the procedure well without any apparent complication. Oxygen saturations were maintained greater than 86% at all times. Stat chest x-ray was ordered and demonstrates satisfactory endotracheal tube position. Alexandra Miller MD September 25, 2016 07:30
--- NOTE | 2016-09-25 07:33 | PD.PROCEDR ---
Central Line Procedure DATE: 09/25/16 CENTRAL LINE PLACEMENT: Left internal jugular vein. Ultrasound-guided INDICATION: Central venous access CONSENT Informed consent for procedure was obtained from patient after discussion of risks, benefits, alternatives. DESCRIPTION OF THE PROCEDURE The patient was placed in supine position, Trendelenburg. The skin was cleansed with Chloraprep 3. Additional barrier precautions included large sterile drape, sterile gloves, sterile gown, face mask, and hat. 1 % lidocaine was used for local anesthesia. Under direct ultrasound guidance and on single attempt, the vein was accessed with an introducer needle. The guide wire was advanced and the tract was dilated. Using Seldinger technique a 7 [place] 20 cm antimicrobial coated triple-lumen catheter was advanced to a depth of 18 centimeters. The guide wire was removed. All ports had good return of dark venous blood and flushed easily with saline. The central line was secured with 2.0 silk. A sterile dressing with antibiotic disc was applied. ESTIMATED BLOOD LOSS: Minimal COMPLICATIONS: No apparent complications. STAT chest x-ray demonstrates satisfactory central venous line position without apparent complication. Alexandra Miller MD September 25, 2016 07:33
[2016-09-25 08:03] LABS: CALCIUM-PROTEIN CORRECTED 8.2 MG/DL (8.5-10.1)
--- NOTE | 2016-09-25 08:20 | HHI.CCPN ---
Subjective Remarks/Hospital Course 51-year-old female with a past medical history of diabetes, hypothyroidism status post thyroidectomy, hyperlipidemia, chronic pancreatitis, bipolar disorder, recurrent urinary tract infections, remote history of alcohol abuse, history of IV drug use, who is transferred to [facility] due to worsening respiratory status with bilateral pulmonary infiltrates. She was initially admitted on 09/18/16. She states that she began feeling nauseated on the day prior to admission "but I ate anyway". Then felt chills and rather diffuse abdominal pain 9 out of 10 in severity, centrally located and radiating into her back and into her hips. She had multiple episodes of emesis. She denies diarrhea. Fever up to 102.6. She states that this feels different than her prior issues with pancreatitis. She has had recurrent urinary tract infections but states that this also felt different than those and she denied dysuria. Her workup included urinalysis which was consistent with urinary tract infection with culture positive for pansensitive Escherichia coli. She was bacteremic with Escherichia coli in 4 out of 4 blood cultures. She received various beta-lactam antibiotics, all of which would appropriately cover cultured organism (Rocephin 09/18-09/19, unasyn 09/19, Cefepime 09/19-09/22). Blood cultures cleared on 09/19, 09/20 and she defervesced 09/23. CT C/A/P on 09/19 was negative. Lumbar MRI negative 09/21 for epidural abscess/ osteo/ diskitis. CXR on 09/18 was clear and lung geronimo on the CT from 09/19 also clear. She has been on NC ~ 4L. CXR on 09/23 showed bilateral infiltrates, perihilar and bibasilar. She received Lasix 20 mg IV on 09/23. Repeat CXR 09/24 worse infiltrates. She is now on NR. She continues to complain of abdominal pain, about the same as since admission, possibly a little better. She has been started on zosyn and vancomycin per ID and repeat CT abd/pelvis is ordered. Patient has had Echo with EF 55-60%. Troponin negative. Process appears c/w ARDS despite noted BNP 322. Patient also has had 2 prior prolonged hospitalizations for mechanical ventilation with "bilateral pneumonia" which may have been ARDS. 09/25 Patient is sedated with Diprivan, Fentanyl and intubated. Afebrile. CXR this morning showed improved aeration of her lungs. Objective Vital Signs Date Time Temp Pulse Resp B/P Pulse Ox O2 Delivery O2 Flow Rate FiO2 09/25/16 07:12 99 65 09/25/16 06:00 70 09/25/16 04:00 99.2 17 104/57 09/24/16 23:48 High Flow Nasal Cannula 25.00 Intake and Output 09/24/16 09/24/16 09/25/16 08:00 16:00 00:00 Intake Total 450 ml 480 ml 1639 ml Output Total 580 ml 2500 ml Balance 450 ml -100 ml -861 ml Result Diagram: 09/25/16 0550 09/25/16 0550 Other Results Laboratory Tests Test 09/24/16 09/24/16 09/24/16 09/24/16 09:00 13:27 17:05 22:20 Blood Gas Puncture Site LT RADIAL Blood Gas Patient Temperature 98.6 Blood Gas HCO3 17 mmol/L Blood Gas Base Excess -8.4 mmol/L Blood Gas Oxygen Saturation 92 % Arterial Blood pH 7.31 Arterial Blood Partial 34 mmHg Pressure CO2 Arterial Blood Partial 75 mmHg Pressure O2 Arterial Blood Oxygen Content 12.0 Vol % Arterial Blood 1.9 % Carboxyhemoglobin Arterial Blood Methemoglobin 1.1 % Blood Gas Hemoglobin 9.2 G/DL Oxygen Delivery Device NONREBREATHER Blood Gas Liter Flow 15 L/M Blood Gas Inspired Oxygen 100 % Urine Color LIGHT-YELLOW Urine Turbidity CLEAR Urine pH 5.0 Urine Specific Selmer 1.006 Urine Protein TRACE mg/dL Urine Glucose (UA) 70 mg/dL Urine Ketones 10 mg/dL Urine Occult Blood SMALL Urine Nitrite NEG Urine Bilirubin NEG Urine Urobilinogen LESS THAN 2.0 MG/DL Urine Leukocyte Esterase SMALL Urine RBC LESS THAN 1 /hpf Urine WBC 9 /hpf Urine Squamous Epithelial <1 /hpf Cells Urine Hyaline Casts 3 /lpf Urine Mucus FEW /lpf Microscopic Urinalysis Comment Urine Opiates Screen POS Urine Barbiturates Screen NEG Urine Amphetamines Screen NEG Urine Benzodiazepines Screen NEG Urine Cocaine Screen NEG Urine Cannabinoids Screen POS Lactic Acid Level 1.4 mmol/L 1.6 mmol/L Total Creatine Kinase 155 U/L Creatine Kinase MB 3.6 NG/ML Troponin I LESS THAN 0.02 NG/ML Lipase 30 U/L Human Chorionic Gonadotropin, LESS THAN 1 Quant MIU/ML B-Hydroxybutyrate 4.85 MMOL/L Salicylates Level 2.3 MG/DL Test 09/24/16 09/25/16 09/25/16 23:20 05:45 05:50 Nasal Screen MRSA (PCR) MRSA NOT DETECTED Blood Gas Puncture Site RT RADIAL Blood Gas Patient Temperature 98.6 Blood Gas HCO3 24 mmol/L Blood Gas Base Excess -1.3 mmol/L Blood Gas Oxygen Saturation 97 % Arterial Blood pH 7.29 Arterial Blood Partial 52 mmHg Pressure CO2 Arterial Blood Partial 345 mmHg Pressure O2 Arterial Blood Oxygen Content 12.8 Vol % Arterial Blood 0.4 % Carboxyhemoglobin Arterial Blood Methemoglobin 0.9 % Blood Gas Hemoglobin 8.7 G/DL Oxygen Delivery Device VENTILATOR Blood Gas Ventilator Setting PRVC22/380/1.0/+10 Blood Gas Inspired Oxygen 100 % White Blood Count 16.1 TH/MM3 Red Blood Count 2.53 MIL/MM3 Hemoglobin 7.8 GM/DL Hematocrit 22.7 % Mean Corpuscular Volume 89.5 FL Mean Corpuscular Hemoglobin 30.8 PG Mean Corpuscular Hemoglobin 34.4 % Concent Red Cell Distribution Width 14.1 % Platelet Count 275 TH/MM3 Mean Platelet Volume 8.1 FL Neutrophils (%) (Auto) 91.6 % Lymphocytes (%) (Auto) 5.2 % Monocytes (%) (Auto) 3.1 % Eosinophils (%) (Auto) 0.0 % Basophils (%) (Auto) 0.1 % Neutrophils # (Auto) 14.8 TH/MM3 Lymphocytes # (Auto) 0.8 TH/MM3 Monocytes # (Auto) 0.5 TH/MM3 Eosinophils # (Auto) 0.0 TH/MM3 Basophils # (Auto) 0.0 TH/MM3 CBC Comment DIFF FINAL Differential Comment Sodium Level 139 MEQ/L Potassium Level 3.3 MEQ/L Chloride Level 103 MEQ/L Carbon Dioxide Level 27.5 MEQ/L Anion Gap 9 MEQ/L Blood Urea Nitrogen 18 MG/DL Creatinine 1.11 MG/DL Estimat Glomerular Filtration 52 ML/MIN Rate Random Glucose 142 MG/DL Calcium Level 7.1 MG/DL Protein Corrected Calcium 8.2 MG/DL Magnesium Level 1.4 MG/DL Total Bilirubin 0.7 MG/DL Direct Bilirubin 0.4 MG/DL Indirect Bilirubin 0.3 MG/DL Aspartate Amino Transf 29 U/L (AST/SGOT) Alanine Aminotransferase 31 U/L (ALT/SGPT) Alkaline Phosphatase 114 U/L Total Protein 5.1 GM/DL Albumin 1.8 GM/DL Imaging Last Impressions Chest X-Ray 09/25/16 0000 Signed Impressions: Service Date/Time: Sunday, September 25, 2016 05:43 - CONCLUSION: Satisfactory Central line and ET tube positioning. Slightly improved aeration Jack Sung MD Abdomen/Pelvis CT 09/24/163 Signed Impressions: Service Date/Time: Sunday, September 25, 2016 02:33 - CONCLUSION: Bilateral renal masses. Lesion on the left is highly suspicious for renal carcinoma. Jack Sung MD Chest CT 09/24/16 0000 Signed Impressions: Service Date/Time: Sunday, September 25, 2016 02:33 - CONCLUSION: Diffuse airspace disease. Small bilateral pleural effusions. Possibly reactive mediastinal karen enlargement. Jack Sung MD Lumbar Spine MRI 09/21/16 0000 Signed Impressions: Service Date/Time: August 09:54 - CONCLUSION: 1. At L4-5 there is focally advanced degenerative disc disease with endplate marrow changes, marked disc space narrowing and mild enhancement on both sides of the disc interspace post contrast. There is a moderate-sized disc protrusion that results in a moderate stenosis of the lateral recesses. The degree of enhancement is less than would be expected with a discitis or osteomyelitis. No evidence for epidural abscess. No acute fracture or spondylolisthesis. 2. At L3-4 there is a moderate-sized broad-based disc protrusion, right worse than left resulting in a right-sided lateral recess stenosis and mild left lateral recess stenosis. Nestor Rodriguez MD Objective Remarks GENERAL: Patient is 51 yo intubated and sedated SKIN: Warm and dry. HEAD: Normocephalic. EYES: No scleral icterus. No injection or drainage. NECK: Supple, trachea midline. No JVD or lymphadenopathy. CARDIOVASCULAR: Regular rate and rhythm without murmurs, gallops, or rubs. RESPIRATORY: Breath sounds equal bilaterally. No accessory muscle use. GASTROINTESTINAL: Abdomen soft, non-tender, nondistended. MUSCULOSKELETAL: No cyanosis, or edema. Neuro: Sedated. A/P Assessment and Plan 1)VDRF 2)Diffuse b/l pulm infiltartes 3)Leukocytosis 4)ANDREW..improving 5)Anemia 6)E.coli bacteremia 7)UTI 8)Bipolar disorder 9)Diabetes mellitus 10)Chronic pancreatitis 11)GERD 12)Hyperlipidemia 13)Hypothyroidism 14)Tobacco abuse, History of alcohol abuse 15)History of IV drug use 16)B/l renal masses NEURO: Bipolar disorder Peripheral neuropathy On Diprivan, Fentanyl infusion for sedation, daily sedation vacation when appropriate RESP: Continue with vent support keep sat >92% On PRVC/AC RR 22, TV 380, IT:1.0, PEEP:10, FIO2 70%. Decrease FIO2 as harry, increase RR 26 and repeat ABG Bronchodilators, ICU vent bundle. On Solumederol 40mg Q6 CV: Hyperlipidemia Monitor HR and BP keep MAP>65mmHg Echo showed EF 55-60%. Lactic acid: 1.6 GI: Chronic pancreatitis GERD Bowel regimen per protocol Start tube feeds- Glucerna 1.5 with goal rate 45ml/hr, On Protonix 40mg daily FEN/RENAL: Monitor renal function, I/O;s, electrolytes replacement per protocol. Will need K, Mg replacement today On Lasix 40mg BID Will need CT guided needle biopsy of left renal mass when stable r/o malignancy ID: Continue with abx (Vanco, Zosyn, Levaquin) ID is following. Monitor for signs of infections ( Fever, WBC) Follow up on blood and urine cxs from 09/24 Strep pneumonia and Legionella urinary Ag pending 09/18 BC, urine cx: E.coli 09/19,09/20: Blood cultures: No growth HEME: Monitor CBC ENDO: Hypothyroidism -Synthroid 175 g by mouth daily Diabetes mellitus On SSI medium scale and Levemir insulin 10u qhs PROPH: SCDs and heparin 5000 units subcutaneous every 12 hours for DVT prophylaxis. Protonix 40 g IV daily for stress ulcer prophylaxis. ACCESS: Left IJ CVP placed 09/25 CCT 30 mins Capri Parker MD September 25, 2016 08:20
[2016-09-25] MEDS ORDERED: MAGNESIUM OXIDE 400 MG TAB PO PRN (08:30)
[2016-09-25] MEDS ORDERED: MAGNESIUM SULFATE INJ 4 GM in SODIUM CHLORIDE 0.9% INJ 92 ML IV PRN (08:30)
[2016-09-25] MEDS ORDERED: POTASSIUM CHLORIDE 25 MEQ EFFERVESCENT TAB PO PRN (08:30)
[2016-09-25] MEDS ORDERED: SODIUM PHOSPHATE INJ 30 MMOL in SODIUM CHLOR 0.9% 250 ML INJ 240 ML IV PRN (08:30)
[2016-09-25] MEDS ORDERED: MAGNESIUM SULFATE INJ 2 GM in SODIUM CHLORIDE 0.9% INJ 96 ML IV PRN (08:30)
[2016-09-25] MEDS ORDERED: POTASSIUM CHLOR 20 MEQ PREMIX 100 ML IV PRN ×2 (08:30)
[2016-09-25] MEDS ORDERED: POTASSIUM PHOSPHATE MONOBASIC 500 MG TAB PO/TUBE PRN (08:30)
[2016-09-25] MEDS ORDERED: POTASSIUM CHLOR 40 MEQ PREMIX 100 ML IV PRN (08:30)
[2016-09-25] MEDS: SODIUM CHLORIDE 0.9% FLUSH 10 ML FLUSH IV FLUSH SCH ×2 (09:00→21:33)
[2016-09-25] MEDS: hydrOXYzine PAMOATE 25 MG CAP PO SCH ×2 (09:00→21:33)
[2016-09-25] MEDS: REMOVE OLD PATCH T-DERMAL SCH (09:00)
[2016-09-25] MEDS: NICOTINE 14 MG/24 HR PATCH T-DERMAL SCH (10:27)
[2016-09-25] MEDS: HEPARIN SODIUM - SQ 10,000 UNITS/ML VIAL SQ SCH ×2 (10:27→21:34)
[2016-09-25] MEDS: FUROSEMIDE 40 MG/4 ML VIAL IV PUSH SCH ×2 (10:28→18:08)
[2016-09-25] MEDS: DOCUSATE SODIUM 100 MG CAP PO SCH ×2 (10:28→21:32)
[2016-09-25] MEDS: GABAPENTIN 100 MG CAP PO SCH ×3 (10:28→18:08)
[2016-09-25] MEDS: VENLAFAXINE HCL XR 75 MG CAP PO SCH (10:32)
--- NOTE | 2016-09-25 11:28 | RADRPT ---
EXAM DATE/TIME: 09/25/2016 10:29 [facility] COMPARISON: CT ABDOMEN & PELVIS W/O CONTRAST, September 19, 2016, 6:13. CT ABDOMEN & PELVIS W CONTRAST, September 25, 2016, 2:33. INDICATIONS : Evaluate dobhoff placement. MEDICAL HISTORY : None. SURGICAL HISTORY : None. ENCOUNTER: Initial ACUITY: 1 day PAIN SCORE: 0/10 LOCATION: Abdomen FINDINGS: 2 supine frontal views the abdomen demonstrate feeding tube present with a distal tip just beyond the GE junction the gastric cardia region. Liver shadow remains mildly enlarged. There is contrast mater ial within the colon but no signs of obstruction are present. There is no acute osseous abnormality. Airspace consolidation is present at the lung bases. CONCLUSION: Feeding tube distal tip is in the gastric cardia region, barely beyond the GE junction. This should b e advanced prior to use. Jack Hinojosa MD on September 25, 2016 at 11:22 Board Certified Radiologist. This report was verified electronically.
[2016-09-25 12:43] LABS: BLOOD GAS BASE EXCESS -4.9 mmol/L (-2-2); BLOOD GAS CARBOXYHEMOGLOBIN 1.4 % (0-4); BLOOD GAS HCO3 21 mmol/L (22-26); BLOOD GAS METHEMOGLOBIN 1.7 % (0-2); BLOOD GAS O2 HGB SATURATION 94 % (90-100); BLOOD GAS OXYGEN CONTENT 10.4 Vol % (12.0-20.0); BLOOD GAS PCO2 45 mmHg (38-42); BLOOD GAS PO2 96 mmHg (61-120); BLOOD GAS TOTAL HGB 7.8 G/DL (12.0-16.0); CRITICAL VALUE YES; OXYGEN DEVICE VENTILATOR; TEMP CORR TO 98.6
[2016-09-25 12:44] LABS: DRAW SITE LT RADIAL; FIO2 40 %; NUMBER OF ARTERIAL PUNCTURES 1; STAT NO; ULNAR PULSE PRESENT
--- NOTE | 2016-09-25 17:02 | HHI.PR ---
Subjective Remarks 51 YOWF with VDRF,Bilat Infilt, E.coli UTI On Vent Sedated with Diprivan and Fentanyl Minimal trach secretions Objective Vital Signs Vital Signs Date Time Temp Pulse Resp B/P Pulse Ox O2 Delivery O2 Flow Rate FiO2 09/25/16 16:03 99 40 09/25/16 16:00 74 09/25/16 16:00 100 09/25/16 14:00 65 09/25/16 13:02 98 40 09/25/16 12:00 100 09/25/16 12:00 68 09/25/16 11:05 96 40 09/25/16 10:00 62 09/25/16 09:48 100 60 09/25/16 08:00 82 09/25/16 08:00 100 09/25/16 07:12 99 65 09/25/16 06:00 70 09/25/16 05:30 100 09/25/16 05:00 100 100 09/25/16 04:00 99.2 77 17 104/57 89 09/25/16 04:00 77 09/25/16 02:00 86 09/25/16 00:00 99.1 91 12 128/64 91 09/25/16 00:00 91 09/24/16 23:48 96 High Flow Nasal Cannula 25.00 60 09/24/16 22:00 104 09/24/16 21:07 99.6 106 20 155/75 96 09/24/16 20:03 112 09/24/16 20:00 97.2 109 21 157/79 97 09/24/16 19:30 Partial Non-Rebreather 15.00 I/O 09/24/16 09/24/16 09/24/16 09/25/16 09/25/16 09/25/16 06:59 14:59 22:59 06:59 14:59 22:59 Intake Total 450 ml 480 ml 1639 ml 447 ml 891 ml Output Total 580 ml 2500 ml 500 ml 950 ml Balance 450 ml -100 ml -861 ml -53 ml -59 ml Intake Oral 450 ml 480 ml 480 ml 240 ml IV Total 1159 ml 207 ml 665 ml Tube Feeding 226 ml Output Urine Total 580 ml 2500 ml 500 ml 950 ml # Voids 2 2 # Bowel Movements 1 0 0 Result Diagram: 09/25/16 0550 09/25/16 0550 Objective Remarks GENERAL: MBMN WF, on Vent SKIN: Warm and dry. HEAD: Normocephalic. EYES: No scleral icterus. No injection or drainage. NECK: Supple, trachea midline. No JVD or lymphadenopathy. CARDIOVASCULAR: Regular rate and rhythm without murmurs, gallops, or rubs. RESPIRATORY: Breath sounds equal bilaterally. No accessory muscle use. GASTROINTESTINAL: Abdomen soft, non-tender, nondistended. MUSCULOSKELETAL: No cyanosis, or edema. BACK: Nontender without obvious deformity. No CVA tenderness. A/P Assessment and Plan VDRF Bilat Infilt E.coli UTI Ch Pain PLAN: Vent support Sedation with Fentanyl and Diprivan Abx Isabelo Levalexandra and Zosyn TF Oneal Russell MD September 25, 2016 17:02
--- NOTE | 2016-09-25 17:05 | HHI.IDPN ---
Subjective Subjective Remarks ID X cover for Dr Gibson chart reviewed; dw Dr Underwood Now intubated, on mech vent'n not much but strange appearing ETT secretions with dark filaments - per RN BP borderline off pressors afebrile Antibiotics levaquine zosyn vanco Lines Line sites with no e/o infection Past Medical History Past Medical History Diabetes Degenerative disc disease Pancreatitis Recurrent UTIs Past Surgical History Left kidney cancer status post surgery Thyroid cancer status post thyroidectomy. Allergies: Coded Allergies: Sulfa (Verified Allergy, Severe, Hives, 09/18/16) Objective . Vital Signs Date Time Temp Pulse Resp B/P Pulse Ox O2 Delivery O2 Flow Rate FiO2 09/25/16 16:03 99 40 09/25/16 16:00 74 09/25/16 16:00 100 09/25/16 14:00 65 09/25/16 13:02 98 40 09/25/16 12:00 100 09/25/16 12:00 68 09/25/16 11:05 96 40 09/25/16 10:00 62 09/25/16 09:48 100 60 09/25/16 08:00 82 09/25/16 08:00 100 09/25/16 07:12 99 65 09/25/16 06:00 70 09/25/16 05:30 100 09/25/16 05:00 100 100 09/25/16 04:00 99.2 77 17 104/57 89 09/25/16 04:00 77 09/25/16 02:00 86 09/25/16 00:00 99.1 91 12 128/64 91 09/25/16 00:00 91 09/24/16 23:48 96 High Flow Nasal Cannula 25.00 60 09/24/16 22:00 104 09/24/16 21:07 99.6 106 20 155/75 96 09/24/16 20:03 112 09/24/16 20:00 97.2 109 21 157/79 97 09/24/16 19:30 Partial Non-Rebreather 15.00 09/24/16 09/24/16 09/25/16 15:00 23:00 07:00 Intake Total 480 ml 1639 ml 447 ml Output Total 580 ml 2500 ml 500 ml Balance -100 ml -861 ml -53 ml Intake Oral 480 ml 480 ml 240 ml IV Total 1159 ml 207 ml Output Urine Total 580 ml 2500 ml 500 ml # Voids 2 # Bowel Movements 1 0 0 . Laboratory Tests Test 09/24/16 09/25/16 05:13 05:50 White Blood Count 13.1 TH/MM3 16.1 TH/MM3 Red Blood Count 2.96 MIL/MM3 2.53 MIL/MM3 Hemoglobin 8.6 GM/DL 7.8 GM/DL Hematocrit 27.8 % 22.7 % Mean Corpuscular Volume 94.1 FL 89.5 FL Mean Corpuscular Hemoglobin 29.2 PG 30.8 PG Mean Corpuscular Hemoglobin 31.1 % 34.4 % Concent Red Cell Distribution Width 14.1 % 14.1 % Platelet Count 235 TH/MM3 275 TH/MM3 Mean Platelet Volume 8.7 FL 8.1 FL Neutrophils (%) (Auto) 81.4 % 91.6 % Lymphocytes (%) (Auto) 9.3 % 5.2 % Monocytes (%) (Auto) 8.8 % 3.1 % Eosinophils (%) (Auto) 0.1 % 0.0 % Basophils (%) (Auto) 0.4 % 0.1 % Neutrophils # (Auto) 10.7 TH/MM3 14.8 TH/MM3 Lymphocytes # (Auto) 1.2 TH/MM3 0.8 TH/MM3 Monocytes # (Auto) 1.2 TH/MM3 0.5 TH/MM3 Eosinophils # (Auto) 0.0 TH/MM3 0.0 TH/MM3 Basophils # (Auto) 0.1 TH/MM3 0.0 TH/MM3 CBC Comment AUTO DIFF DIFF FINAL Differential Total Cells 100 Counted Neutrophils % (Manual) 74 % Band Neutrophils % 13 % Lymphocytes % 4 % Monocytes % 9 % Neutrophils # (Manual) 11.4 TH/MM3 Differential Comment FINAL DIFF MANUAL Platelet Estimate NORMAL Platelet Morphology Comment NORMAL Laboratory Tests Test 09/24/16 09/24/16 09/24/16 09/25/16 05:13 17:05 22:20 05:50 Sodium Level 139 MEQ/L 139 MEQ/L Potassium Level 4.2 MEQ/L 3.3 MEQ/L Chloride Level 105 MEQ/L 103 MEQ/L Carbon Dioxide Level 15.2 MEQ/L 27.5 MEQ/L Anion Gap 19 MEQ/L 9 MEQ/L Blood Urea Nitrogen 16 MG/DL 18 MG/DL Creatinine 1.05 MG/DL 1.11 MG/DL Estimat Glomerular Filtration 56 ML/MIN 52 ML/MIN Rate Random Glucose 314 MG/DL 142 MG/DL Calcium Level 7.7 MG/DL 7.1 MG/DL B-Type Natriuretic Peptide 322 PG/ML Lactic Acid Level 1.4 mmol/L 1.6 mmol/L Total Creatine Kinase 155 U/L Creatine Kinase MB 3.6 NG/ML Troponin I LESS THAN 0.02 NG/ML Lipase 30 U/L Human Chorionic Gonadotropin, LESS THAN 1 Quant MIU/ML Protein Corrected Calcium 8.2 MG/DL Phosphorus Level 2.4 MG/DL Magnesium Level 1.4 MG/DL Total Bilirubin 0.7 MG/DL Direct Bilirubin 0.4 MG/DL Indirect Bilirubin 0.3 MG/DL Aspartate Amino Transf 29 U/L (AST/SGOT) Alanine Aminotransferase 31 U/L (ALT/SGPT) Alkaline Phosphatase 114 U/L Total Protein 5.1 GM/DL Albumin 1.8 GM/DL Microbiology Date/Time Procedure Status Source Growth 09/24/16 13:27 Urine Culture - Preliminary Resulted Urine Clean Catch NO GROWTH IN 24 HOURS. 09/24/16 13:27 Legionella Antigen - Final Complete Urine Catheterized Urine PRESUMPTIVE NEGATIVE FOR LEGIONELLA P... 09/24/16 13:27 Streptococcus pneumoniae Antigen (M - Final Complete Urine Catheterized Urine PRESUMPTIVE NEGATIVE FOR STREPTOCOCCU... 09/24/16 17:05 Aerobic Blood Culture - Preliminary Resulted Blood Peripheral NO GROWTH IN 1 DAY 09/24/16 17:05 Anaerobic Blood Culture - Preliminary Resulted Blood Peripheral NO GROWTH IN 1 DAY 09/24/16 17:10 Aerobic Blood Culture - Preliminary Resulted Blood Peripheral NO GROWTH IN 1 DAY 09/24/16 17:10 Anaerobic Blood Culture - Preliminary Resulted Blood Peripheral NO GROWTH IN 1 DAY 09/25/16 09:20 Gram Stain Received Sputum Endotracheal Pending 09/25/16 09:20 Sputum Culture Received Sputum Endotracheal Pending Imaging Last Impressions Chest X-Ray 09/25/16 0000 Signed Impressions: Service Date/Time: Sunday, September 25, 2016 05:43 - CONCLUSION: Satisfactory Central line and ET tube positioning. Slightly improved aeration Jack Sung MD Abdomen X-Ray 09/25/16 0000 Signed Impressions: Service Date/Time: Sunday, September 25, 2016 10:29 - CONCLUSION: Feeding tube distal tip is in the gastric cardia region, barely beyond the GE junction. This should be advanced prior to use. Jack Hinojosa MD Abdomen/Pelvis CT 09/24/16 2133 Signed Impressions: Service Date/Time: Sunday, September 25, 2016 02:33 - CONCLUSION: Bilateral renal masses. Lesion on the left is highly suspicious for renal carcinoma. Jack Sung MD Chest CT 09/24/16 0000 Signed Impressions: Service Date/Time: Sunday, September 25, 2016 02:33 - CONCLUSION: Diffuse airspace disease. Small bilateral pleural effusions. Possibly reactive mediastinal karen enlargement. Jack Sung MD Lumbar Spine MRI 09/21/16 0000 Signed Impressions: Service Date/Time: August 09:54 - CONCLUSION: 1. At L4-5 there is focally advanced degenerative disc disease with endplate marrow changes, marked disc space narrowing and mild enhancement on both sides of the disc interspace post contrast. There is a moderate-sized disc protrusion that results in a moderate stenosis of the lateral recesses. The degree of enhancement is less than would be expected with a discitis or osteomyelitis. No evidence for epidural abscess. No acute fracture or spondylolisthesis. 2. At L3-4 there is a moderate-sized broad-based disc protrusion, right worse than left resulting in a right-sided lateral recess stenosis and mild left lateral recess stenosis. Nestor Rodriguez MD Physical Exam GENERAL: sedated. No distress SKIN: No rashes, ecchymoses or lesions. Cool and dry. HEAD: Atraumatic. Normocephalic. No temporal or scalp tenderness. EYES: No scleral icterus. No injection or drainage. ENT: Nose without bleeding, purulent drainage or septal hematoma. Oralm mucosae without erythema, tonsillar hypertrophy or exudate. Uvula midline. Airway patent. NECK: Trachea midline. CARDIOVASCULAR: RRR without murmur. RESPIRATORY: Clear to auscultation. Breath sounds equal bilaterally. No wheezes , rales, or rhonchi. GASTROINTESTINAL: Abdomen soft, no reaction to palpapation; midly distended, no guarding or rebound No hepatomegaly MUSCULOSKELETAL: Extremities without clubbing, cyanosis, or edema. No joint tenderness, effusion, or edema noted. No calf tenderness. Negative Homans sign bilaterally. NEUROLOGICAL:sedated Psych: unable to assess IV line sites with no e/o infection. Assessment & Plan Remarks Sepsis present on admission E.coli bacteremia: 2/2 UTI, pyelonephritis. : resolved L kidney renal carcinoma DM 2 uncontrolled. recurrent UTI by history, no renal stones. New onset hypoxia with pulm infiltrates,bandemia and acute VDRF - ? ARDS 2/2 new/ worsening infx - nopn cardiogenic ( BNP is clearly above nl), troponin neg; recent echo with nl EF Previous abx used: cefepime, levaquine Recs: Cont Levaquin, zosyn and vancomycin fu P blood and urine clx fu P studfies Moira Jaime RN, MD September 25, 2016 17:05
[2016-09-25] MEDS: INSULIN DETEMIR 100 UNITS/ML VIAL SQ SCH (21:00)
[2016-09-25] MEDS: PANTOPRAZOLE SODIUM 40 MG VIAL IV PUSH SCH (21:32)
[2016-09-25] MEDS: traZODone HCL 100 MG TAB PO SCH (21:33)
[2016-09-25] MEDS: lamoTRIgine 100 MG TAB PO SCH (21:43)
[2016-09-25] MEDS: LEVOFLOXACIN 750 MG PREMIX INJ 150 ML IV SCH (22:00)
[2016-09-26] VITALS (47 sets, daily range): BP systolic 111–144; BP diastolic 53–75; PULSE 62–107; RESP 13–38; TEMP 98.2–99; O2SAT 90–100
[2016-09-26] MEDS: PIPERACIL-TAZO 4.5 GM PREMIX 100 ML IV SCH ×4 (02:34→19:49)
[2016-09-26] MEDS: PROPOFOL 1000 MG/100 ML INJ 100 ML IV SCH ×2 (02:35→04:30)
[2016-09-26] MEDS: INSULIN ASPART SUPPLEMENTAL SCALE SQ SCH ×6 (03:00→23:00)
[2016-09-26] MEDS: CHLORHEXIDINE GLUCONATE 2 % 1 PACK (2 CLOTHS)(taper/protocol) TOPICAL SCH (04:00)
[2016-09-26] MEDS: LEVOTHYROXINE SODIUM 150 MCG TAB PO SCH (04:30)
[2016-09-26] MEDS: methylPREDNISolone SOD SUCC 40 MG/1 ML VIAL IV PUSH SCH ×4 (04:30→23:14)
[2016-09-26] MEDS: LEVOTHYROXINE SODIUM 25 MCG TAB PO SCH (04:30)
[2016-09-26] MEDS: fentaNYL DRIP 250 ML IV SCH (04:30)
--- NOTE | 2016-09-26 05:13 | RADRPT ---
EXAM DATE/TIME: 09/26/2016 03:51 [facility] COMPARISON: CHEST SINGLE AP, September 25, 2016, 5:43. INDICATIONS : Shortness of breath. MEDICAL HISTORY : None. SURGICAL HISTORY : None. ENCOUNTER: Subsequent ACUITY: 1 week PAIN SCORE: 0/10 LOCATION: Bilateral chest FINDINGS: Endotracheal tube nasogastric tube and left neck central line are stable in good position. There has been improvement in aeration with decrease in confluence of bilateral infiltrates. Cardiac contours a re stable. CONCLUSION: Improving aeration Jack Sung MD on September 26, 2016 at 5:10 Board Certified Radiologist. This report was verified electronically.
[2016-09-26] MEDS: RESP: ALBUTEROL 2.5 MG/IPRATROPIUM 0.5 MG NEB (SCH) NEB ×4 (07:40→20:10)
[2016-09-26] MEDS: FUROSEMIDE 40 MG/4 ML VIAL IV PUSH SCH (07:53)
[2016-09-26] MEDS: VENLAFAXINE HCL XR 75 MG CAP PO SCH (07:53)
[2016-09-26] MEDS: HEPARIN SODIUM - SQ 10,000 UNITS/ML VIAL SQ SCH ×2 (07:53→19:50)
[2016-09-26] MEDS: hydrOXYzine PAMOATE 25 MG CAP PO SCH ×2 (07:53→19:51)
[2016-09-26] MEDS: REMOVE OLD PATCH T-DERMAL SCH (07:54)
[2016-09-26] MEDS: GABAPENTIN 100 MG CAP PO SCH ×3 (07:54→18:03)
[2016-09-26] MEDS: NICOTINE 14 MG/24 HR PATCH T-DERMAL SCH (07:54)
[2016-09-26] MEDS: SODIUM CHLORIDE 0.9% FLUSH 10 ML FLUSH IV FLUSH SCH ×2 (07:55→19:51)
[2016-09-26] MEDS: DOCUSATE SODIUM 100 MG CAP PO SCH ×2 (08:00→19:51)
--- NOTE | 2016-09-26 08:53 | HHI.CCPN ---
Subjective Remarks/Hospital Course 51-year-old female with a past medical history of diabetes, hypothyroidism status post thyroidectomy, hyperlipidemia, chronic pancreatitis, bipolar disorder, recurrent urinary tract infections, remote history of alcohol abuse, history of IV drug use, who is transferred to [facility] [place] due to worsening respiratory status with bilateral pulmonary infiltrates. She was initially admitted on 09/18/16. She states that she began feeling nauseated on the day prior to admission "but I ate anyway". Then felt chills and rather diffuse abdominal pain 9 out of 10 in severity, centrally located and radiating into her back and into her hips. She had multiple episodes of emesis. She denies diarrhea. Fever up to 102.6. She states that this feels different than her prior issues with pancreatitis. She has had recurrent urinary tract infections but states that this also felt different than those and she denied dysuria. Her workup included urinalysis which was consistent with urinary tract infection with culture positive for pansensitive Escherichia coli. She was bacteremic with Escherichia coli in 4 out of 4 blood cultures. She received various beta-lactam antibiotics, all of which would appropriately cover cultured organism (Rocephin 09/18-09/19, unasyn 09/19, Cefepime 09/19-09/22). Blood cultures cleared on 09/19, 09/20 and she defervesced 09/23. CT C/A/P on 09/19 was negative. Lumbar MRI negative 09/21 for epidural abscess/ osteo/ diskitis. CXR on 09/18 was clear and lung geronimo on the CT from 09/19 also clear. She has been on NC ~ 4L. CXR on 09/23 showed bilateral infiltrates, perihilar and bibasilar. She received Lasix 20 mg IV on 09/23. Repeat CXR 09/24 worse infiltrates. She is now on NR. She continues to complain of abdominal pain, about the same as since admission, possibly a little better. She has been started on zosyn and vancomycin per ID and repeat CT abd/pelvis is ordered. Patient has had Echo with EF 55-60%. Troponin negative. Process appears c/w ARDS despite noted BNP 322. Patient also has had 2 prior prolonged hospitalizations for mechanical ventilation with "bilateral pneumonia" which may have been ARDS. 09/25 Patient is sedated with Diprivan, Fentanyl and intubated. Afebrile. CXR this morning showed improved aeration of her lungs. 09/26 Patient remains sedated and intubated. Afebrile, Objective Vital Signs Date Time Temp Pulse Resp B/P Pulse Ox O2 Delivery O2 Flow Rate FiO2 09/26/16 06:00 62 09/26/16 04:03 99 40 09/26/16 04:00 99.0 26 137/74 09/24/16 23:48 High Flow Nasal Cannula 25.00 Intake and Output 09/25/16 09/25/16 09/26/16 08:00 16:00 00:00 Intake Total 447 ml 891 ml 941 ml Output Total 500 ml 950 ml 2050 ml Balance -53 ml -59 ml -1109 ml Result Diagram: 09/25/16 0550 09/25/16 0550 Other Results Laboratory Tests Test 09/25/16 09/25/16 09:21 12:38 Urine Eosinophils NONE SEEN /HPF Blood Gas Puncture Site LT RADIAL Blood Gas Patient Temperature 98.6 Blood Gas HCO3 21 mmol/L Blood Gas Base Excess -4.9 mmol/L Blood Gas Oxygen Saturation 94 % Arterial Blood pH 7.28 Arterial Blood Partial 45 mmHg Pressure CO2 Arterial Blood Partial 96 mmHg Pressure O2 Arterial Blood Oxygen Content 10.4 Vol % Arterial Blood 1.4 % Carboxyhemoglobin Arterial Blood Methemoglobin 1.7 % Blood Gas Hemoglobin 7.8 G/DL Oxygen Delivery Device VENTILATOR Blood Gas Ventilator Setting Blood Gas Inspired Oxygen 40 % Imaging Last Impressions Chest X-Ray 09/26/16 0000 Signed Impressions: Service Date/Time: Monday, September 26, 2016 03:51 - CONCLUSION: Improving aeration Jack Sung MD Abdomen X-Ray 09/25/16 0000 Signed Impressions: Service Date/Time: Sunday, September 25, 2016 10:29 - CONCLUSION: Feeding tube distal tip is in the gastric cardia region, barely beyond the GE junction. This should be advanced prior to use. Jack Hinojosa MD Abdomen/Pelvis CT 09/24/163 Signed Impressions: Service Date/Time: Sunday, September 25, 2016 02:33 - CONCLUSION: Bilateral renal masses. Lesion on the left is highly suspicious for renal carcinoma. Jack Sung MD Chest CT 09/24/16 0000 Signed Impressions: Service Date/Time: Sunday, September 25, 2016 02:33 - CONCLUSION: Diffuse airspace disease. Small bilateral pleural effusions. Possibly reactive mediastinal karen enlargement. Jack Sung MD Lumbar Spine MRI 09/21/16 0000 Signed Impressions: Service Date/Time: August 09:54 - CONCLUSION: 1. At L4-5 there is focally advanced degenerative disc disease with endplate marrow changes, marked disc space narrowing and mild enhancement on both sides of the disc interspace post contrast. There is a moderate-sized disc protrusion that results in a moderate stenosis of the lateral recesses. The degree of enhancement is less than would be expected with a discitis or osteomyelitis. No evidence for epidural abscess. No acute fracture or spondylolisthesis. 2. At L3-4 there is a moderate-sized broad-based disc protrusion, right worse than left resulting in a right-sided lateral recess stenosis and mild left lateral recess stenosis. Nestor Rodriguez MD Objective Remarks GENERAL: Patient is 51 yo intubated and sedated. SKIN: Warm and dry. HEAD: Normocephalic. EYES: No scleral icterus. No injection or drainage. NECK: Supple, trachea midline. No JVD or lymphadenopathy. orally intubated CARDIOVASCULAR: Regular rate and rhythm without murmurs, gallops, or rubs. RESPIRATORY: Breath sounds equal bilaterally. No accessory muscle use. GASTROINTESTINAL: Abdomen soft, non-tender, nondistended. MUSCULOSKELETAL: No cyanosis, or edema. Neuro: sedated A/P Assessment and Plan 1)VDRF 2)Diffuse b/l pulm infiltartes 3)Leukocytosis 4)ANDREW..improving 5)Anemia 6)E.coli bacteremia 7)UTI 8)Bipolar disorder 9)Diabetes mellitus 10)Chronic pancreatitis 11)GERD 12)Hyperlipidemia 13)Hypothyroidism 14)Tobacco abuse, History of alcohol abuse 15)History of IV drug use 16)B/l renal masses NEURO: Bipolar disorder Peripheral neuropathy On Diprivan, Fentanyl infusion for sedation, daily sedation vacation when appropriate RESP: Continue with vent support keep sat >92% On PRVC/AC RR 26, TV 450, IT:1.0, PEEP:10, FIO2 40%. Decrease PEEP:5. Check ABG Bronchodilators, ICU vent bundle. On Solumederol 40mg Q6 CV: Hyperlipidemia Monitor HR and BP keep MAP>65mmHg Echo showed EF 55-60%. Lactic acid: 1.6 GI: Chronic pancreatitis GERD Bowel regimen per protocol On tube feeds- Glucerna 1.5 with goal rate 45ml/hr, On Protonix 40mg daily FEN/RENAL: Monitor renal function, I/O;s, electrolytes replacement per protocol. Will need K, Mg, Phos replacement today d/c Lasix Will need CT guided needle biopsy of left renal mass when stable r/o malignancy ID: Continue with abx (Vanco, Zosyn, Levaquin) ID is following. Monitor for signs of infections ( Fever, WBC) Follow up on blood and urine cxs from 09/24 Strep pneumonia and Legionella urinary Ag negative 09/18 BC, urine cx: E.coli 09/19,09/20: Blood cultures: No growth HEME: Monitor CBC ENDO: Hypothyroidism -Synthroid 175 g by mouth daily Diabetes mellitus On SSI medium scale and Levemir insulin 10u qhs PROPH: SCDs and heparin 5000 units subcutaneous every 12 hours for DVT prophylaxis. Protonix 40 g IV daily for stress ulcer prophylaxis. ACCESS: Left IJ CVP placed 09/25 CCT 30 mins Capri Parker MD September 26, 2016 08:53
[2016-09-26 10:30] LABS: BLOOD GAS BASE EXCESS 3.6 mmol/L (-2-2); BLOOD GAS CARBOXYHEMOGLOBIN 0.4 % (0-4); BLOOD GAS HCO3 28 mmol/L (22-26); BLOOD GAS METHEMOGLOBIN 1.1 % (0-2); BLOOD GAS O2 HGB SATURATION 95 % (90-100); BLOOD GAS OXYGEN CONTENT 11.8 Vol % (12.0-20.0); BLOOD GAS PCO2 46 mmHg (38-42); BLOOD GAS PO2 119 mmHg (61-120); BLOOD GAS TOTAL HGB 8.6 G/DL (12.0-16.0); TEMP CORR TO 98.6
[2016-09-26 10:31] LABS: CRITICAL VALUE NO; DRAW SITE RT RADIAL; FIO2 40 %; NUMBER OF ARTERIAL PUNCTURES 1; OXYGEN DEVICE VENTILATOR; STAT NO; ULNAR PULSE Y; VENT SETTINGS CPAP 5/ PS10
[2016-09-26] MEDS ORDERED: CALCIUM GLUCONATE INJ 1 GM in SODIUM CHLORIDE 0.9% INJ 100 ML IV ONE (11:00)
--- NOTE | 2016-09-26 13:45 | HHI.IDPN ---
Subjective Subjective Remarks is a 51 y/o CF with PMHx of renal cancer s.p partial resection of left kidney, thyroid cancer s.p thyroidectomy, DM 2 on insulin and recurrent UTIs. Patient reports to me "This is first time I have been told I have sepsis and I have never been treated for senior living infections". With this background patient presents to the hospital with nausea and vomiting as well as abdominal pain. The patient says that she ate a salad bar last night and shortly thereafter started to feel sick. She said she initially felt chills and then developed stomach pain along with nausea and vomiting. She says she has been vomiting all night and all day. The patient states her abdominal pain is a 9 out of 10 in severity. It is located at the center of her abdomen. She also describes low back pain which she attributes to possibly her kidneys. She also has pain in the back of her thighs. She says she does feel this way when her sugars get out of control sometimes. She denies any pain on urination this time although endorses a h/o recurrent UTIs and being on antibiotics. Last time she was on antibiotics was 3 months back for a UTI. She says she is currently visiting from [place]. She says she does tend to come to the hospital frequently secondary to her brittle diabetes. Sepsis workup initiated and blood cultures positive. ID consulted for evaluation and Mment of Sepsis, Gram negative bacteremia. Notes reviewed Last seen 09/22 and she was doing well On po Levaquin Has been afebrile On 09/23 C/O SOB CXR 09/23 with new infiltrates Transferred to [facility] Intubated 09/25, and just got extubated this morning Currently on nasal O2 and denies SOB No CP Repeat UA ok Ct A/P with steph renal masses, large on L Patient states she had surgical removal of L renal CA in 2006 - no other Rx for her CA States she has fup with her MD Patient not good historian Antibiotics levaquine zosyn vanco Lines Line sites with no e/o infection Past Medical History Past Medical History Diabetes Degenerative disc disease Pancreatitis Recurrent UTIs Past Surgical History Left kidney cancer status post surgery Thyroid cancer status post thyroidectomy. Allergies: Coded Allergies: Sulfa (Verified Allergy, Severe, Hives, 09/18/16) Objective . Vital Signs Date Time Temp Pulse Resp B/P Pulse Ox O2 Delivery O2 Flow Rate FiO2 5/30/17 11:01 92 09/26/16 11:00 92 09/26/16 10:50 92 Nasal Cannula 4.00 09/26/16 10:50 92 Nasal Cannula 4 09/26/16 10:45 83 09/26/16 10:30 86 09/26/16 10:15 91 09/26/16 10:00 80 09/26/16 09:58 100 40 09/26/16 09:00 40 09/26/16 08:45 68 09/26/16 08:45 129/70 09/26/16 08:30 66 09/26/16 08:30 66 26 132/75 99 09/26/16 08:15 77 25 132/72 100 09/26/16 08:15 77 09/26/16 08:00 40 09/26/16 08:00 98.2 65 26 141/73 99 09/26/16 08:00 99 40 09/26/16 08:00 65 09/26/16 06:00 62 09/26/16 04:03 99 40 09/26/16 04:00 63 09/26/16 04:00 40 09/26/16 04:00 99.0 63 26 137/74 100 09/26/16 02:00 64 09/26/16 01:02 99 40 09/26/16 00:00 98.5 69 26 144/74 99 09/26/16 00:00 69 09/26/16 00:00 40 09/25/16 22:34 100 40 09/25/16 22:00 87 09/25/16 20:00 40 09/25/16 20:00 98.6 79 26 144/82 100 09/25/16 20:00 79 09/25/16 19:27 100 40 09/25/16 18:00 74 09/25/16 16:03 99 40 09/25/16 16:00 99.3 71 17 100/55 98 09/25/16 16:00 74 09/25/16 16:00 100 09/25/16 14:00 65 09/25/16 09/25/16 09/26/16 15:00 23:00 07:00 Intake Total 891 ml 941 ml 968 ml Output Total 950 ml 2050 ml 500 ml Balance -59 ml -1109 ml 468 ml Intake Oral 0 ml 0 ml IV Total 665 ml 711 ml 968 ml Tube Feeding 226 ml 230 ml Output Urine Total 950 ml 2050 ml 500 ml # Bowel Movements 0 0 . Laboratory Tests Test 09/25/16 05:50 White Blood Count 16.1 TH/MM3 Red Blood Count 2.53 MIL/MM3 Hemoglobin 7.8 GM/DL Hematocrit 22.7 % Mean Corpuscular Volume 89.5 FL Mean Corpuscular Hemoglobin 30.8 PG Mean Corpuscular Hemoglobin 34.4 % Concent Red Cell Distribution Width 14.1 % Platelet Count 275 TH/MM3 Mean Platelet Volume 8.1 FL Neutrophils (%) (Auto) 91.6 % Lymphocytes (%) (Auto) 5.2 % Monocytes (%) (Auto) 3.1 % Eosinophils (%) (Auto) 0.0 % Basophils (%) (Auto) 0.1 % Neutrophils # (Auto) 14.8 TH/MM3 Lymphocytes # (Auto) 0.8 TH/MM3 Monocytes # (Auto) 0.5 TH/MM3 Eosinophils # (Auto) 0.0 TH/MM3 Basophils # (Auto) 0.0 TH/MM3 CBC Comment DIFF FINAL Differential Comment Laboratory Tests Test 09/24/16 09/24/16 09/25/16 17:05 22:20 05:50 Lactic Acid Level 1.4 mmol/L 1.6 mmol/L Total Creatine Kinase 155 U/L Creatine Kinase MB 3.6 NG/ML Troponin I LESS THAN 0.02 NG/ML Lipase 30 U/L Human Chorionic Gonadotropin, LESS THAN 1 Quant MIU/ML Sodium Level 139 MEQ/L Potassium Level 3.3 MEQ/L Chloride Level 103 MEQ/L Carbon Dioxide Level 27.5 MEQ/L Anion Gap 9 MEQ/L Blood Urea Nitrogen 18 MG/DL Creatinine 1.11 MG/DL Estimat Glomerular Filtration 52 ML/MIN Rate Random Glucose 142 MG/DL Calcium Level 7.1 MG/DL Protein Corrected Calcium 8.2 MG/DL Phosphorus Level 2.4 MG/DL Magnesium Level 1.4 MG/DL Total Bilirubin 0.7 MG/DL Direct Bilirubin 0.4 MG/DL Indirect Bilirubin 0.3 MG/DL Aspartate Amino Transf 29 U/L (AST/SGOT) Alanine Aminotransferase 31 U/L (ALT/SGPT) Alkaline Phosphatase 114 U/L Total Protein 5.1 GM/DL Albumin 1.8 GM/DL Microbiology Date/Time Procedure Status Source Growth 09/24/16 13:27 Urine Culture - Final Complete Urine Clean Catch NO GROWTH IN 48 HOURS. 09/24/16 13:27 Legionella Antigen - Final Complete Urine Catheterized Urine PRESUMPTIVE NEGATIVE FOR LEGIONELLA P... 09/24/16 13:27 Streptococcus pneumoniae Antigen (M - Final Complete Urine Catheterized Urine PRESUMPTIVE NEGATIVE FOR STREPTOCOCCU... 09/24/16 17:05 Aerobic Blood Culture - Preliminary Resulted Blood Peripheral NO GROWTH IN 2 DAYS 09/24/16 17:05 Anaerobic Blood Culture - Preliminary Resulted Blood Peripheral NO GROWTH IN 2 DAYS 09/24/16 17:10 Aerobic Blood Culture - Preliminary Resulted Blood Peripheral NO GROWTH IN 2 DAYS 09/24/16 17:10 Anaerobic Blood Culture - Preliminary Resulted Blood Peripheral NO GROWTH IN 2 DAYS 09/25/16 09:20 Gram Stain - Final Resulted Sputum Endotracheal 09/25/16 09:20 Sputum Culture - Preliminary Resulted Sputum Endotracheal HEAVY GROWTH NORMAL RESPIRATORY RITA... Imaging Last Impressions Chest X-Ray 09/25/16 0000 Signed Impressions: Service Date/Time: Sunday, September 25, 2016 05:43 - CONCLUSION: Satisfactory Central line and ET tube positioning. Slightly improved aeration Jack Sung MD Abdomen X-Ray 09/25/16 0000 Signed Impressions: Service Date/Time: Sunday, September 25, 2016 10:29 - CONCLUSION: Feeding tube distal tip is in the gastric cardia region, barely beyond the GE junction. This should be advanced prior to use. Jack Hinojosa MD Abdomen/Pelvis CT 09/24/162132 Signed Impressions: Service Date/Time: Sunday, September 25, 2016 02:33 - CONCLUSION: Bilateral renal masses. Lesion on the left is highly suspicious for renal carcinoma. Jack Sung MD Chest CT 09/24/16 0000 Signed Impressions: Service Date/Time: Sunday, September 25, 2016 02:33 - CONCLUSION: Diffuse airspace disease. Small bilateral pleural effusions. Possibly reactive mediastinal karen enlargement. Jack Sung MD Lumbar Spine MRI 09/21/16 0000 Signed Impressions: Service Date/Time: August 09:54 - CONCLUSION: 1. At L4-5 there is focally advanced degenerative disc disease with endplate marrow changes, marked disc space narrowing and mild enhancement on both sides of the disc interspace post contrast. There is a moderate-sized disc protrusion that results in a moderate stenosis of the lateral recesses. The degree of enhancement is less than would be expected with a discitis or osteomyelitis. No evidence for epidural abscess. No acute fracture or spondylolisthesis. 2. At L3-4 there is a moderate-sized broad-based disc protrusion, right worse than left resulting in a right-sided lateral recess stenosis and mild left lateral recess stenosis. Nestor Rodriguez MD Physical Exam GENERAL: Awake and alert. No distress SKIN: No rashes, ecchymoses or lesions. Cool and dry. HEAD: Atraumatic. Normocephalic. No temporal or scalp tenderness. EYES: No scleral icterus. No injection or drainage. ENT: Nose without bleeding, purulent drainage or septal hematoma. Oralm mucosae without erythema, tonsillar hypertrophy or exudate. Uvula midline. Airway patent. NECK: Trachea midline. CARDIOVASCULAR: RRR without murmur. RESPIRATORY: Clear to auscultation. Breath sounds equal bilaterally. No wheezes , rales, or rhonchi. GASTROINTESTINAL: Abdomen soft, not tender, not distended. MUSCULOSKELETAL: Extremities without clubbing, cyanosis, or edema. No calf tenderness. Negative Homans sign bilaterally. NEUROLOGICAL: Non-focal Psych: Calm and cooperative IV line sites with no e/o infection. Assessment & Plan Remarks Sepsis present on admission E.coli bacteremia: 2/2 UTI, pyelonephritis. : resolved - repeat UA better L kidney renal carcinoma DM 2 uncontrolled. Recurrent UTI by history, no renal stones. New onset hypoxia with pulm infiltrates,bandemia and acute VDRF - ? ARDS 2/2 new/ worsening infx - non cardiogenic ( BNP is clearly above nl), troponin neg; recent echo with nl EF - Just got extubated Previous abx used: cefepime, levaquin Leukocytosis Recs: Cont Levaquin Also on zosyn and vancomycin Follow C/S and deescalate once available Monitor progress Monitor respiratory status post-extubation Follow CBC D/W Mary Call MD September 26, 2016 13:45
[2016-09-26] MEDS ORDERED: PHARMACY ORDERED LAB ONE (17:45)
[2016-09-26] MEDS: VANCOMYCIN INJ 1,250 MG in SODIUM CHLOR 0.9% 250 ML INJ 250 ML IV SCH (18:03)
--- NOTE | 2016-09-26 19:03 | HHI.PR ---
Subjective Remarks 51 YOWF with VDRF,Bilat Infilt, E.coli UTI Extubated Weaned to NC Feels much better Objective Vital Signs Vital Signs Date Time Temp Pulse Resp B/P Pulse Ox O2 Delivery O2 Flow Rate FiO2 09/26/16 18:15 105 25 128/66 94 09/26/16 18:15 105 09/26/16 18:00 104 09/26/16 18:00 104 22 130/66 95 09/26/16 17:45 100 09/26/16 17:45 100 19 125/61 95 09/26/16 17:30 101 09/26/16 17:30 101 32 115/59 94 09/26/16 17:15 101 09/26/16 17:15 101 17 132/68 95 09/26/16 17:00 101 20 136/71 93 09/26/16 17:00 101 09/26/16 16:45 107 28 125/64 93 09/26/16 16:45 107 09/26/16 16:30 101 09/26/16 16:30 101 29 118/58 95 09/26/16 16:15 101 09/26/16 16:15 101 16 116/55 95 09/26/16 16:00 103 09/26/16 16:00 98.2 103 15 116/57 93 09/26/16 15:47 104 38 116/53 92 09/26/16 15:30 102 22 114/55 93 09/26/16 15:30 102 09/26/16 15:15 90 09/26/16 15:15 90 13 125/56 97 09/26/16 15:00 93 13 130/64 94 09/26/16 15:00 93 09/26/16 14:45 90 20 132/63 96 09/26/16 14:45 90 09/26/16 14:30 98 09/26/16 14:30 98 35 113/56 90 09/26/16 14:15 93 09/26/16 14:15 93 24 118/59 93 09/26/16 14:00 92 09/26/16 14:00 92 20 119/58 95 09/26/16 13:45 96 09/26/16 13:45 96 14 122/57 94 09/26/16 13:30 93 09/26/16 13:30 93 18 132/61 96 09/26/16 13:15 98 09/26/16 13:15 98 18 136/65 94 09/26/16 13:00 101 09/26/16 13:00 101 22 141/65 92 09/26/16 12:45 98 30 111/53 92 09/26/16 12:45 98 09/26/16 12:30 92 21 124/60 96 09/26/16 12:30 92 09/26/16 12:15 90 25 129/63 93 09/26/16 12:15 90 09/26/16 12:00 98.3 91 20 132/60 96 09/26/16 12:00 91 09/26/16 11:01 92 09/26/16 11:00 92 09/26/16 10:50 92 Nasal Cannula 4.00 09/26/16 10:50 92 Nasal Cannula 4 09/26/16 10:45 83 09/26/16 10:30 86 09/26/16 10:15 91 09/26/16 10:00 80 09/26/16 09:58 100 40 09/26/16 09:00 40 09/26/16 08:45 68 09/26/16 08:45 129/70 09/26/16 08:30 66 09/26/16 08:30 66 26 132/75 99 09/26/16 08:15 77 25 132/72 100 09/26/16 08:15 77 09/26/16 08:00 40 09/26/16 08:00 98.2 65 26 141/73 99 09/26/16 08:00 99 40 09/26/16 08:00 65 09/26/16 06:00 62 09/26/16 04:03 99 40 09/26/16 04:00 63 09/26/16 04:00 40 09/26/16 04:00 99.0 63 26 137/74 100 09/26/16 02:00 64 09/26/16 01:02 99 40 09/26/16 00:00 98.5 69 26 144/74 99 09/26/16 00:00 69 09/26/16 00:00 40 09/25/16 22:34 100 40 09/25/16 22:00 87 09/25/16 20:00 40 09/25/16 20:00 98.6 79 26 144/82 100 09/25/16 20:00 79 09/25/16 19:27 100 40 I/O 09/25/16 09/25/16 09/25/16 09/26/16 09/26/16 09/26/16 07:00 15:00 23:00 07:00 15:00 23:00 Intake Total 447 ml 891 ml 941 ml 968 ml 1072 ml Output Total 500 ml 950 ml 2050 ml 500 ml 2300 ml Balance -53 ml -59 ml -1109 ml 468 ml -1228 ml Intake Oral 240 ml 0 ml 0 ml 720 ml IV Total 207 ml 665 ml 711 ml 968 ml 296 ml Tube Feeding 226 ml 230 ml 56 ml Output Urine Total 500 ml 950 ml 2050 ml 500 ml 2300 ml # Bowel Movements 0 0 0 0 Result Diagram: 09/25/16 0550 09/25/16 0550 Objective Remarks GENERAL: MBMN WF, on Vent SKIN: Warm and dry. HEAD: Normocephalic. EYES: No scleral icterus. No injection or drainage. NECK: Supple, trachea midline. No JVD or lymphadenopathy. CARDIOVASCULAR: Regular rate and rhythm without murmurs, gallops, or rubs. RESPIRATORY: Breath sounds equal bilaterally. No accessory muscle use. GASTROINTESTINAL: Abdomen soft, non-tender, nondistended. MUSCULOSKELETAL: No cyanosis, or edema. BACK: Nontender without obvious deformity. No CVA tenderness. A/P Assessment and Plan VDRF, s/p extubation Bilat Infilt E.coli UTI Ch Pain PLAN: Abx Vanco, Levaquin and Zosyn Aerosol nebs Supplement 02 Wean 02 to keep sat >92% Oneal Russell MD September 26, 2016 19:03
[2016-09-26] MEDS: PANTOPRAZOLE SODIUM 40 MG VIAL IV PUSH SCH (19:50)
[2016-09-26] MEDS: lamoTRIgine 100 MG TAB PO SCH (19:50)
[2016-09-26] MEDS: INSULIN DETEMIR 100 UNITS/ML VIAL SQ SCH (19:51)
[2016-09-26] MEDS: traZODone HCL 100 MG TAB PO SCH (20:50)
[2016-09-26] MEDS: LEVOFLOXACIN 750 MG PREMIX INJ 150 ML IV SCH (20:50)
[2016-09-26] MEDS: MORPHINE SULFATE 4 MG/ML INJ IV PRN (23:19)
[2016-09-27] VITALS (14 sets, daily range): BP systolic 117–150; BP diastolic 57–96; PULSE 80–107; RESP 12–22; TEMP 98.5–99.9; O2SAT 92–100
[2016-09-27] MEDS: INSULIN ASPART SUPPLEMENTAL SCALE SQ SCH ×3 (03:00→11:00)
[2016-09-27] MEDS: PIPERACIL-TAZO 4.5 GM PREMIX 100 ML IV SCH ×4 (03:00→21:01)
[2016-09-27] MEDS: CHLORHEXIDINE GLUCONATE 2 % 1 PACK (2 CLOTHS)(taper/protocol) TOPICAL SCH (04:00)
[2016-09-27 04:56] LABS: AUTOMATED NEUTROPHIL # 13.6 TH/MM3 (1.8-7.7); BASOPHIL % 0.1 % (0.0-2.0); HEMATOCRIT 23.7 % (35.0-46.0); HEMO FLAGS DIFF FINAL; LYMPH % 4.5 % (9.0-44.0); LYMPHOCYTE # 0.7 TH/MM3 (1.0-4.8); MEAN CELL VOLUME 88.8 FL (80.0-100.0); MEAN CORPUSCULAR HEMOGLOBIN 29.7 PG (27.0-34.0); MEAN CORPUSCULAR HGB CONC 33.4 % (32.0-36.0); MONO % 3.1 % (0.0-8.0); NEUT % 92.3 % (16.0-70.0); PLATELET COUNT 295 TH/MM3 (150-450); RED BLOOD COUNT 2.67 MIL/MM3 (4.00-5.30); RED CELL DISTRIBUTION WIDTH 13.5 % (11.6-17.2); WHITE BLOOD COUNT 14.8 TH/MM3 (4.0-11.0)
[2016-09-27 05:37] LABS: BICARBONATE 34.4 MEQ/L (21.0-32.0); MAGNESIUM 1.9 MG/DL (1.5-2.5)
[2016-09-27 05:39] LABS: POTASSIUM 2.9 MEQ/L (3.5-5.1)
[2016-09-27] MEDS: LEVOTHYROXINE SODIUM 150 MCG TAB PO SCH (05:47)
[2016-09-27] MEDS: POTASSIUM PHOSPHATE MONOBASIC 500 MG TAB PO PRN ×2 (05:47→10:11)
[2016-09-27] MEDS: LEVOTHYROXINE SODIUM 25 MCG TAB PO SCH (05:47)
[2016-09-27] MEDS: methylPREDNISolone SOD SUCC 40 MG/1 ML VIAL IV PUSH SCH ×2 (05:47→11:29)
[2016-09-27] MEDS: POTASSIUM CHLOR 40 MEQ PREMIX 100 ML IV PRN ×2 (05:48→08:10)
[2016-09-27 05:51] LABS: CALCIUM-PROTEIN CORRECTED 8.2 MG/DL (8.5-10.1)
[2016-09-27] MEDS: RESP: ALBUTEROL 2.5 MG/IPRATROPIUM 0.5 MG NEB (SCH) NEB ×4 (07:39→20:37)
[2016-09-27] MEDS: DOCUSATE SODIUM 100 MG CAP PO SCH ×2 (07:48→20:48)
[2016-09-27] MEDS: hydrOXYzine PAMOATE 25 MG CAP PO SCH ×2 (07:49→20:48)
[2016-09-27] MEDS: SODIUM CHLORIDE 0.9% FLUSH 10 ML FLUSH IV FLUSH SCH ×2 (07:49→21:01)
[2016-09-27] MEDS: VENLAFAXINE HCL XR 75 MG CAP PO SCH (07:49)
[2016-09-27] MEDS: GABAPENTIN 100 MG CAP PO SCH ×3 (07:50→17:59)
[2016-09-27] MEDS: HEPARIN SODIUM - SQ 10,000 UNITS/ML VIAL SQ SCH ×2 (07:50→20:45)
[2016-09-27] MEDS: REMOVE OLD PATCH T-DERMAL SCH (07:50)
[2016-09-27] MEDS: NICOTINE 14 MG/24 HR PATCH T-DERMAL SCH (07:51)
--- NOTE | 2016-09-27 11:39 | HHI.CCPN ---
Subjective Remarks/Hospital Course 51-year-old female with a past medical history of diabetes, hypothyroidism status post thyroidectomy, hyperlipidemia, chronic pancreatitis, bipolar disorder, recurrent urinary tract infections, remote history of alcohol abuse, history of IV drug use, who [place] [facility] [place] to worsening respiratory status with bilateral pulmonary infiltrates. She was initially admitted on 09/18/16. She states that she began feeling nauseated on the day prior to admission "but I ate anyway". Then felt chills and rather diffuse abdominal pain 9 out of 10 in severity, centrally located and radiating into her back and into her hips. She had multiple episodes of emesis. She denies diarrhea. Fever up to 102.6. She states that this feels different than her prior issues with pancreatitis. She has had recurrent urinary tract infections but states that this also felt different than those and she denied dysuria. Her workup included urinalysis which was consistent with urinary tract infection with culture positive for pansensitive Escherichia coli. She was bacteremic with Escherichia coli in 4 out of 4 blood cultures. She received various beta-lactam antibiotics, all of which would appropriately cover cultured organism (Rocephin 09/18-09/19, unasyn 09/19, Cefepime 09/19-09/22). Blood cultures cleared on 09/19, 09/20 and she defervesced 09/23. CT C/A/P on 09/19 was negative. Lumbar MRI negative 09/21 for epidural abscess/ osteo/ diskitis. CXR on 09/18 was clear and lung geronimo on the CT from 09/19 also clear. She has been on NC ~ 4L. CXR on 09/23 showed bilateral infiltrates, perihilar and bibasilar. She received Lasix 20 mg IV on 09/23. Repeat CXR 09/24 worse infiltrates. She is now on NR. She continues to complain of abdominal pain, about the same as since admission, possibly a little better. She has been started on zosyn and vancomycin per ID and repeat CT abd/pelvis is ordered. Patient has had Echo with EF 55-60%. Troponin negative. Process appears c/w ARDS despite noted BNP 322. Patient also has had 2 prior prolonged hospitalizations for mechanical ventilation with "bilateral pneumonia" which may have been ARDS. 09/25 Patient is sedated with Diprivan, Fentanyl and intubated. Afebrile. CXR this morning showed improved aeration of her lungs. 09/26 Patient remains sedated and intubated. Afebrile, Subjective 09/27: Extubated yesterday without complication. Diuresed -4200 past 24 hours. Complaining of pain in right upper extremity possibly infiltrate IV. Sugar elevated this AM Objective Vital Signs Date Time Temp Pulse Resp B/P Pulse Ox O2 Delivery O2 Flow Rate FiO2 09/27/16 08:00 99.5 105 21 150/96 92 09/27/16 07:39 Nasal Cannula 3.00 09/26/16 09:58 40 Intake and Output 09/26/16 09/26/16 09/27/16 08:00 16:00 00:00 Intake Total 968 ml 1072 ml 1440 ml Output Total 500 ml 2300 ml 850 ml Balance 468 ml -1228 ml 590 ml Result Diagram: 09/27/16 0435 09/27/16 0435 Other Results Microbiology Date/Time Procedure Status Source Growth 09/25/16 09:20 Gram Stain - Final Complete Sputum Endotracheal 09/25/16 09:20 Sputum Culture - Final Complete Sputum Endotracheal HEAVY GROWTH NORMAL RESPIRATORY RITA 09/24/16 17:10 Aerobic Blood Culture - Preliminary Resulted Blood Peripheral NO GROWTH IN 3 DAYS 09/24/16 17:10 Anaerobic Blood Culture - Preliminary Resulted Blood Peripheral NO GROWTH IN 3 DAYS 09/24/16 13:27 Urine Culture - Final Complete Urine Clean Catch NO GROWTH IN 48 HOURS. 09/24/16 13:27 Legionella Antigen - Final Complete Urine Catheterized Urine PRESUMPTIVE NEGATIVE FOR LEGIONELLA P... 09/24/16 13:27 Streptococcus pneumoniae Antigen (M - Final Complete Urine Catheterized Urine PRESUMPTIVE NEGATIVE FOR STREPTOCOCCU... Imaging Last Impressions Chest X-Ray 09/26/16 0000 Signed Impressions: Service Date/Time: Monday, September 26, 2016 03:51 - CONCLUSION: Improving aeration Jack Sung MD Abdomen X-Ray 09/25/16 0000 Signed Impressions: Service Date/Time: Sunday, September 25, 2016 10:29 - CONCLUSION: Feeding tube distal tip is in the gastric cardia region, barely beyond the GE junction. This should be advanced prior to use. Jack Hinojosa MD Abdomen/Pelvis CT 09/24/16 2133 Signed Impressions: Service Date/Time: Sunday, September 25, 2016 02:33 - CONCLUSION: Bilateral renal masses. Lesion on the left is highly suspicious for renal carcinoma. Jack Sung MD Chest CT 09/24/16 0000 Signed Impressions: Service Date/Time: Sunday, September 25, 2016 02:33 - CONCLUSION: Diffuse airspace disease. Small bilateral pleural effusions. Possibly reactive mediastinal karen enlargement. Jack Sung MD Lumbar Spine MRI 09/21/16 0000 Signed Impressions: Service Date/Time: August 09:54 - CONCLUSION: 1. At L4-5 there is focally advanced degenerative disc disease with endplate marrow changes, marked disc space narrowing and mild enhancement on both sides of the disc interspace post contrast. There is a moderate-sized disc protrusion that results in a moderate stenosis of the lateral recesses. The degree of enhancement is less than would be expected with a discitis or osteomyelitis. No evidence for epidural abscess. No acute fracture or spondylolisthesis. 2. At L3-4 there is a moderate-sized broad-based disc protrusion, right worse than left resulting in a right-sided lateral recess stenosis and mild left lateral recess stenosis. Nestor Rodriguez MD Objective Remarks GENERAL: 51-year-old female, resting in bed in no acute distress SKIN: Warm and dry. No rash HEAD: Normocephalic. EYES: No scleral icterus. No injection or drainage. NECK: Supple, trachea midline. No JVD or lymphadenopathy. orally intubated CARDIOVASCULAR: RRR. S1, S2. No S4.. RESPIRATORY: Breath sounds equal bilaterally. No accessory muscle use. GASTROINTESTINAL: Abdomen soft, non-tender, nondistended. Hypoactive bowel sounds MUSCULOSKELETAL: Laboratory 1+ edema. Neuro: Cranial nerves II through XII grossly intact. Strength is equal symmetric. Normal sensation A/P Assessment and Plan NEURO/PSYCH: THC use Bipolar disorder Peripheral neuropathy Chronic opiate use History of IV drug use History of alcoholism quit 17 years ago Acetaminophen for fever/pain Oxycodone5 mill grams every 4 hours as needed for pain. Morphine 3 mg IV as needed for breakthrough pain Continue Lamictal 200 mg at night, trazodone 4 mill grams a night and Effexor 50 mg daily for depression/bipolar disorder Decreased Neurontin from 600 3 times a day 100 milligrams 3 times a day for neuropathy. Vistaril 25 mg twice a day for anxiety RESP: Acute hypoxemic respiratory failure with noncardiogenic pulmonary edema resolving History of tobaccoism Nasal cannula to maintain saturations greater or equal to 92% Incentive spirometry while awake DuoNeb Bronchodilators every 4 hours while awake and every 2 hours as needed On Solumederol 40mg Q8 Follow-up on chest x-ray in a.m. Nicotine patch 14 mg daily. Cessation encouraged CV: Hyperlipidemia Monitor HR and BP keep MAP>65mmHg Echo showed EF 55-60%. Lactic acid: 1.6 On Zocor 20 mg at night at home for dyslipidemia GI: Chronic pancreatitis GERD Bowel regimen per protocol with Colace 100 mg twice a day On Protonix 40mg daily Switch to ADA diet. FEN/RENAL: Hypokalemia Hypophosphatemia Hypo-magnesium Acute kidney injury Bilateral renal masses left side 6 cm right-sided 1 cm Monitor renal function, I/O;s, electrolytes replacement per protocol. Will need K, Mg, Phos replacement today Follow BMP in a.m. Will need appropriate nephrology/urology evaluation once medically stabilized for bilateral renal masses ID: Escherichia coli bacteremia/UTI Continue with abx (Vanco, Zosyn, Levaquin) ID is following. Monitor for signs of infections ( Fever, WBC) Follow up on blood and urine cxs from 09/24 Strep pneumonia and Legionella urinary Ag negative 09/18 BC, urine cx: E.coli 09/19,09/20: Blood cultures: No growth 09/24 - blood cultures no growth 09/24 - urine no growth 09/25 - sputum no growth HEME: Leukocytosis Anemia Monitor CBC ENDO: Hypothyroidism -Synthroid 175 g by mouth daily Diabetes mellitus On SSI high scale with Accu-Cheks before meals/at bedtime and O3 100 hours with Levemir 10 units twice a day. 31 units sliding scale past 24 hours. PROPH: SCDs and heparin 5000 units subcutaneous every 12 hours for DVT prophylaxis. Protonix 40 g IV daily for stress ulcer prophylaxis. ACCESS: Left IJ CVP placed 09/25 Level II Sign out to hospitalist in a.m. 09/28 Wander Stock MD September 27, 2016 11:39
[2016-09-27] MEDS ORDERED: DEXTROSE 50% IN WATER 50 ML VIAL(D50) IV PRN (11:45)
[2016-09-27] MEDS ORDERED: GLUCAGON 1 MG/ML VIAL OTHER PRN (11:45)
[2016-09-27] MEDS: ONDANSETRON HCL 4 MG/2 ML VIAL IVP PRN (12:16)
[2016-09-27] MEDS: MORPHINE SULFATE 4 MG/ML INJ IV PRN ×2 (12:16→21:33)
--- NOTE | 2016-09-27 13:40 | HHI.IDPN ---
Subjective Subjective Remarks is a 51 y/o CF with PMHx of renal cancer s.p partial resection of left kidney, thyroid cancer s.p thyroidectomy, DM 2 on insulin and recurrent UTIs. Patient reports to me "This is first time I have been told I have sepsis and I have never been treated for care home infections". With this background patient presents to the hospital with nausea and vomiting as well as abdominal pain. The patient says that she ate a salad bar last night and shortly thereafter started to feel sick. She said she initially felt chills and then developed stomach pain along with nausea and vomiting. She says she has been vomiting all night and all day. The patient states her abdominal pain is a 9 out of 10 in severity. It is located at the center of her abdomen. She also describes low back pain which she attributes to possibly her kidneys. She also has pain in the back of her thighs. She says she does feel this way when her sugars get out of control sometimes. She denies any pain on urination this time although endorses a h/o recurrent UTIs and being on antibiotics. Last time she was on antibiotics was 3 months back for a UTI. She says she is currently visiting from [place]. She says she does tend to come to the hospital frequently secondary to her brittle diabetes. Sepsis workup initiated and blood cultures positive. ID consulted for evaluation and Mment of Sepsis, Gram negative bacteremia. Notes reviewed Last seen 09/22 and she was doing well On po Levaquin Has been afebrile On 09/23 C/O SOB CXR 09/23 with new infiltrates Transferred to [facility] [place] Intubated 09/25, and just got extubated this morning Currently on nasal O2 and denies SOB No CP Repeat UA ok Ct A/P with steph renal masses, large on L Patient states she had surgical removal of L renal CA in 2006 - no other Rx for her CA States she has fup with her MD Patient not good historian Antibiotics levaquine zosyn vanco Lines Line sites with no e/o infection Past Medical History Past Medical History Diabetes Degenerative disc disease Pancreatitis Recurrent UTIs Past Surgical History Left kidney cancer status post surgery Thyroid cancer status post thyroidectomy. Allergies: Coded Allergies: Sulfa (Verified Allergy, Severe, Hives, 09/18/16) Objective . Vital Signs Date Time Temp Pulse Resp B/P Pulse Ox O2 Delivery O2 Flow Rate FiO2 5/31/17 12:00 99.7 107 12 139/65 96 09/27/16 12:00 105 09/27/16 10:00 105 09/27/16 08:00 99.5 105 21 150/96 92 09/27/16 08:00 105 09/27/16 07:39 95 Nasal Cannula 3.00 09/27/16 06:00 90 09/27/16 04:00 98.7 83 15 117/57 100 09/27/16 04:00 83 09/27/16 02:00 81 09/27/16 02:00 80 09/27/16 00:22 18 09/27/16 00:00 81 09/27/16 00:00 98.5 81 19 118/57 98 09/26/16 22:00 88 09/26/16 20:11 95 Nasal Cannula 2.00 09/26/16 20:00 96 09/26/16 20:00 98.7 96 30 119/58 95 09/26/16 18:15 105 25 128/66 94 09/26/16 18:15 105 09/26/16 18:00 104 09/26/16 18:00 104 22 130/66 95 09/26/16 17:45 100 09/26/16 17:45 100 19 125/61 95 09/26/16 17:30 101 09/26/16 17:30 101 32 115/59 94 09/26/16 17:15 101 09/26/16 17:15 101 17 132/68 95 09/26/16 17:00 101 20 136/71 93 09/26/16 17:00 101 09/26/16 16:45 107 28 125/64 93 09/26/16 16:45 107 09/26/16 16:30 101 09/26/16 16:30 101 29 118/58 95 09/26/16 16:15 101 09/26/16 16:15 101 16 116/55 95 09/26/16 16:00 103 09/26/16 16:00 98.2 103 15 116/57 93 09/26/16 15:47 104 38 116/53 92 09/26/16 15:30 102 22 114/55 93 09/26/16 15:30 102 09/26/16 15:15 90 09/26/16 15:15 90 13 125/56 97 09/26/16 15:00 93 13 130/64 94 09/26/16 15:00 93 09/26/16 14:45 90 20 132/63 96 09/26/16 14:45 90 09/26/16 14:30 98 09/26/16 14:30 98 35 113/56 90 09/26/16 14:15 93 09/26/16 14:15 93 24 118/59 93 09/26/16 14:00 92 09/26/16 14:00 92 20 119/58 95 09/26/16 13:45 96 09/26/16 13:45 96 14 122/57 94 09/26/16 09/26/16 09/27/16 15:00 23:00 07:00 Intake Total 1072 ml 1440 ml 932 ml Output Total 2300 ml 850 ml 1050 ml Balance -1228 ml 590 ml -118 ml Intake Oral 720 ml 800 ml 800 ml IV Total 296 ml 640 ml 132 ml Tube Feeding 56 ml Output Urine Total 2300 ml 850 ml 1050 ml # Bowel Movements 0 0 . Laboratory Tests Test 09/27/16 04:35 White Blood Count 14.8 TH/MM3 Red Blood Count 2.67 MIL/MM3 Hemoglobin 7.9 GM/DL Hematocrit 23.7 % Mean Corpuscular Volume 88.8 FL Mean Corpuscular Hemoglobin 29.7 PG Mean Corpuscular Hemoglobin 33.4 % Concent Red Cell Distribution Width 13.5 % Platelet Count 295 TH/MM3 Mean Platelet Volume 8.1 FL Neutrophils (%) (Auto) 92.3 % Lymphocytes (%) (Auto) 4.5 % Monocytes (%) (Auto) 3.1 % Eosinophils (%) (Auto) 0.0 % Basophils (%) (Auto) 0.1 % Neutrophils # (Auto) 13.6 TH/MM3 Lymphocytes # (Auto) 0.7 TH/MM3 Monocytes # (Auto) 0.5 TH/MM3 Eosinophils # (Auto) 0.0 TH/MM3 Basophils # (Auto) 0.0 TH/MM3 CBC Comment DIFF FINAL Differential Comment Laboratory Tests Test 09/27/16 04:35 Sodium Level 143 MEQ/L Potassium Level 2.9 MEQ/L Chloride Level 101 MEQ/L Carbon Dioxide Level 34.4 MEQ/L Anion Gap 8 MEQ/L Blood Urea Nitrogen 23 MG/DL Creatinine 1.36 MG/DL Estimat Glomerular Filtration 41 ML/MIN Rate Random Glucose 123 MG/DL Calcium Level 7.3 MG/DL Protein Corrected Calcium 8.2 MG/DL Phosphorus Level 2.3 MG/DL Magnesium Level 1.9 MG/DL Total Protein 5.5 GM/DL Microbiology Date/Time Procedure Status Source Growth 09/24/16 17:05 Aerobic Blood Culture - Preliminary Resulted Blood Peripheral NO GROWTH IN 3 DAYS 09/24/16 17:05 Anaerobic Blood Culture - Preliminary Resulted Blood Peripheral NO GROWTH IN 3 DAYS 09/24/16 17:10 Aerobic Blood Culture - Preliminary Resulted Blood Peripheral NO GROWTH IN 3 DAYS 09/24/16 17:10 Anaerobic Blood Culture - Preliminary Resulted Blood Peripheral NO GROWTH IN 3 DAYS 09/25/16 09:20 Gram Stain - Final Complete Sputum Endotracheal 09/25/16 09:20 Sputum Culture - Final Complete Sputum Endotracheal HEAVY GROWTH NORMAL RESPIRATORY RITA Imaging Chest X-Ray 09/26/16 0000 Signed Impressions: Service Date/Time: Monday, September 26, 2016 03:51 - CONCLUSION: Improving aeration Jack Sung MD Last Impressions Chest X-Ray 09/25/16 0000 Signed Impressions: Service Date/Time: Sunday, September 25, 2016 05:43 - CONCLUSION: Satisfactory Central line and ET tube positioning. Slightly improved aeration Jack Sung MD Abdomen X-Ray 09/25/16 0000 Signed Impressions: Service Date/Time: Sunday, September 25, 2016 10:29 - CONCLUSION: Feeding tube distal tip is in the gastric cardia region, barely beyond the GE junction. This should be advanced prior to use. Jack Hinojosa MD Abdomen/Pelvis CT 09/24/162132 Signed Impressions: Service Date/Time: Sunday, September 25, 2016 02:33 - CONCLUSION: Bilateral renal masses. Lesion on the left is highly suspicious for renal carcinoma. Jack Sung MD Chest CT 09/24/16 0000 Signed Impressions: Service Date/Time: Sunday, September 25, 2016 02:33 - CONCLUSION: Diffuse airspace disease. Small bilateral pleural effusions. Possibly reactive mediastinal karen enlargement. Jack Sung MD Lumbar Spine MRI 09/21/16 0000 Signed Impressions: Service Date/Time: August 09:54 - CONCLUSION: 1. At L4-5 there is focally advanced degenerative disc disease with endplate marrow changes, marked disc space narrowing and mild enhancement on both sides of the disc interspace post contrast. There is a moderate-sized disc protrusion that results in a moderate stenosis of the lateral recesses. The degree of enhancement is less than would be expected with a discitis or osteomyelitis. No evidence for epidural abscess. No acute fracture or spondylolisthesis. 2. At L3-4 there is a moderate-sized broad-based disc protrusion, right worse than left resulting in a right-sided lateral recess stenosis and mild left lateral recess stenosis. Nestor Rodriguez MD Physical Exam GENERAL: Awake and alert. No distress SKIN: No rashes, ecchymoses or lesions. Cool and dry. HEAD: Atraumatic. Normocephalic. No temporal or scalp tenderness. EYES: No scleral icterus. No injection or drainage. ENT: Nose without bleeding, purulent drainage or septal hematoma. Oral mucosae without erythema, tonsillar hypertrophy or exudate. NECK: Trachea midline. CARDIOVASCULAR: RRR without murmur. RESPIRATORY: Clear to auscultation. Breath sounds equal bilaterally. No wheezes , rales, or rhonchi. GASTROINTESTINAL: Abdomen soft, not tender, not distended. MUSCULOSKELETAL: Extremities without clubbing, cyanosis, or edema. No calf tenderness. Negative Homans sign bilaterally. NEUROLOGICAL: Non-focal Psych: Calm and cooperative IV line sites with no e/o infection. Assessment & Plan Remarks Sepsis present on admission E.coli bacteremia: 2/2 UTI, pyelonephritis. : resolved - repeat UA better - no other (+) BC L kidney renal carcinoma DM 2 uncontrolled. Recurrent UTI by history, no renal stones. New onset hypoxia with pulm infiltrates,bandemia and acute VDRF - tolerating extubation - ? ARDS 2/2 new/ worsening infx - CXR better - clinically better - nothing new on C/S Previous abx used: cefepime, levaquin Leukocytosis, improving Recs: Cont Levaquin Also on zosyn Stop Vancomycin Possibly D/C Zosyn if she remains stable Monitor progress Monitor respiratory status post-extubation Follow CBC D/W Mary Call MD September 27, 2016 13:40
[2016-09-27 15:06] LABS: POTASSIUM 4.2 MEQ/L (3.5-5.1)
--- NOTE | 2016-09-27 15:37 | RADRPT ---
EXAM DATE/TIME: 09/27/2016 14:13 [facility] COMPARISON: No previous studies available for comparison. INDICATIONS : Right arm swelling. MEDICAL HISTORY : Carcinoma, thyroid. Hypercholesterolemia. Diabetic. Kidney cancer. SURGICAL HISTORY : section. ENCOUNTER: Initial ACUITY: 1 day PAIN SCORE: 1/10 LOCATION: Right arm. FINDINGS: There is spontaneous flow documented in the brachial, basilic,, axillary, and subclavian veins. The vessels are compressible and augmentation response is documented. No filling defects are seen. The flow is phasic with respiration. Direction of flow in the jugular vein is caudal. Incomplete compression and lack of color Doppler flow in the cephalic vein indicating nonocclusive th rombus. CONCLUSION: 1. No evidence of deep vein thrombosis. 2. Nonocclusive superficial vein thrombosis of the cephalic vein. Chip Crow MD on September 27, 2016 at 15:34 Board Certified Radiologist. This report was verified electronically.
[2016-09-27] MEDS: INSULIN NovoLIN REGULAR SUPPLEMENTAL SCALE SQ SCH ×2 (16:00→21:22)
[2016-09-27] MEDS ORDERED: methylPREDNISolone SOD SUCC 40 MG/1 ML VIAL IV PUSH SCH (20:00)
[2016-09-27] MEDS: INSULIN DETEMIR 100 UNITS/ML VIAL SQ SCH (20:48)
[2016-09-27] MEDS: LEVOFLOXACIN 750 MG PREMIX INJ 150 ML IV SCH (20:49)
[2016-09-27 21:01] LABS: POTASSIUM 4.3 MEQ/L (3.5-5.1)
[2016-09-27] MEDS: PANTOPRAZOLE SODIUM 40 MG VIAL IV PUSH SCH (21:02)
[2016-09-27] MEDS: traZODone HCL 100 MG TAB PO SCH (21:02)
[2016-09-27] MEDS: predniSONE 10 MG TAB PO SCH (21:02)
[2016-09-27 21:06] LABS: MAGNESIUM 1.8 MG/DL (1.5-2.5)
[2016-09-27] MEDS: lamoTRIgine 100 MG TAB PO SCH (21:20)
[2016-09-28] VITALS (14 sets, daily range): BP systolic 139–158; BP diastolic 65–82; PULSE 86–102; RESP 12–34; TEMP 98.4–99.1; O2SAT 90–100
[2016-09-28] MEDS: CHLORHEXIDINE GLUCONATE 2 % 1 PACK (2 CLOTHS)(taper/protocol) TOPICAL SCH (02:25)
[2016-09-28] MEDS: PIPERACIL-TAZO 4.5 GM PREMIX 100 ML IV SCH ×4 (02:31→20:00)
[2016-09-28] MEDS: INSULIN NovoLIN REGULAR SUPPLEMENTAL SCALE SQ SCH ×3 (02:31→11:00)
[2016-09-28 05:05] LABS: AUTOMATED NEUTROPHIL # 9.6 TH/MM3 (1.8-7.7); BASOPHIL % 0.2 % (0.0-2.0); EOSINOPHIL # 0.1 TH/MM3 (0-0.4); EOSINOPHIL % 1.1 % (0.0-4.0); HEMATOCRIT 21.8 % (35.0-46.0); HEMO FLAGS DIFF FINAL; LYMPH % 9.2 % (9.0-44.0); MEAN CELL VOLUME 89.1 FL (80.0-100.0); MEAN CORPUSCULAR HEMOGLOBIN 30.1 PG (27.0-34.0); MEAN CORPUSCULAR HGB CONC 33.8 % (32.0-36.0); MONO % 3.5 % (0.0-8.0); PLATELET COUNT 295 TH/MM3 (150-450); RED BLOOD COUNT 2.45 MIL/MM3 (4.00-5.30); RED CELL DISTRIBUTION WIDTH 13.5 % (11.6-17.2); WHITE BLOOD COUNT 11.2 TH/MM3 (4.0-11.0)
[2016-09-28 05:27] LABS: BICARBONATE 35.1 MEQ/L (21.0-32.0); MAGNESIUM 1.8 MG/DL (1.5-2.5); POTASSIUM 3.1 MEQ/L (3.5-5.1)
[2016-09-28 05:53] LABS: CALCIUM-PROTEIN CORRECTED 8.2 MG/DL (8.5-10.1)
[2016-09-28] MEDS: LEVOTHYROXINE SODIUM 25 MCG TAB PO SCH (06:40)
[2016-09-28] MEDS: LEVOTHYROXINE SODIUM 150 MCG TAB PO SCH (06:41)
[2016-09-28] MEDS: DOCUSATE SODIUM 100 MG CAP PO SCH ×2 (08:00→19:59)
[2016-09-28] MEDS: RESP: ALBUTEROL 2.5 MG/IPRATROPIUM 0.5 MG NEB (SCH) NEB ×2 (08:07→11:34)
[2016-09-28] MEDS: GABAPENTIN 100 MG CAP PO SCH ×3 (08:32→16:28)
[2016-09-28] MEDS: HEPARIN SODIUM - SQ 10,000 UNITS/ML VIAL SQ SCH ×2 (08:32→20:00)
[2016-09-28] MEDS: predniSONE 10 MG TAB PO SCH ×2 (08:32→20:01)
[2016-09-28] MEDS: hydrOXYzine PAMOATE 25 MG CAP PO SCH ×2 (08:32→20:01)
[2016-09-28] MEDS: SODIUM CHLORIDE 0.9% FLUSH 10 ML FLUSH IV FLUSH SCH ×2 (08:33→20:00)
[2016-09-28] MEDS: NICOTINE 14 MG/24 HR PATCH T-DERMAL SCH (08:44)
[2016-09-28] MEDS: VENLAFAXINE HCL XR 75 MG CAP PO SCH (08:44)
[2016-09-28] MEDS: REMOVE OLD PATCH T-DERMAL SCH (08:46)
[2016-09-28] MEDS: POTASSIUM CHLOR 40 MEQ PREMIX 100 ML IV PRN ×2 (08:50→11:18)
[2016-09-28] MEDS: ONDANSETRON HCL 4 MG/2 ML VIAL IVP PRN (08:56)
[2016-09-28] MEDS: INSULIN DETEMIR 100 UNITS/ML VIAL SQ SCH ×2 (09:00→20:03)
--- NOTE | 2016-09-28 09:22 | HHI.PR ---
Subjective Remarks BS at 33 in the morning. Patient BS was in 500s yesterday and detemir was increased to 10 U BID. Will decreased detemir to 5 U BID starting tonight and also will add ISS. Discussed with the nurse. Patient says she feels when her surgery is high or very low. Says she feels nauseated in the morning but no vomiting. No diarrhea. Feel weak and tired. She is breathing well. No feevr or chills overnigh. She is not feeling SOB, satting well on 2L NC. Objective Vitals Vital Signs Date Time Temp Pulse Resp B/P Pulse Ox O2 Delivery O2 Flow Rate FiO2 09/28/16 08:08 100 Nasal Cannula 2.00 09/28/16 06:00 88 09/28/16 04:00 102 09/28/16 04:00 98.7 95 20 152/75 97 09/28/16 02:00 97 09/28/16 00:00 98.9 94 20 139/65 95 09/28/16 00:00 94 09/27/16 22:00 96 09/27/16 20:37 97 Nasal Cannula 2.00 09/27/16 20:00 99.3 104 22 149/70 96 09/27/16 20:00 104 09/27/16 18:00 106 09/27/16 16:00 106 09/27/16 16:00 99.9 96 12 135/61 99 09/27/16 14:00 104 09/27/16 12:00 99.7 107 12 139/65 96 09/27/16 12:00 105 09/27/16 10:00 105 I/O 09/27/16 09/27/16 09/27/16 09/28/16 09/28/16 09/28/16 07:00 15:00 23:00 07:00 15:00 23:00 Intake Total 932 ml 750 ml 1135 ml 222 ml Output Total 1050 ml 1500 ml 1600 ml 1600 ml Balance -118 ml -750 ml -465 ml -1378 ml Intake Oral 800 ml 600 ml 600 ml IV Total 132 ml 150 ml 535 ml 222 ml Output Urine Total 1050 ml 1500 ml 1600 ml 1600 ml Stool Total 0 ml # Bowel Movements 1 Result Diagram: 09/28/16 0420 09/28/16 0420 Imaging Last Impressions Upper Extremity Ultrasound 09/27/16 Signed Impressions: Service Date/Time: Tuesday, September 27, 2016 14:13 - CONCLUSION: 1. No evidence of deep vein thrombosis. 2. Nonocclusive superficial vein thrombosis of the cephalic vein. Chip Crow MD Chest X-Ray 09/26/16 Signed Impressions: Service Date/Time: Monday, September 26, 2016 03:51 - CONCLUSION: Improving aeration Jack Sung MD Abdomen X-Ray 09/25/16 Signed Impressions: Service Date/Time: Sunday, September 25, 2016 10:29 - CONCLUSION: Feeding tube distal tip is in the gastric cardia region, barely beyond the GE junction. This should be advanced prior to use. Jack Hinojosa MD Abdomen/Pelvis CT 09/24/162132 Signed Impressions: Service Date/Time: Sunday, September 25, 2016 02:33 - CONCLUSION: Bilateral renal masses. Lesion on the left is highly suspicious for renal carcinoma. Jack Sung MD Chest CT 09/24/16 Signed Impressions: Service Date/Time: Sunday, September 25, 2016 02:33 - CONCLUSION: Diffuse airspace disease. Small bilateral pleural effusions. Possibly reactive mediastinal karen enlargement. Jack Sung MD Lumbar Spine MRI 09/21/16 Signed Impressions: Service Date/Time: August 09:54 - CONCLUSION: 1. At L4-5 there is focally advanced degenerative disc disease with endplate marrow changes, marked disc space narrowing and mild enhancement on both sides of the disc interspace post contrast. There is a moderate-sized disc protrusion that results in a moderate stenosis of the lateral recesses. The degree of enhancement is less than would be expected with a discitis or osteomyelitis. No evidence for epidural abscess. No acute fracture or spondylolisthesis. 2. At L3-4 there is a moderate-sized broad-based disc protrusion, right worse than left resulting in a right-sided lateral recess stenosis and mild left lateral recess stenosis. Nestor Rodriguez MD Objective Remarks GENERAL: Very pleasant 51 yo F, appearing in nad. CARDIOVASCULAR: RRR, mildly tachycardic. No murmurs. RESPIRATORY: Decreased breath sounds. Fine crackles lower lung field. No wheezing. GASTROINTESTINAL: Abdomen soft, nondistended. No guarding or rebound. MUSCULOSKELETAL: No joint tenderness, effusion. No LE edema noted. NEUROLOGICAL: Awake and alert. Moves extremities well. A/P Problem List: (1) DKA (diabetic ketoacidoses) ICD Code: E13.10 Status: Acute (2) Sepsis ICD Code: A41.9 Status: Acute (3) UTI (urinary tract infection) ICD Code: N39.0 Status: Acute (4) Renal insufficiency ICD Code: N28.9 Status: Acute (5) Tobacco abuse ICD Code: Z72.0 Status: Acute (6) Nausea & vomiting ICD Code: R11.2 Status: Acute Assessment and Plan RESP: Acute hypoxemic respiratory failure with noncardiogenic pulmonary edema resolving, currently on nasal canula. Was intubated and extubated on 09/26/16. History of tobaccoism Nasal cannula to maintain saturations greater or equal to 92% Incentive spirometry while awake DuoNeb Bronchodilators every 4 hours while awake and every 2 hours as needed On Solumederol 40mg Q8 Follow-up on chest x-ray in a.m. Nicotine patch 14 mg daily. Cessation encouraged FEN/RENAL: Hypokalemia Hypophosphatemia Hypomagnesemia Acute kidney injury Bilateral renal masses left side 6 cm right-sided 1 cm Monitor renal function, I/O;s, electrolytes replacement per protocol. Will need K, replacement today by IV as patient is nauseated Follow BMP in a.m. Will need appropriate nephrology/urology evaluation once medically stabilized for bilateral renal masses ID: Escherichia coli bacteremia/UTI Continue with abx (Vanco, Zosyn, Levaquin) ID is following. Monitor for signs of infections ( Fever, WBC) Follow up on blood and urine cxs from 09/24 Strep pneumonia and Legionella urinary Ag negative 09/18 BC, urine cx: E.coli 09/19,09/20: Blood cultures: No growth 09/24 - blood cultures no growth 09/24 - urine no growth 09/25 - sputum no growth CV: Hyperlipidemia Monitor HR and BP keep MAP>65mmHg Echo showed EF 55-60%. Lactic acid: 1.6 On Zocor 20 mg at night at home for dyslipidemia GI: Chronic pancreatitis GERD Bowel regimen per protocol with Colace 100 mg twice a day On Protonix 40mg daily ADA diet. HEME: Leukocytosis Anemia Monitor CBC ENDO: Hypothyroidism -Synthroid 175 g by mouth daily Diabetes mellitus, labile On SSI high scale with Accu-Cheks before meals/at bedtime. Decrease Levemir to 5 units twice a day as noted hypoglycemic morning 09/28. Monitor BS. NEURO/PSYCH: THC use Bipolar disorder Peripheral neuropathy Chronic opiate use History of IV drug use History of alcoholism quit 17 years ago Acetaminophen for fever/pain Oxycodone5 mill grams every 4 hours as needed for pain. Morphine 3 mg IV as needed for breakthrough pain Continue Lamictal 200 mg at night, trazodone 4 mill grams a night and Effexor 50 mg daily for depression/bipolar disorder Decreased Neurontin from 600 3 times a day 100 milligrams 3 times a day for neuropathy. Vistaril 25 mg twice a day for anxiety Physical deconditioning, PT/OT evaluation PROPH: SCDs and heparin 5000 units subcutaneous every 12 hours for DVT prophylaxis. ACCESS: Left IJ CVP placed 09/25 DC plan: Improving. will have PT eval patient might need rehab. Poss transfer to med /surg floor later today Problem Qualifiers (1) DKA (diabetic ketoacidoses): Qualified Code: E10.10 - Diabetic ketoacidosis without coma associated with type 1 diabetes mellitus (2) UTI (urinary tract infection): Qualified Code: N39.0 - Urinary tract infection without hematuria, site unspecified (3) Nausea & vomiting: Qualified Code: R11.2 - Intractable vomiting with nausea, unspecified vomiting type Radha Underwood MD Sep 28, 2016 09:22
[2016-09-28] MEDS: INSULIN ASPART SUPPLEMENTAL SCALE SQ SCH ×3 (11:00→20:21)
[2016-09-28] MEDS: MORPHINE SULFATE 4 MG/ML INJ IV PRN ×2 (14:10→20:26)
--- NOTE | 2016-09-28 19:43 | HHI.PR ---
Subjective Remarks 51 YOWF with VDRF,Bilat Infilt, E.coli UTI Extubated Weaned to NC Feels much better Good appetite Anxious to go home. Objective Vital Signs Vital Signs Date Time Temp Pulse Resp B/P Pulse Ox O2 Delivery O2 Flow Rate FiO2 09/28/16 18:00 100 09/28/16 16:00 98.6 96 32 155/72 94 09/28/16 16:00 91 09/28/16 14:00 92 09/28/16 12:00 98.5 101 12 144/69 90 09/28/16 12:00 101 09/28/16 10:00 101 09/28/16 10:00 101 09/28/16 08:08 100 Nasal Cannula 2.00 09/28/16 08:00 86 09/28/16 08:00 98.4 86 34 158/82 100 09/28/16 06:00 88 09/28/16 04:00 102 09/28/16 04:00 98.7 95 20 152/75 97 09/28/16 02:00 97 09/28/16 00:00 98.9 94 20 139/65 95 09/28/16 00:00 94 09/27/16 22:00 96 09/27/16 20:37 97 Nasal Cannula 2.00 09/27/16 20:00 99.3 104 22 149/70 96 09/27/16 20:00 104 I/O 09/27/16 09/27/16 09/27/16 09/28/16 09/28/16 09/28/16 07:00 15:00 23:00 07:00 15:00 23:00 Intake Total 932 ml 750 ml 1135 ml 222 ml 1345 ml Output Total 1050 ml 1500 ml 1600 ml 1600 ml 1200 ml Balance -118 ml -750 ml -465 ml -1378 ml 145 ml Intake Oral 800 ml 600 ml 600 ml 800 ml IV Total 132 ml 150 ml 535 ml 222 ml 545 ml Output Urine Total 1050 ml 1500 ml 1600 ml 1600 ml 1200 ml Stool Total 0 ml # Bowel Movements 1 1 Result Diagram: 09/28/16 0420 09/28/16 1740 Objective Remarks GENERAL: MBMN WF, on Vent SKIN: Warm and dry. HEAD: Normocephalic. EYES: No scleral icterus. No injection or drainage. NECK: Supple, trachea midline. No JVD or lymphadenopathy. CARDIOVASCULAR: Regular rate and rhythm without murmurs, gallops, or rubs. RESPIRATORY: Breath sounds equal bilaterally. No accessory muscle use. GASTROINTESTINAL: Abdomen soft, non-tender, nondistended. MUSCULOSKELETAL: No cyanosis, or edema. BACK: Nontender without obvious deformity. No CVA tenderness. A/P Assessment and Plan VDRF, s/p extubation Bilat Infilt E.coli UTI Ch Pain PLAN: Cont Abx Aerosol nebs Supplement 02 Wean 02 to keep sat >92% Stable to tr to floor Oneal Russell MD Sep 28, 2016 19:43
[2016-09-28] MEDS: PANTOPRAZOLE SODIUM 40 MG VIAL IV PUSH SCH (19:59)
[2016-09-28] MEDS: lamoTRIgine 100 MG TAB PO SCH (20:00)
[2016-09-28] MEDS: traZODone HCL 100 MG TAB PO SCH (20:01)
[2016-09-28] MEDS: LEVOFLOXACIN 750 MG PREMIX INJ 150 ML IV SCH (21:54)
[2016-09-29] VITALS (25 sets, daily range): BP systolic 134–178; BP diastolic 65–86; PULSE 77–107; RESP 11–48; TEMP 98.3–98.9; O2SAT 90–100
[2016-09-29] MEDS: CHLORHEXIDINE GLUCONATE 2 % 1 PACK (2 CLOTHS)(taper/protocol) TOPICAL SCH (00:56)
[2016-09-29] MEDS: PIPERACIL-TAZO 4.5 GM PREMIX 100 ML IV SCH ×2 (02:36→08:00)
[2016-09-29] MEDS: MORPHINE SULFATE 4 MG/ML INJ IV PRN ×4 (03:31→21:38)
[2016-09-29 04:21] LABS: AUTOMATED NEUTROPHIL # 9.8 TH/MM3 (1.8-7.7); BASOPHIL % 0.1 % (0.0-2.0); EOSINOPHIL # 0.3 TH/MM3 (0-0.4); EOSINOPHIL % 2.7 % (0.0-4.0); HEMATOCRIT 25.9 % (35.0-46.0); HEMO FLAGS DIFF FINAL; LYMPH % 7.6 % (9.0-44.0); LYMPHOCYTE # 0.9 TH/MM3 (1.0-4.8); MEAN CELL VOLUME 91.3 FL (80.0-100.0); MEAN CORPUSCULAR HGB CONC 32.8 % (32.0-36.0); MONO % 3.5 % (0.0-8.0); NEUT % 86.1 % (16.0-70.0); PLATELET COUNT 323 TH/MM3 (150-450); RED BLOOD COUNT 2.84 MIL/MM3 (4.00-5.30); RED CELL DISTRIBUTION WIDTH 13.6 % (11.6-17.2); WHITE BLOOD COUNT 11.3 TH/MM3 (4.0-11.0)
[2016-09-29 04:43] LABS: BICARBONATE 35.8 MEQ/L (21.0-32.0); MAGNESIUM 1.8 MG/DL (1.5-2.5); POTASSIUM 4.3 MEQ/L (3.5-5.1)
[2016-09-29] MEDS: LEVOTHYROXINE SODIUM 25 MCG TAB PO SCH (05:10)
[2016-09-29] MEDS: LEVOTHYROXINE SODIUM 150 MCG TAB PO SCH (05:10)
[2016-09-29] MEDS: INSULIN ASPART SUPPLEMENTAL SCALE SQ SCH ×4 (06:28→21:00)
[2016-09-29] MEDS: VENLAFAXINE HCL XR 75 MG CAP PO SCH (07:57)
[2016-09-29] MEDS: GABAPENTIN 100 MG CAP PO SCH ×3 (07:57→17:07)
[2016-09-29] MEDS: hydrOXYzine PAMOATE 25 MG CAP PO SCH ×2 (07:57→21:37)
[2016-09-29] MEDS: NICOTINE 14 MG/24 HR PATCH T-DERMAL SCH (07:58)
[2016-09-29] MEDS: HEPARIN SODIUM - SQ 10,000 UNITS/ML VIAL SQ SCH ×2 (07:58→21:37)
[2016-09-29] MEDS: REMOVE OLD PATCH T-DERMAL SCH (07:58)
[2016-09-29] MEDS: INSULIN DETEMIR 100 UNITS/ML VIAL SQ SCH ×2 (07:59→21:00)
[2016-09-29] MEDS: DOCUSATE SODIUM 100 MG CAP PO SCH ×2 (08:00→21:36)
[2016-09-29] MEDS: predniSONE 10 MG TAB PO SCH ×2 (08:01→21:37)
[2016-09-29] MEDS: SODIUM CHLORIDE 0.9% FLUSH 10 ML FLUSH IV FLUSH SCH ×2 (08:02→21:38)
--- NOTE | 2016-09-29 11:44 | HHI.PR ---
Subjective Remarks Feels much better today. BS is better controlled. SOB improved. She is however dessating on room air at 80s, currently on 2L NC satting well. No fever or chills. No n/v/d/c. Denies chest pain. Objective Vitals Vital Signs Date Time Temp Pulse Resp B/P Pulse Ox O2 Delivery O2 Flow Rate FiO2 09/29/16 09:20 94 Nasal Cannula 2.00 09/29/16 08:00 98.8 80 14 153/85 94 09/29/16 08:00 80 09/29/16 07:00 90 19 154/83 95 09/29/16 06:00 81 09/29/16 06:00 81 11 159/76 100 09/29/16 05:12 84 20 152/86 94 09/29/16 05:00 80 20 138/72 95 09/29/16 04:00 98.7 80 22 151/75 99 09/29/16 04:00 80 09/29/16 02:00 77 09/29/16 00:00 85 09/29/16 00:00 98.9 85 20 134/65 99 09/28/16 22:00 87 09/28/16 20:35 96 Nasal Cannula 2.00 09/28/16 20:00 96 09/28/16 20:00 99.1 96 20 151/69 93 09/28/16 18:00 100 09/28/16 16:00 98.6 96 32 155/72 94 09/28/16 16:00 91 09/28/16 14:00 92 09/28/16 12:00 98.5 101 12 144/69 90 09/28/16 12:00 101 I/O 09/28/16 09/28/16 09/28/16 09/29/16 09/29/16 09/29/16 07:00 15:00 23:00 07:00 15:00 23:00 Intake Total 222 ml 1345 ml 639 ml 871 ml Output Total 1600 ml 1200 ml 1000 ml 2100 ml Balance -1378 ml 145 ml -361 ml -1229 ml Intake Oral 800 ml 400 ml 600 ml IV Total 222 ml 545 ml 239 ml 271 ml Output Urine Total 1600 ml 1200 ml 1000 ml 2100 ml # Bowel Movements 1 1 0 1 Result Diagram: 09/29/1633609/29/16336 Imaging Last Impressions Upper Extremity Ultrasound 09/27/16 0000 Signed Impressions: Service Date/Time: Tuesday, September 27, 2016 14:13 - CONCLUSION: 1. No evidence of deep vein thrombosis. 2. Nonocclusive superficial vein thrombosis of the cephalic vein. Chip Crow MD Chest X-Ray 09/26/16 0000 Signed Impressions: Service Date/Time: Monday, September 26, 2016 03:51 - CONCLUSION: Improving aeration Jack Sung MD Abdomen X-Ray 09/25/16 0000 Signed Impressions: Service Date/Time: Sunday, September 25, 2016 10:29 - CONCLUSION: Feeding tube distal tip is in the gastric cardia region, barely beyond the GE junction. This should be advanced prior to use. Jack Hinojosa MD Abdomen/Pelvis CT 09/24/162132 Signed Impressions: Service Date/Time: Sunday, September 25, 2016 02:33 - CONCLUSION: Bilateral renal masses. Lesion on the left is highly suspicious for renal carcinoma. Jack Sung MD Chest CT 09/24/16 0000 Signed Impressions: Service Date/Time: Sunday, September 25, 2016 02:33 - CONCLUSION: Diffuse airspace disease. Small bilateral pleural effusions. Possibly reactive mediastinal karen enlargement. Jack Sung MD Lumbar Spine MRI 09/21/16 0000 Signed Impressions: Service Date/Time: August 09:54 - CONCLUSION: 1. At L4-5 there is focally advanced degenerative disc disease with endplate marrow changes, marked disc space narrowing and mild enhancement on both sides of the disc interspace post contrast. There is a moderate-sized disc protrusion that results in a moderate stenosis of the lateral recesses. The degree of enhancement is less than would be expected with a discitis or osteomyelitis. No evidence for epidural abscess. No acute fracture or spondylolisthesis. 2. At L3-4 there is a moderate-sized broad-based disc protrusion, right worse than left resulting in a right-sided lateral recess stenosis and mild left lateral recess stenosis. Nestor Rodriguez MD Objective Remarks GENERAL: Very pleasant 51 yo F, appearing in nad. CARDIOVASCULAR: RRR, mildly tachycardic. No murmurs. RESPIRATORY: Decreased breath sounds, however improving. No wheezing. GASTROINTESTINAL: Abdomen soft, nondistended. No guarding or rebound. MUSCULOSKELETAL: No joint tenderness, effusion. No LE edema noted. NEUROLOGICAL: Awake and alert. Moves extremities well. A/P Problem List: (1) DKA (diabetic ketoacidoses) ICD Code: E13.10 Status: Acute (2) Sepsis ICD Code: A41.9 Status: Acute (3) UTI (urinary tract infection) ICD Code: N39.0 Status: Acute (4) Renal insufficiency ICD Code: N28.9 Status: Acute (5) Tobacco abuse ICD Code: Z72.0 Status: Acute (6) Nausea & vomiting ICD Code: R11.2 Status: Acute Assessment and Plan RESP: Acute hypoxemic respiratory failure with noncardiogenic pulmonary edema resolving, currently on nasal canula. Was intubated and extubated on 09/26/16. History of tobaccoism Nasal cannula to maintain saturations greater or equal to 92% Incentive spirometry while awake DuoNeb Bronchodilators every 4 hours while awake and every 2 hours as needed On Solumederol 40mg Q8 Follow-up on chest x-ray in a.m. Nicotine patch 14 mg daily. Cessation encouraged FEN/RENAL: Hypokalemia Hypophosphatemia Hypomagnesemia Acute kidney injury Bilateral renal masses left side 6 cm right-sided 1 cm Monitor renal function, I/O;s, electrolytes replacement per protocol. Will need K, replacement today by IV as patient is nauseated Follow BMP in a.m. Will need appropriate nephrology/urology evaluation once medically stabilized for bilateral renal masses ID: Escherichia coli bacteremia/UTI Continue with abx (Vanco, Zosyn, Levaquin) ID is following. Monitor for signs of infections ( Fever, WBC) Follow up on blood and urine cxs from 09/24 Strep pneumonia and Legionella urinary Ag negative 09/18 BC, urine cx: E.coli 09/19,09/20: Blood cultures: No growth 09/24 - blood cultures no growth 09/24 - urine no growth 09/25 - sputum no growth Remove gilbert and central line 09/29. CV: Hyperlipidemia Monitor HR and BP keep MAP>65mmHg Echo showed EF 55-60%. Lactic acid: 1.6 On Zocor 20 mg at night at home for dyslipidemia GI: Chronic pancreatitis GERD Bowel regimen per protocol with Colace 100 mg twice a day On Protonix 40mg daily ADA diet. HEME: Leukocytosis Anemia Monitor CBC ENDO: Hypothyroidism -Synthroid 175 g by mouth daily Diabetes mellitus, labile On SSI high scale with Accu-Cheks before meals/at bedtime. Continue Levemir to 5 units twice a day (was decreased) as noted hypoglycemic morning 09/28. Monitor BS. NEURO/PSYCH: THC use Bipolar disorder Peripheral neuropathy Chronic opiate use History of IV drug use History of alcoholism quit 17 years ago Acetaminophen for fever/pain Oxycodone5 mill grams every 4 hours as needed for pain. Morphine 3 mg IV as needed for breakthrough pain Continue Lamictal 200 mg at night, trazodone 4 mill grams a night and Effexor 50 mg daily for depression/bipolar disorder Decreased Neurontin from 600 3 times a day 100 milligrams 3 times a day for neuropathy. Vistaril 25 mg twice a day for anxiety Physical deconditioning, PT/OT evaluation PROPH: SCDs and heparin 5000 units subcutaneous every 12 hours for DVT prophylaxis. ACCESS: Left IJ CVP placed 09/25 DC plan: Improving. will have PT eval patient might need rehab. Transfer to med /surg floor Problem Qualifiers (1) DKA (diabetic ketoacidoses): Qualified Code: E10.10 - Diabetic ketoacidosis without coma associated with type 1 diabetes mellitus (2) UTI (urinary tract infection): Qualified Code: N39.0 - Urinary tract infection without hematuria, site unspecified (3) Nausea & vomiting: Qualified Code: R11.2 - Intractable vomiting with nausea, unspecified vomiting type Radha Underwood MD Sep 29, 2016 11:44
--- NOTE | 2016-09-29 12:43 | HHI.IDPN ---
Subjective Subjective Remarks is a 51 y/o CF with PMHx of renal cancer s.p partial resection of left kidney, thyroid cancer s.p thyroidectomy, DM 2 on insulin and recurrent UTIs. Patient reports to me "This is first time I have been told I have sepsis and I have never been treated for detention infections". With this background patient presents to the hospital with nausea and vomiting as well as abdominal pain. The patient says that she ate a salad bar last night and shortly thereafter started to feel sick. She said she initially felt chills and then developed stomach pain along with nausea and vomiting. She says she has been vomiting all night and all day. The patient states her abdominal pain is a 9 out of 10 in severity. It is located at the center of her abdomen. She also describes low back pain which she attributes to possibly her kidneys. She also has pain in the back of her thighs. She says she does feel this way when her sugars get out of control sometimes. She denies any pain on urination this time although endorses a h/o recurrent UTIs and being on antibiotics. Last time she was on antibiotics was 3 months back for a UTI. She says she is currently visiting from [place]. She says she does tend to come to the hospital frequently secondary to her brittle diabetes. Sepsis workup initiated and blood cultures positive. ID consulted for evaluation and Mment of Sepsis, Gram negative bacteremia. Notes reviewed since last seen. On 09/23 C/O SOB CXR 09/23 with new infiltrates Transferred to [facility] Intubated 09/25. Currently on nasal O2 and denies SOB Stood up and sat bedside. No CP Ct A/P with steph renal masses, large on L Patient states she had surgical removal of L renal CA in 2006 - no other Rx for her CA States she has fup with her MD Patient not good historian Antibiotics levaquine zosyn vanco Lines Line sites with no e/o infection Past Medical History Past Medical History Diabetes Degenerative disc disease Pancreatitis Recurrent UTIs Past Surgical History Left kidney cancer status post surgery Thyroid cancer status post thyroidectomy. Allergies: Coded Allergies: Sulfa (Verified Allergy, Severe, Hives, 09/18/16) Objective . Vital Signs Date Time Temp Pulse Resp B/P Pulse Ox O2 Delivery O2 Flow Rate FiO2 09/29/16 12:00 84 09/29/16 12:00 98.9 84 17 145/78 98 09/29/16 11:00 93 19 141/72 93 09/29/16 11:00 93 09/29/16 10:48 97 17 148/75 90 09/29/16 10:48 97 09/29/16 10:00 104 24 92 09/29/16 10:00 104 09/29/16 09:42 104 09/29/16 09:42 104 16 140/69 93 09/29/16 09:20 94 Nasal Cannula 2.00 09/29/16 09:00 87 28 170/81 96 09/29/16 09:00 87 09/29/16 08:00 98.8 80 14 153/85 94 09/29/16 08:00 80 09/29/16 07:00 90 19 154/83 95 09/29/16 06:00 81 09/29/16 06:00 81 11 159/76 100 09/29/16 05:12 84 20 152/86 94 09/29/16 05:00 80 20 138/72 95 09/29/16 04:00 98.7 80 22 151/75 99 09/29/16 04:00 80 09/29/16 02:00 77 09/29/16 00:00 85 09/29/16 00:00 98.9 85 20 134/65 99 09/28/16 22:00 87 09/28/16 20:35 96 Nasal Cannula 2.00 09/28/16 20:00 96 09/28/16 20:00 99.1 96 20 151/69 93 09/28/16 18:00 100 09/28/16 16:00 98.6 96 32 155/72 94 09/28/16 16:00 91 09/28/16 14:00 92 09/28/16 09/28/16 09/29/16 15:00 23:00 07:00 Intake Total 1345 ml 639 ml 871 ml Output Total 1200 ml 1000 ml 2100 ml Balance 145 ml -361 ml -1229 ml Intake Oral 800 ml 400 ml 600 ml IV Total 545 ml 239 ml 271 ml Output Urine Total 1200 ml 1000 ml 2100 ml # Bowel Movements 1 0 1 . Laboratory Tests Test 09/28/16 09/29/16 04:20 03:37 White Blood Count 11.2 TH/MM3 11.3 TH/MM3 Red Blood Count 2.45 MIL/MM3 2.84 MIL/MM3 Hemoglobin 7.4 GM/DL 8.5 GM/DL Hematocrit 21.8 % 25.9 % Mean Corpuscular Volume 89.1 FL 91.3 FL Mean Corpuscular Hemoglobin 30.1 PG 30.0 PG Mean Corpuscular Hemoglobin 33.8 % 32.8 % Concent Red Cell Distribution Width 13.5 % 13.6 % Platelet Count 295 TH/MM3 323 TH/MM3 Mean Platelet Volume 8.0 FL 8.3 FL Neutrophils (%) (Auto) 86.0 % 86.1 % Lymphocytes (%) (Auto) 9.2 % 7.6 % Monocytes (%) (Auto) 3.5 % 3.5 % Eosinophils (%) (Auto) 1.1 % 2.7 % Basophils (%) (Auto) 0.2 % 0.1 % Neutrophils # (Auto) 9.6 TH/MM3 9.8 TH/MM3 Lymphocytes # (Auto) 1.0 TH/MM3 0.9 TH/MM3 Monocytes # (Auto) 0.4 TH/MM3 0.4 TH/MM3 Eosinophils # (Auto) 0.1 TH/MM3 0.3 TH/MM3 Basophils # (Auto) 0.0 TH/MM3 0.0 TH/MM3 CBC Comment DIFF FINAL DIFF FINAL Differential Comment Laboratory Tests Test 09/27/16 09/27/16 09/28/16 09/28/16 14:05 16:20 04:20 17:40 Potassium Level 4.2 MEQ/L 4.3 MEQ/L 3.1 MEQ/L 4.4 MEQ/L Phosphorus Level 1.9 MG/DL 2.5 MG/DL 3.0 MG/DL Random Glucose 561 MG/DL 53 MG/DL Magnesium Level 1.8 MG/DL 1.8 MG/DL Sodium Level 143 MEQ/L Chloride Level 102 MEQ/L Carbon Dioxide Level 35.1 MEQ/L Anion Gap 6 MEQ/L Blood Urea Nitrogen 25 MG/DL Creatinine 1.13 MG/DL Estimat Glomerular Filtration 51 ML/MIN Rate Calcium Level 7.1 MG/DL Protein Corrected Calcium 8.2 MG/DL Total Protein 5.0 GM/DL Test 09/29/16 03:37 Sodium Level 142 MEQ/L Potassium Level 4.3 MEQ/L Chloride Level 101 MEQ/L Carbon Dioxide Level 35.8 MEQ/L Anion Gap 5 MEQ/L Blood Urea Nitrogen 20 MG/DL Creatinine 1.10 MG/DL Estimat Glomerular Filtration 53 ML/MIN Rate Random Glucose 123 MG/DL Calcium Level 7.6 MG/DL Phosphorus Level 2.6 MG/DL Magnesium Level 1.8 MG/DL Imaging Chest X-Ray 09/26/16 Signed Impressions: Service Date/Time: Monday, September 26, 2016 03:51 - CONCLUSION: Improving aeration Jack Sung MD Last Impressions Chest X-Ray 09/25/16 Signed Impressions: Service Date/Time: Sunday, September 25, 2016 05:43 - CONCLUSION: Satisfactory Central line and ET tube positioning. Slightly improved aeration Jack Sung MD Abdomen X-Ray 09/25/16 Signed Impressions: Service Date/Time: Sunday, September 25, 2016 10:29 - CONCLUSION: Feeding tube distal tip is in the gastric cardia region, barely beyond the GE junction. This should be advanced prior to use. Jack Hinojosa MD Abdomen/Pelvis CT 09/24/162132 Signed Impressions: Service Date/Time: Sunday, September 25, 2016 02:33 - CONCLUSION: Bilateral renal masses. Lesion on the left is highly suspicious for renal carcinoma. Jack Sung MD Chest CT 09/24/16 Signed Impressions: Service Date/Time: Sunday, September 25, 2016 02:33 - CONCLUSION: Diffuse airspace disease. Small bilateral pleural effusions. Possibly reactive mediastinal karen enlargement. Jack Sung MD Lumbar Spine MRI 09/21/16 Signed Impressions: Service Date/Time: August 09:54 - CONCLUSION: 1. At L4-5 there is focally advanced degenerative disc disease with endplate marrow changes, marked disc space narrowing and mild enhancement on both sides of the disc interspace post contrast. There is a moderate-sized disc protrusion that results in a moderate stenosis of the lateral recesses. The degree of enhancement is less than would be expected with a discitis or osteomyelitis. No evidence for epidural abscess. No acute fracture or spondylolisthesis. 2. At L3-4 there is a moderate-sized broad-based disc protrusion, right worse than left resulting in a right-sided lateral recess stenosis and mild left lateral recess stenosis. Nestor Rodriguez MD Physical Exam GENERAL: Awake and alert. No distress SKIN: No rashes, ecchymoses or lesions. Cool and dry. HEAD: Atraumatic. Normocephalic. No temporal or scalp tenderness. EYES: No scleral icterus. No injection or drainage. ENT: Nose without bleeding, purulent drainage or septal hematoma. Oral mucosae without erythema, tonsillar hypertrophy or exudate. NECK: Trachea midline. CARDIOVASCULAR: RRR without murmur. RESPIRATORY: Clear to auscultation. Breath sounds equal bilaterally. No wheezes , rales, or rhonchi. GASTROINTESTINAL: Abdomen soft, not tender, not distended. MUSCULOSKELETAL: Extremities without clubbing, cyanosis, or edema. No calf tenderness. Negative Homans sign bilaterally. NEUROLOGICAL: Non-focal Psych: Calm and cooperative IV line sites with no e/o infection. Assessment & Plan Remarks Sepsis present on admission E.coli bacteremia: 2/2 UTI, pyelonephritis. L kidney renal carcinoma s/p partial resection. DM 2 uncontrolled. Recurrent UTI by history, no renal stones. New onset hypoxia with pulm infiltrates,bandemia and acute VDRF - ? ARDS 2/2 new/ worsening infx - non cardiogenic ( BNP is clearly above nl), troponin neg; recent echo with nl EF Acute COPD exacerbation Long time smoker ( 1 ppd for 30 yrs) Recs: Cont Levaquin (stop date entered in chart) DC Zosyn IV DC Vanco IV Monitor progress Monitor respiratory status Follow CBC If continues to do well patient may be discharged as deemed suitable by primary team. Ok to DC from ID standpoint. Will sign off please call back if any change in clinical condition or questions. D/W RN and . Gianna Gibson MD Sep 29, 2016 12:42
[2016-09-29] MEDS: LEVOFLOXACIN 750 MG TAB PO SCH (13:23)
--- NOTE | 2016-09-29 18:08 | HHI.PR ---
Subjective Remarks 51 YOWF with VDRF,Bilat Infilt, E.coli UTI Weaned to NC Feels much better Good appetite Anxious to go home. Objective Vital Signs Vital Signs Date Time Temp Pulse Resp B/P Pulse Ox O2 Delivery O2 Flow Rate FiO2 09/29/16 16:20 98.8 93 37 178/86 95 09/29/16 16:20 93 09/29/16 15:00 107 48 97 09/29/16 14:00 84 09/29/16 13:00 96 30 170/79 92 09/29/16 12:00 84 09/29/16 12:00 98.9 84 17 145/78 98 09/29/16 11:00 93 19 141/72 93 09/29/16 11:00 93 09/29/16 10:48 97 17 148/75 90 09/29/16 10:48 97 09/29/16 10:00 104 24 92 09/29/16 10:00 104 09/29/16 09:42 104 09/29/16 09:42 104 16 140/69 93 09/29/16 09:20 94 Nasal Cannula 2.00 09/29/16 09:00 87 28 170/81 96 09/29/16 09:00 87 09/29/16 08:00 98.8 80 14 153/85 94 09/29/16 08:00 80 09/29/16 07:00 90 19 154/83 95 09/29/16 06:00 81 09/29/16 06:00 81 11 159/76 100 09/29/16 05:12 84 20 152/86 94 09/29/16 05:00 80 20 138/72 95 09/29/16 04:00 98.7 80 22 151/75 99 09/29/16 04:00 80 09/29/16 02:00 77 09/29/16 00:00 85 09/29/16 00:00 98.9 85 20 134/65 99 09/28/16 22:00 87 09/28/16 20:35 96 Nasal Cannula 2.00 09/28/16 20:00 96 09/28/16 20:00 99.1 96 20 151/69 93 I/O 09/28/16 09/28/16 09/28/16 09/29/16 09/29/16 09/29/16 06:59 14:59 22:59 06:59 14:59 22:59 Intake Total 222 ml 1345 ml 639 ml 871 ml 1060 ml Output Total 1600 ml 1200 ml 1000 ml 2100 ml 1025 ml Balance -1378 ml 145 ml -361 ml -1229 ml 35 ml Intake Oral 800 ml 400 ml 600 ml 960 ml IV Total 222 ml 545 ml 239 ml 271 ml 100 ml Output Urine Total 1600 ml 1200 ml 1000 ml 2100 ml 1025 ml # Bowel Movements 1 1 0 1 1 Result Diagram: 09/29/1633609/29/16336 Objective Remarks GENERAL: MBMN WF, on Vent SKIN: Warm and dry. HEAD: Normocephalic. EYES: No scleral icterus. No injection or drainage. NECK: Supple, trachea midline. No JVD or lymphadenopathy. CARDIOVASCULAR: Regular rate and rhythm without murmurs, gallops, or rubs. RESPIRATORY: Breath sounds equal bilaterally. No accessory muscle use. GASTROINTESTINAL: Abdomen soft, non-tender, nondistended. MUSCULOSKELETAL: No cyanosis, or edema. BACK: Nontender without obvious deformity. No CVA tenderness. A/P Assessment and Plan VDRF, s/p extubation Bilat Infilt E.coli UTI Ch Pain PLAN: Cont Abx Zosyn per ID Aerosol nebs Supplement 02 Wean 02 to keep sat >92% Stable to tr to floor Oneal Russell MD Sep 29, 2016 18:08
[2016-09-29] MEDS: traZODone HCL 100 MG TAB PO SCH (21:37)
[2016-09-29] MEDS: lamoTRIgine 100 MG TAB PO SCH (21:37)
[2016-09-29] MEDS: PANTOPRAZOLE SODIUM 40 MG VIAL IV PUSH SCH (21:37)
[2016-09-30] VITALS (11 sets, daily range): BP systolic 127–147; BP diastolic 60–78; PULSE 79–107; RESP 16–29; TEMP 97.4–98.6; O2SAT 92–100
[2016-09-30] MEDS: LEVOTHYROXINE SODIUM 25 MCG TAB PO SCH (06:00)
[2016-09-30] MEDS: LEVOTHYROXINE SODIUM 150 MCG TAB PO SCH (06:00)
[2016-09-30] MEDS: INSULIN ASPART SUPPLEMENTAL SCALE SQ SCH ×4 (06:31→21:29)
[2016-09-30] MEDS: DOCUSATE SODIUM 100 MG CAP PO SCH ×2 (08:00→20:00)
[2016-09-30] MEDS ORDERED: LEVEMIR SQ (08:17)
--- NOTE | 2016-09-30 08:18 | HHI.DS ---
Discharge Summary Admission Date September 18, 2016 at 19:16 Discharge Date: Oct 01, 2016 Admitting Diagnosis DKA, UTI (1) DKA (diabetic ketoacidoses) ICD Code: E13.10 Diagnosis: Principal (2) Sepsis ICD Code: A41.9 Diagnosis: Principal (3) UTI (urinary tract infection) ICD Code: N39.0 Diagnosis: Principal (4) Renal insufficiency ICD Code: N28.9 Diagnosis: Secondary (5) Tobacco abuse ICD Code: Z72.0 Diagnosis: Secondary (6) Nausea & vomiting ICD Code: R11.2 Diagnosis: Secondary Procedures intubation/extubation Brief History - From Admission The patient is a 51-year-old female with past medical history of diabetes who is presenting to the hospital with nausea and vomiting as well as abdominal pain. The patient says that she ate a salad bar last night and shortly thereafter started to feel sick. She said she initially felt chills and then developed stomach pain along with nausea and vomiting. She says she has been vomiting all night and all day. She says the medications received in the emergency department has improved her vomiting. She is very thirsty at this time. The patient states her abdominal pain is a 9 out of 10 in severity. It is located at the center of her abdomen. She also describes low back pain which she attributes to possibly her kidneys. She also has pain in the back of her thighs. She says she does feel this way when her sugars get out of control sometimes. She did not sleep at all overnight. She denies any pain on urination. She says she is currently visiting from [place]. She says she does tend to come to the hospital frequently secondary to her brittle diabetes. She says she takes 8 units of Levemir at night and is covered by a NovoLog sliding scale. She adjusts her Levemir to 7 units at night when traveling as she is doing at this time. CBC/BMP: 09/29/16 0337 09/29/16 0337 Significant Findings Laboratory Tests Test 09/27/16 09/27/16 09/28/16 09/29/16 14:05 16:20 04:20 03:37 Phosphorus Level 1.9 MG/DL (2.5-4.9) Random Glucose 561 MG/DL 53 MG/DL 123 MG/DL (74-106) (74-106) (74-106) White Blood Count 11.2 TH/MM3 11.3 TH/MM3 (4.0-11.0) (4.0-11.0) Red Blood Count 2.45 MIL/MM3 2.84 MIL/MM3 (4.00-5.30) (4.00-5.30) Hemoglobin 7.4 GM/DL 8.5 GM/DL (11.6-15.3) (11.6-15.3) Hematocrit 21.8 % 25.9 % (35.0-46.0) (35.0-46.0) Neutrophils (%) (Auto) 86.0 % 86.1 % (16.0-70.0) (16.0-70.0) Neutrophils # (Auto) 9.6 TH/MM3 9.8 TH/MM3 (1.8-7.7) (1.8-7.7) Potassium Level 3.1 MEQ/L (3.5-5.1) Carbon Dioxide Level 35.1 MEQ/L 35.8 MEQ/L (21.0-32.0) (21.0-32.0) Blood Urea Nitrogen 25 MG/DL (7-18) 20 MG/DL (7-18) Creatinine 1.13 MG/DL 1.10 MG/DL (0.50-1.00) (0.50-1.00) Estimat Glomerular Filtration 51 ML/MIN (>89) 53 ML/MIN (>89) Rate Calcium Level 7.1 MG/DL 7.6 MG/DL (8.5-10.1) (8.5-10.1) Protein Corrected Calcium 8.2 MG/DL (8.5-10.1) Total Protein 5.0 GM/DL (6.4-8.2) Lymphocytes (%) (Auto) 7.6 % (9.0-44.0) Lymphocytes # (Auto) 0.9 TH/MM3 (1.0-4.8) Imaging Last Impressions Upper Extremity Ultrasound 09/27/16 0000 Signed Impressions: Service Date/Time: Tuesday, September 27, 2016 14:13 - CONCLUSION: 1. No evidence of deep vein thrombosis. 2. Nonocclusive superficial vein thrombosis of the cephalic vein. Chip Crow MD Chest X-Ray 09/26/16 0000 Signed Impressions: Service Date/Time: Monday, September 26, 2016 03:51 - CONCLUSION: Improving aeration Jack Sung MD Abdomen X-Ray 09/25/16 0000 Signed Impressions: Service Date/Time: Sunday, September 25, 2016 10:29 - CONCLUSION: Feeding tube distal tip is in the gastric cardia region, barely beyond the GE junction. This should be advanced prior to use. Jack Hinojosa MD Abdomen/Pelvis CT 09/24/162132 Signed Impressions: Service Date/Time: Sunday, September 25, 2016 02:33 - CONCLUSION: Bilateral renal masses. Lesion on the left is highly suspicious for renal carcinoma. Jack Sung MD Chest CT 09/24/16 0000 Signed Impressions: Service Date/Time: Sunday, September 25, 2016 02:33 - CONCLUSION: Diffuse airspace disease. Small bilateral pleural effusions. Possibly reactive mediastinal karen enlargement. Jack Sung MD Lumbar Spine MRI 09/21/16 0000 Signed Impressions: Service Date/Time: August 09:54 - CONCLUSION: 1. At L4-5 there is focally advanced degenerative disc disease with endplate marrow changes, marked disc space narrowing and mild enhancement on both sides of the disc interspace post contrast. There is a moderate-sized disc protrusion that results in a moderate stenosis of the lateral recesses. The degree of enhancement is less than would be expected with a discitis or osteomyelitis. No evidence for epidural abscess. No acute fracture or spondylolisthesis. 2. At L3-4 there is a moderate-sized broad-based disc protrusion, right worse than left resulting in a right-sided lateral recess stenosis and mild left lateral recess stenosis. Nestor Rodriguez MD PE at Discharge GENERAL: Very pleasant 51 yo F, appearing in nad. CARDIOVASCULAR: RRR, mildly tachycardic. No murmurs. RESPIRATORY: Decreased breath sounds, however improving. No wheezing. GASTROINTESTINAL: Abdomen soft, nondistended. No guarding or rebound. MUSCULOSKELETAL: No joint tenderness, effusion. No LE edema noted. NEUROLOGICAL: Awake and alert. Moves extremities well. Hospital Course Acute hypoxemic respiratory failure with noncardiogenic pulmonary edema resolving, currently on nasal canula. Was intubated and extubated on 09/26/16. History of tobaccoism Nasal cannula to maintain saturations greater or equal to 92% Incentive spirometry while awake DuoNeb Bronchodilators every 4 hours while awake and every 2 hours as needed On Solumederol 40mg Q8 Follow-up on chest x-ray in a.m. Nicotine patch 14 mg daily. Cessation encouraged FEN/RENAL: Hypokalemia Hypophosphatemia Hypomagnesemia Acute kidney injury Bilateral renal masses left side 6 cm right-sided 1 cm Monitor renal function, I/O;s, electrolytes replacement per protocol. Will need K, replacement today by IV as patient is nauseated Follow BMP in a.m. Will need appropriate nephrology/urology evaluation once medically stabilized for bilateral renal masses ID: Escherichia coli bacteremia/UTI Continue with abx (Vanco, Zosyn, Levaquin) ID is following. Monitor for signs of infections ( Fever, WBC) Follow up on blood and urine cxs from 09/24 Strep pneumonia and Legionella urinary Ag negative 09/18 BC, urine cx: E.coli 09/19,09/20: Blood cultures: No growth 09/24 - blood cultures no growth 09/24 - urine no growth 09/25 - sputum no growth Remove gilbert and central line 09/29. CV: Hyperlipidemia Monitor HR and BP keep MAP>65mmHg Echo showed EF 55-60%. Lactic acid: 1.6 On Zocor 20 mg at night at home for dyslipidemia GI: Chronic pancreatitis GERD Bowel regimen per protocol with Colace 100 mg twice a day On Protonix 40mg daily ADA diet. HEME: Leukocytosis Anemia Monitor CBC ENDO: Hypothyroidism -Synthroid 175 g by mouth daily Diabetes mellitus, labile On SSI high scale with Accu-Cheks before meals/at bedtime. Continue Levemir to 5 units twice a day (was decreased) as noted hypoglycemic morning 09/28. Monitor BS. NEURO/PSYCH: THC use Bipolar disorder Peripheral neuropathy Chronic opiate use History of IV drug use History of alcoholism quit 17 years ago Acetaminophen for fever/pain Oxycodone5 mill grams every 4 hours as needed for pain. Morphine 3 mg IV as needed for breakthrough pain Continue Lamictal 200 mg at night, trazodone 4 mill grams a night and Effexor 50 mg daily for depression/bipolar disorder Decreased Neurontin from 600 3 times a day 100 milligrams 3 times a day for neuropathy. Vistaril 25 mg twice a day for anxiety Physical deconditioning, PT/OT evaluation PROPH: SCDs and heparin 5000 units subcutaneous every 12 hours for DVT prophylaxis. ACCESS: Left IJ CVP placed 09/25 DC plan: Improving.PT evaluated the patient recommends rehab. Case management consulted. Patient improved. Discharged to snf in stable condition. To follow up as OP with PCP and consultants. Pt Condition on Discharge: Stable Discharge Disposition: Discharge to SNF Discharge Time: > 30 minutes Discharge Instructions DIET: Follow Instructions for: Heart Healthy Diet, Diabetic Diet Speech Therapy-Diet Recommends: Regular Activities you can perform: Regular-No Restrictions Follow up Referrals: PCP Follow-up - 2-3 Days Pulmonology - 1 Week SNF/[facility] with [facility] New Medications: Insulin Detemir Inj (Levemir Inj) 1,000 unit/ 10 ML Vial 5 UNITS SQ Q12HR Blood Sugar Management #60 INJECTION Levofloxacin (Levofloxacin) 750 Mg Tablet 750 MG PO DAILY@14 infection #11 TAB Continued Medications: Albuterol 18 GM Inh (Ventolin Hfa 18 GM Inh) 90 Mcg/Act Aer 1 PUFF INH Q4H SHORTNESS OF BREATH #1 Ref 0 INHALER Dicyclomine (Bentyl) 20 Mg Tab 20 MG PO TID Bowel Management Ref 0 TAB Folic Acid (Folate) 1 Mg Tab 1 MG PO DAILY Nutritional Supplement Ref 0 TAB Furosemide (Lasix) 40 Mg Tab 40 MG PO DAILY #30 Ref 0 TAB Gabapentin (Gabapentin) 600 Mg Tab 600 MG PO TID #90 Ref 0 TAB Hydroxyzine Pamoate (Vistaril) 25 Mg Cap 25 MG PO BID Ref 0 CAP Insulin Lispro (Human) Inj (Humalog Inj) 1,000 Unit/10 Ml Vial SQ ACHS Sliding Scale Blood Sugar Management #1 Ref 0 VIAL Lamotrigine (Lamictal) 200 Mg Tab 200 MG PO HS Control Seizures #60 Ref 0 TAB Levothyroxine (Levothyroxine) 175 Mcg Tab 175 MCG PO DAILY Thyroid #30 Ref 0 TAB Loperamide (Loperamide) 2 Mg Tab 4 MG PO TID One tablet after each loose stool. Not to exceed 8 tablets per day. PRN DIARRHEA Ref 0 TAB Loratadine (Allergy Relief) 10 Mg Tab 10 MG PO DAILY TAB Pantoprazole (Pantoprazole) 40 Mg Tab 40 MG PO DAILY Reflux #30 Ref 0 TAB Potassium Chloride ER (Potassium Chloride ER) 10 Meq Cap 10 MEQ PO DAILY Electrolyte Replacement #30 Ref 0 CAP Promethazine Supp (Phenergan Supp) 25 Mg Supp 25 MG RECTAL BID PRN NAUSEA OR VOMITING Ref 0 SUPP Ranitidine (Zantac) 150 Mg Tab 150 MG PO BID Reduce Stomach Acid #60 Ref 0 TAB Simvastatin (Zocor) 20 Mg Tab 20 MG PO HS Cholesterol Management #30 Ref 0 TAB Trazodone (Trazodone) 100 Mg Tab 400 MG PO HS Control Depression #30 Ref 0 TAB Venlafaxine ER 24 HR (Effexor XR 24 HR) 150 Mg Cap 150 MG PO DAILY #30 Ref 0 CAP Discontinued Medications: Insulin Detemir Inj (Levemir Inj) 1,000 unit/ 10 ML Vial 8 UNITS SQ HS Do not mix with any other Insulin. Blood Sugar Management Ref 0 VIAL Radha Underwood MD Sep 30, 2016 08:17
[2016-09-30] MEDS: GABAPENTIN 100 MG CAP PO SCH ×3 (08:44→17:06)
[2016-09-30] MEDS: predniSONE 10 MG TAB PO SCH (08:44)
[2016-09-30] MEDS: SODIUM CHLORIDE 0.9% FLUSH 10 ML FLUSH IV FLUSH SCH ×2 (08:45→21:25)
[2016-09-30] MEDS: VENLAFAXINE HCL XR 75 MG CAP PO SCH (08:45)
[2016-09-30] MEDS: HEPARIN SODIUM - SQ 10,000 UNITS/ML VIAL SQ SCH ×2 (08:46→21:17)
[2016-09-30] MEDS: hydrOXYzine PAMOATE 25 MG CAP PO SCH ×2 (08:46→21:00)
[2016-09-30] MEDS: INSULIN DETEMIR 100 UNITS/ML VIAL SQ SCH ×2 (08:46→21:28)
--- NOTE | 2016-09-30 08:47 | HHI.PR ---
Subjective Remarks Feels improving. SOB imprpved some, however still requiring O2. She is dessating without O2 supplement. Patient says she feels very weak and she lives in [place], her ultimate goal is to go home. However the patient feels too weak and says she might benefit from rehab prior to go home. Can't go to bedside commode without help. Otherwise no fever or chills. Eating well. BS better controlled. No n/v/d/c. Objective Vitals Vital Signs Date Time Temp Pulse Resp B/P Pulse Ox O2 Delivery O2 Flow Rate FiO2 09/30/16 07:45 100 Nasal Cannula 1.00 09/30/16 06:00 83 09/30/16 04:00 98.0 81 24 127/72 99 09/30/16 04:00 81 09/30/16 02:00 79 09/30/16 00:00 86 09/30/16 00:00 97.4 86 26 127/60 94 09/29/16 22:00 96 09/29/16 21:54 98.3 98 18 139/74 90 09/29/16 20:00 92 09/29/16 19:49 98 Nasal Cannula 2.00 09/29/16 18:00 95 09/29/16 17:00 93 09/29/16 16:20 98.8 93 37 178/86 95 09/29/16 16:20 93 09/29/16 15:00 107 48 97 09/29/16 14:00 84 09/29/16 13:00 96 30 170/79 92 09/29/16 12:00 84 09/29/16 12:00 98.9 84 17 145/78 98 09/29/16 11:00 93 19 141/72 93 09/29/16 11:00 93 09/29/16 10:48 97 17 148/75 90 09/29/16 10:48 97 09/29/16 10:00 104 24 92 09/29/16 10:00 104 09/29/16 09:42 104 09/29/16 09:42 104 16 140/69 93 09/29/16 09:20 94 Nasal Cannula 2.00 09/29/16 09:00 87 28 170/81 96 09/29/16 09:00 87 I/O 6/2/17 6/06/1609/29/16 09/30/16 09/30/16 09/30/16 07:00 15:00 23:00 07:00 15:00 23:00 Intake Total 871 ml 1060 ml 550 ml 750 ml Output Total 2100 ml 1025 ml 800 ml 1000 ml Balance -1229 ml 35 ml -250 ml -250 ml Intake Oral 600 ml 960 ml 550 ml 750 ml IV Total 271 ml 100 ml Output Urine Total 2100 ml 1025 ml 800 ml 1000 ml # Voids 3 # Bowel Movements 1 1 1 2 Result Diagram: 09/29/16 0337 09/29/16 0337 Imaging Last Impressions Upper Extremity Ultrasound 09/27/16 0000 Signed Impressions: Service Date/Time: Tuesday, September 27, 2016 14:13 - CONCLUSION: 1. No evidence of deep vein thrombosis. 2. Nonocclusive superficial vein thrombosis of the cephalic vein. Chip Crow MD Chest X-Ray 09/26/16 0000 Signed Impressions: Service Date/Time: Monday, September 26, 2016 03:51 - CONCLUSION: Improving aeration Jack Sung MD Abdomen X-Ray 09/25/16 Signed Impressions: Service Date/Time: Sunday, September 25, 2016 10:29 - CONCLUSION: Feeding tube distal tip is in the gastric cardia region, barely beyond the GE junction. This should be advanced prior to use. Jack Hinojosa MD Abdomen/Pelvis CT 09/24/163 Signed Impressions: Service Date/Time: Sunday, September 25, 2016 02:33 - CONCLUSION: Bilateral renal masses. Lesion on the left is highly suspicious for renal carcinoma. Jack Sung MD Chest CT 09/24/16 Signed Impressions: Service Date/Time: Sunday, September 25, 2016 02:33 - CONCLUSION: Diffuse airspace disease. Small bilateral pleural effusions. Possibly reactive mediastinal karen enlargement. Jack Sung MD Lumbar Spine MRI 09/21/16 0000 Signed Impressions: Service Date/Time: August 09:54 - CONCLUSION: 1. At L4-5 there is focally advanced degenerative disc disease with endplate marrow changes, marked disc space narrowing and mild enhancement on both sides of the disc interspace post contrast. There is a moderate-sized disc protrusion that results in a moderate stenosis of the lateral recesses. The degree of enhancement is less than would be expected with a discitis or osteomyelitis. No evidence for epidural abscess. No acute fracture or spondylolisthesis. 2. At L3-4 there is a moderate-sized broad-based disc protrusion, right worse than left resulting in a right-sided lateral recess stenosis and mild left lateral recess stenosis. Nestor Rodriguez MD Objective Remarks GENERAL: Very pleasant 51 yo F, appearing in nad. CARDIOVASCULAR: RRR, mildly tachycardic. No murmurs. RESPIRATORY: Decreased breath sounds, however improving. No wheezing. GASTROINTESTINAL: Abdomen soft, nondistended. No guarding or rebound. MUSCULOSKELETAL: No joint tenderness, effusion. No LE edema noted. NEUROLOGICAL: Awake and alert. Moves extremities well. A/P Problem List: (1) DKA (diabetic ketoacidoses) ICD Code: E13.10 Status: Acute (2) Sepsis ICD Code: A41.9 Status: Acute (3) UTI (urinary tract infection) ICD Code: N39.0 Status: Acute (4) Renal insufficiency ICD Code: N28.9 Status: Acute (5) Tobacco abuse ICD Code: Z72.0 Status: Acute (6) Nausea & vomiting ICD Code: R11.2 Status: Acute Assessment and Plan RESP: Acute hypoxemic respiratory failure with noncardiogenic pulmonary edema resolving, currently on nasal canula. Was intubated and extubated on 09/26/16. History of tobaccoism Nasal cannula to maintain saturations greater or equal to 92% Incentive spirometry while awake DuoNeb Bronchodilators every 4 hours while awake and every 2 hours as needed On Solumederol 40mg Q8 Follow-up on chest x-ray in a.m. Nicotine patch 14 mg daily. Cessation encouraged FEN/RENAL: Hypokalemia Hypophosphatemia Hypomagnesemia Acute kidney injury Bilateral renal masses left side 6 cm right-sided 1 cm Monitor renal function, I/O;s, electrolytes replacement per protocol. Will need K, replacement today by IV as patient is nauseated Follow BMP in a.m. Will need appropriate nephrology/urology evaluation once medically stabilized for bilateral renal masses ID: Escherichia coli bacteremia/UTI Continue with abx (Vanco, Zosyn, Levaquin) ID is following. Monitor for signs of infections ( Fever, WBC) Follow up on blood and urine cxs from 09/24 Strep pneumonia and Legionella urinary Ag negative 09/18 BC, urine cx: E.coli 09/19,09/20: Blood cultures: No growth 09/24 - blood cultures no growth 09/24 - urine no growth 09/25 - sputum no growth Remove gilbert and central line 09/29. CV: Hyperlipidemia Monitor HR and BP keep MAP>65mmHg Echo showed EF 55-60%. Lactic acid: 1.6 On Zocor 20 mg at night at home for dyslipidemia GI: Chronic pancreatitis GERD Bowel regimen per protocol with Colace 100 mg twice a day On Protonix 40mg daily ADA diet. HEME: Leukocytosis Anemia Monitor CBC ENDO: Hypothyroidism -Synthroid 175 g by mouth daily Diabetes mellitus, labile On SSI high scale with Accu-Cheks before meals/at bedtime. Continue Levemir to 5 units twice a day (was decreased) as noted hypoglycemic morning 09/28. Monitor BS. NEURO/PSYCH: THC use Bipolar disorder Peripheral neuropathy Chronic opiate use History of IV drug use History of alcoholism quit 17 years ago Acetaminophen for fever/pain Oxycodone5 mill grams every 4 hours as needed for pain. Morphine 3 mg IV as needed for breakthrough pain Continue Lamictal 200 mg at night, trazodone 4 mill grams a night and Effexor 50 mg daily for depression/bipolar disorder Decreased Neurontin from 600 3 times a day 100 milligrams 3 times a day for neuropathy. Vistaril 25 mg twice a day for anxiety Physical deconditioning, PT/OT evaluation PROPH: SCDs and heparin 5000 units subcutaneous every 12 hours for DVT prophylaxis. ACCESS: Left IJ CVP placed 09/25 DC plan: Improving.PT evaluated the patient recommends rehab. Case management consulted for DC plan, ff. Transfer to med /surg floor Problem Qualifiers (1) DKA (diabetic ketoacidoses): Qualified Code: E10.10 - Diabetic ketoacidosis without coma associated with type 1 diabetes mellitus (2) UTI (urinary tract infection): Qualified Code: N39.0 - Urinary tract infection without hematuria, site unspecified (3) Nausea & vomiting: Qualified Code: R11.2 - Intractable vomiting with nausea, unspecified vomiting type Radha Underwood MD Sep 30, 2016 08:47
[2016-09-30] MEDS: REMOVE OLD PATCH T-DERMAL SCH (08:48)
[2016-09-30] MEDS ORDERED: LEVO750T3 PO (08:49)
[2016-09-30] MEDS: NICOTINE 14 MG/24 HR PATCH T-DERMAL SCH (08:49)
[2016-09-30] MEDS: CALCIUM CARBONATE 500 MG CHEWABLE TAB CHEW SCH ×2 (09:55→21:18)
--- NOTE | 2016-09-30 13:32 | HHI.PR ---
Subjective Remarks 51 YOWF with VDRF,Bilat Infilt, E.coli UTI Weaned to NC Feels much better Good appetite Breathing better Objective Vital Signs Vital Signs Date Time Temp Pulse Resp B/P Pulse Ox O2 Delivery O2 Flow Rate FiO2 09/30/16 12:00 98.5 89 29 138/68 92 09/30/16 12:00 89 09/30/16 10:00 107 09/30/16 08:00 87 09/30/16 08:00 98.3 87 20 128/66 97 09/30/16 07:45 100 Nasal Cannula 1.00 09/30/16 06:00 83 09/30/16 04:00 98.0 81 24 127/72 99 09/30/16 04:00 81 09/30/16 02:00 79 09/30/16 00:00 86 09/30/16 00:00 97.4 86 26 127/60 94 09/29/16 22:00 96 09/29/16 21:54 98.3 98 18 139/74 90 09/29/16 20:00 92 09/29/16 19:49 98 Nasal Cannula 2.00 09/29/16 18:00 95 09/29/16 17:00 93 09/29/16 16:20 98.8 93 37 178/86 95 09/29/16 16:20 93 09/29/16 15:00 107 48 97 09/29/16 14:00 84 I/O 09/29/16 09/29/16 09/29/16 09/30/16 09/30/16 09/30/16 07:00 15:00 23:00 07:00 15:00 23:00 Intake Total 871 ml 1060 ml 550 ml 750 ml Output Total 2100 ml 1025 ml 800 ml 1000 ml Balance -1229 ml 35 ml -250 ml -250 ml Intake Oral 600 ml 960 ml 550 ml 750 ml IV Total 271 ml 100 ml Output Urine Total 2100 ml 1025 ml 800 ml 1000 ml # Voids 3 # Bowel Movements 1 1 1 2 Result Diagram: 09/29/16 0337 09/29/16 033 Objective Remarks GENERAL: MBMN WF, on Vent SKIN: Warm and dry. HEAD: Normocephalic. EYES: No scleral icterus. No injection or drainage. NECK: Supple, trachea midline. No JVD or lymphadenopathy. CARDIOVASCULAR: Regular rate and rhythm without murmurs, gallops, or rubs. RESPIRATORY: Breath sounds equal bilaterally. No accessory muscle use. GASTROINTESTINAL: Abdomen soft, non-tender, nondistended. MUSCULOSKELETAL: No cyanosis, or edema. BACK: Nontender without obvious deformity. No CVA tenderness. A/P Assessment and Plan VDRF, s/p extubation Bilat Infilt E.coli UTI Ch Pain PLAN: Cont Abx Zosyn per ID Aerosol nebs Supplement 02 Wean 02 to keep sat >92% Stable to tr to floor Oneal Russell MD Sep 30, 2016 13:32
[2016-09-30] MEDS: LEVOFLOXACIN 750 MG TAB PO SCH (14:25)
[2016-09-30] MEDS: traZODone HCL 100 MG TAB PO SCH (21:18)
[2016-09-30] MEDS: lamoTRIgine 100 MG TAB PO SCH (21:18)
[2016-09-30] MEDS: PANTOPRAZOLE SODIUM 40 MG VIAL IV PUSH SCH (21:19)
[2016-10-01] VITALS: BP 133/72; PULSE 99; RESP 18; TEMP 98.1; O2SAT 91
[2016-10-01 04:00] VITALS: BP 117/58; PULSE 88; RESP 18; TEMP 98.1; O2SAT 94
[2016-10-01] MEDS: LEVOTHYROXINE SODIUM 150 MCG TAB PO SCH (05:47)
[2016-10-01] MEDS: LEVOTHYROXINE SODIUM 25 MCG TAB PO SCH (05:47)
[2016-10-01] MEDS: INSULIN ASPART SUPPLEMENTAL SCALE SQ SCH ×2 (06:41→12:04)
[2016-10-01 08:00] VITALS: BP 132/64; PULSE 88; RESP 20; TEMP 98.1; O2SAT 93
[2016-10-01 08:32] VITALS: O2SAT 96
[2016-10-01] MEDS: SODIUM CHLORIDE 0.9% FLUSH 10 ML FLUSH IV FLUSH SCH (09:00)
[2016-10-01] MEDS: REMOVE OLD PATCH T-DERMAL SCH (09:00)
--- NOTE | 2016-10-01 09:00 | HHI.PR ---
Subjective Remarks Patient is feeling much better. No n/v/d/c. She is satting well on room air at this time. Says she is able to ambulate some with the walker. Feels weak but improving. Objective Vitals Vital Signs Date Time Temp Pulse Resp B/P Pulse Ox O2 Delivery O2 Flow Rate FiO2 10/01/16 08:32 96 21 10/01/16 04:00 Room Air 10/01/16 04:00 98.1 88 18 117/58 94 10/01/16 00:00 98.1 99 18 133/72 91 10/01/16 00:00 Room Air 09/30/16 20:00 98.5 90 20 147/75 92 09/30/16 20:00 Room Air 09/30/16 16:00 102 09/30/16 16:00 98.6 102 16 142/78 95 09/30/16 14:00 90 09/30/16 12:00 98.5 89 29 138/68 92 09/30/16 12:00 89 09/30/16 10:00 107 I/O 09/30/16 09/30/16 09/30/16 10/01/16 10/01/16 10/01/16 07:00 15:00 23:00 07:00 15:00 23:00 Intake Total 750 ml 250 ml 600 ml 240 ml Output Total 1000 ml 1000 ml Balance -250 ml -750 ml 600 ml 240 ml Intake Oral 750 ml 250 ml 600 ml 240 ml Output Urine Total 1000 ml 1000 ml # Voids 5 2 2 # Bowel Movements 2 0 1 Result Diagram: 09/29/16 0337 09/29/16 0337 Imaging Last Impressions Upper Extremity Ultrasound 09/27/16 0000 Signed Impressions: Service Date/Time: Tuesday, September 27, 2016 14:13 - CONCLUSION: 1. No evidence of deep vein thrombosis. 2. Nonocclusive superficial vein thrombosis of the cephalic vein. Chip Crow MD Chest X-Ray 09/26/16 0000 Signed Impressions: Service Date/Time: Monday, September 26, 2016 03:51 - CONCLUSION: Improving aeration Jack Sung MD Abdomen X-Ray 09/25/16 0000 Signed Impressions: Service Date/Time: Sunday, September 25, 2016 10:29 - CONCLUSION: Feeding tube distal tip is in the gastric cardia region, barely beyond the GE junction. This should be advanced prior to use. Jack Hinojosa MD Abdomen/Pelvis CT 09/24/16 2133 Signed Impressions: Service Date/Time: Sunday, September 25, 2016 02:33 - CONCLUSION: Bilateral renal masses. Lesion on the left is highly suspicious for renal carcinoma. Jack Sung MD Chest CT 09/24/16 0000 Signed Impressions: Service Date/Time: Sunday, September 25, 2016 02:33 - CONCLUSION: Diffuse airspace disease. Small bilateral pleural effusions. Possibly reactive mediastinal karen enlargement. Jack Sung MD Lumbar Spine MRI 09/21/16 0000 Signed Impressions: Service Date/Time: August 09:54 - CONCLUSION: 1. At L4-5 there is focally advanced degenerative disc disease with endplate marrow changes, marked disc space narrowing and mild enhancement on both sides of the disc interspace post contrast. There is a moderate-sized disc protrusion that results in a moderate stenosis of the lateral recesses. The degree of enhancement is less than would be expected with a discitis or osteomyelitis. No evidence for epidural abscess. No acute fracture or spondylolisthesis. 2. At L3-4 there is a moderate-sized broad-based disc protrusion, right worse than left resulting in a right-sided lateral recess stenosis and mild left lateral recess stenosis. Nestor Rodriguez MD Objective Remarks GENERAL: Very pleasant 51 yo F, appearing in nad. CARDIOVASCULAR: RRR, mildly tachycardic. No murmurs. RESPIRATORY: Decreased breath sounds, however improving. No wheezing. GASTROINTESTINAL: Abdomen soft, nondistended. No guarding or rebound. MUSCULOSKELETAL: No joint tenderness, effusion. No LE edema noted. NEUROLOGICAL: Awake and alert. Moves extremities well. A/P Problem List: (1) DKA (diabetic ketoacidoses) ICD Code: E13.10 Status: Acute (2) Sepsis ICD Code: A41.9 Status: Acute (3) UTI (urinary tract infection) ICD Code: N39.0 Status: Acute (4) Renal insufficiency ICD Code: N28.9 Status: Acute (5) Tobacco abuse ICD Code: Z72.0 Status: Acute (6) Nausea & vomiting ICD Code: R11.2 Status: Acute Assessment and Plan RESP: Acute hypoxemic respiratory failure with noncardiogenic pulmonary edema resolving, currently on nasal canula. Was intubated and extubated on 09/26/16. History of tobaccoism Nasal cannula to maintain saturations greater or equal to 92% Incentive spirometry while awake DuoNeb Bronchodilators every 4 hours while awake and every 2 hours as needed On Solumederol 40mg Q8 Follow-up on chest x-ray in a.m. Nicotine patch 14 mg daily. Cessation encouraged FEN/RENAL: Hypokalemia Hypophosphatemia Hypomagnesemia Acute kidney injury Bilateral renal masses left side 6 cm right-sided 1 cm Monitor renal function, I/O;s, electrolytes replacement per protocol. Will need K, replacement today by IV as patient is nauseated Follow BMP in a.m. Will need appropriate nephrology/urology evaluation once medically stabilized for bilateral renal masses ID: Escherichia coli bacteremia/UTI Continue with abx (Vanco, Zosyn, Levaquin) ID is following. Monitor for signs of infections ( Fever, WBC) Follow up on blood and urine cxs from 09/24 Strep pneumonia and Legionella urinary Ag negative 09/18 BC, urine cx: E.coli 09/19,09/20: Blood cultures: No growth 09/24 - blood cultures no growth 09/24 - urine no growth 09/25 - sputum no growth Remove gilbert and central line 09/29. CV: Hyperlipidemia Monitor HR and BP keep MAP>65mmHg Echo showed EF 55-60%. Lactic acid: 1.6 On Zocor 20 mg at night at home for dyslipidemia GI: Chronic pancreatitis GERD Bowel regimen per protocol with Colace 100 mg twice a day On Protonix 40mg daily ADA diet. HEME: Leukocytosis Anemia Monitor CBC ENDO: Hypothyroidism -Synthroid 175 g by mouth daily Diabetes mellitus, labile On SSI high scale with Accu-Cheks before meals/at bedtime. Continue Levemir to 5 units twice a day (was decreased) as noted hypoglycemic morning 09/28. Monitor BS. NEURO/PSYCH: THC use Bipolar disorder Peripheral neuropathy Chronic opiate use History of IV drug use History of alcoholism quit 17 years ago Acetaminophen for fever/pain Oxycodone5 mill grams every 4 hours as needed for pain. Morphine 3 mg IV as needed for breakthrough pain Continue Lamictal 200 mg at night, trazodone 4 mill grams a night and Effexor 50 mg daily for depression/bipolar disorder Decreased Neurontin from 600 3 times a day 100 milligrams 3 times a day for neuropathy. Vistaril 25 mg twice a day for anxiety Physical deconditioning, PT/OT evaluation PROPH: SCDs and heparin 5000 units subcutaneous every 12 hours for DVT prophylaxis. ACCESS: Left IJ CVP placed 09/25 DC plan: Improving.PT evaluated the patient recommends rehab. Case management consulted for DC plan, ff. Problem Qualifiers (1) DKA (diabetic ketoacidoses): Qualified Code: E10.10 - Diabetic ketoacidosis without coma associated with type 1 diabetes mellitus (2) UTI (urinary tract infection): Qualified Code: N39.0 - Urinary tract infection without hematuria, site unspecified (3) Nausea & vomiting: Qualified Code: R11.2 - Intractable vomiting with nausea, unspecified vomiting type Radha Underwood MD Oct 01, 2016 09:00
[2016-10-01] MEDS: DOCUSATE SODIUM 100 MG CAP PO SCH (09:25)
[2016-10-01] MEDS: VENLAFAXINE HCL XR 75 MG CAP PO SCH (09:25)
[2016-10-01] MEDS: HEPARIN SODIUM - SQ 10,000 UNITS/ML VIAL SQ SCH (09:25)
[2016-10-01] MEDS: hydrOXYzine PAMOATE 25 MG CAP PO SCH (09:26)
[2016-10-01] MEDS: INSULIN DETEMIR 100 UNITS/ML VIAL SQ SCH (09:27)
[2016-10-01] MEDS: CALCIUM CARBONATE 500 MG CHEWABLE TAB CHEW SCH (09:28)
[2016-10-01] MEDS: GABAPENTIN 100 MG CAP PO SCH ×2 (09:29→12:04)
[2016-10-01] MEDS: NICOTINE 14 MG/24 HR PATCH T-DERMAL SCH (09:29)
[2016-10-01 10:16] LABS: AUTOMATED NEUTROPHIL # 8.5 TH/MM3 (1.8-7.7); BASOPHIL # 0.1 TH/MM3 (0-0.2); BASOPHIL % 0.5 % (0.0-2.0); EOSINOPHIL # 0.3 TH/MM3 (0-0.4); EOSINOPHIL % 2.6 % (0.0-4.0); HEMATOCRIT 29.3 % (35.0-46.0); HEMO FLAGS DIFF FINAL; LYMPH % 21.5 % (9.0-44.0); LYMPHOCYTE # 2.7 TH/MM3 (1.0-4.8); MEAN CELL VOLUME 90.1 FL (80.0-100.0); MEAN CORPUSCULAR HEMOGLOBIN 30.4 PG (27.0-34.0); MEAN CORPUSCULAR HGB CONC 33.8 % (32.0-36.0); MONO % 8.6 % (0.0-8.0); NEUT % 66.8 % (16.0-70.0); PLATELET COUNT 435 TH/MM3 (150-450); RED BLOOD COUNT 3.25 MIL/MM3 (4.00-5.30); RED CELL DISTRIBUTION WIDTH 13.6 % (11.6-17.2); WHITE BLOOD COUNT 12.8 TH/MM3 (4.0-11.0)
[2016-10-01 10:31] LABS: BICARBONATE 33.7 MEQ/L (21.0-32.0); POTASSIUM 4.5 MEQ/L (3.5-5.1)
[2016-10-01 12:00] VITALS: BP 139/68; PULSE 109; RESP 20; TEMP 98.6; O2SAT 92
[2016-10-01] MEDS: LEVOFLOXACIN 750 MG TAB PO SCH (14:35)
--- NOTE | 2016-10-01 14:39 | HHI.PR ---
Subjective Remarks 51 YOWF with VDRF,Bilat Infilt, E.coli UTI Feels much better Good appetite Breathing better Weaned to RA Objective Vital Signs Vital Signs Date Time Temp Pulse Resp B/P Pulse Ox O2 Delivery O2 Flow Rate FiO2 10/01/16 12:00 98.6 109 20 139/68 92 10/01/16 08:32 96 21 10/01/16 08:00 98.1 88 20 132/64 93 10/01/16 04:00 Room Air 10/01/16 04:00 98.1 88 18 117/58 94 10/01/16 00:00 98.1 99 18 133/72 91 10/01/16 00:00 Room Air 09/30/16 20:00 98.5 90 20 147/75 92 09/30/16 20:00 Room Air 09/30/16 16:00 102 09/30/16 16:00 98.6 102 16 142/78 95 I/O 09/30/16 09/30/16 09/30/16 10/01/16 10/01/16 10/01/16 07:00 15:00 23:00 07:00 15:00 23:00 Intake Total 750 ml 250 ml 600 ml 240 ml Output Total 1000 ml 1000 ml Balance -250 ml -750 ml 600 ml 240 ml Intake Oral 750 ml 250 ml 600 ml 240 ml Output Urine Total 1000 ml 1000 ml # Voids 5 2 2 # Bowel Movements 2 0 1 Result Diagram: 10/01/16 0854 10/01/16 0854 Objective Remarks GENERAL: MBMN WF, on Vent SKIN: Warm and dry. HEAD: Normocephalic. EYES: No scleral icterus. No injection or drainage. NECK: Supple, trachea midline. No JVD or lymphadenopathy. CARDIOVASCULAR: Regular rate and rhythm without murmurs, gallops, or rubs. RESPIRATORY: Breath sounds equal bilaterally. No accessory muscle use. GASTROINTESTINAL: Abdomen soft, non-tender, nondistended. MUSCULOSKELETAL: No cyanosis, or edema. BACK: Nontender without obvious deformity. No CVA tenderness. A/P Assessment and Plan VDRF, s/p extubation Bilat Infilt E.coli UTI Ch Pain PLAN: Cont Abx Zosyn per ID Aerosol nebs Supplement 02 Wean 02 to keep sat >92% Stableon RA DC plans underway for rehab. Oneal Russell MD Oct 01, 2016 14:39
== END 2016-10-01 14:57 | DRG 871 ==
LOC: NEPC 15:46 → NEDA 19:16 → N07A 21:33 → HIMN 09-24 21:00 → N04B 09-30 18:15
PROVIDERS: ADMIT Hospitalist; ATTEND Hospitalist
PROC: 5A1945Z Respiratory Ventilation, 24-96 Consecutive Hours (ICD-10-PCS; principal; 2016-09-25)
PROC: 0BH17EZ Insertion of Endotracheal Airway into Trachea, Via Natural or Artificial Opening (ICD-10-PCS; 2016-09-25)
PROC: B544ZZA Ultrasonography of Left Jugular Veins, Guidance (ICD-10-PCS; 2016-09-25)
PROC: 02HV33Z Insertion of Infusion Device into Superior Vena Cava, Percutaneous Approach (ICD-10-PCS; 2016-09-25)
DX: A41.51 Sepsis due to Escherichia coli [E. coli] (principal); E13.10 Other specified diabetes mellitus with ketoacidosis without coma; J96.01 Acute respiratory failure with hypoxia; N17.9 Acute kidney failure, unspecified; J81.1 Chronic pulmonary edema; K86.1 Other chronic pancreatitis; J44.1 Chronic obstructive pulmonary disease with (acute) exacerbation; N39.0 Urinary tract infection, site not specified; E83.42 Hypomagnesemia; E83.39 Other disorders of phosphorus metabolism; G62.9 Polyneuropathy, unspecified; I10 Essential (primary) hypertension; B96.20 Unspecified Escherichia coli [E. coli] as the cause of diseases classified elsewhere; E78.5 Hyperlipidemia, unspecified; E87.6 Hypokalemia; E86.0 Dehydration; E89.0 Postprocedural hypothyroidism; M51.36 Other intervertebral disc degeneration, lumbar region; K21.9 Gastro-esophageal reflux disease without esophagitis; D64.9 Anemia, unspecified; N28.89 Other specified disorders of kidney and ureter; F10.21 Alcohol dependence, in remission; F12.90 Cannabis use, unspecified, uncomplicated; F17.210 Nicotine dependence, cigarettes, uncomplicated; F31.9 Bipolar disorder, unspecified; F41.9 Anxiety disorder, unspecified; Z79.4 Long term (current) use of insulin; Z79.891 Long term (current) use of opiate analgesic; Z85.528 Personal history of other malignant neoplasm of kidney; Z85.850 Personal history of malignant neoplasm of thyroid; Z88.2 Allergy status to sulfonamides
CPT/HCPCS: 31500; 36556; 36600; 71010; 71260; 72158; 74000; 74176; 74177; 76937; 80048; 80053; 80074; 80076; 80202; 80307; 81001; 82010; 82550; 82552; 82805; 82947; 82948; 83605; 83690; 83735; 83880; 84100; 84132; 84155; 84484; 84702; 85007; 85025; 85027; 86703; 87040; 87070; 87077; 87086; 87186; 87205; 87449; 87641; 93005; 93306; 93971; 94002; 94003; 94150; 94620; 94640; 94664; 96361; 96372; 96374; 96375; A9579; C9113; J0295; J0610; J0692; J0696; J0780; J1644; J1815; J1940; J1956; J2270; J2405; J2543; J2920; J2930; J3010; J3370; J3475; J3480; J7030; J7050; J7512; Q0177; Q9963; Q9967